=== PATIENT | female | born 1985 | race Caucasian/White ===

== ENCOUNTER → 2022-09-15 | Outpatient (CLI) | payer MEDICAID, SELFPAY ==
--- NOTE | 2022-09-15 15:36 | MRI_ITS ---
STUDY: MRI THORACIC SPINE WITHOUT CONTRAST REASON FOR EXAM: Female, 36 years old. pain TECHNIQUE: Standardized fat and water weighted pulse sequences were obtained in the sagittal and axial planes. Contrast: No contrast administered. COMPARISON: None. FINDINGS: Normal kyphosis of the thoracic spine. There is no substantial scoliosis. T1-2, T2-3, T3-4, T4-5, T5-6, T6-7, T7-8, T8-9, T9-10, T10-11, T11-12: Normal endplates. Normal disc hydration, heights and morphology of the corresponding intervertebral discs. Normal central canal and intervertebral neural foramina at the corresponding levels. Normal visualized thoracic cord. Normal conus medullaris that terminates at the . The soft tissue structures are unremarkable. MRI/Spine Thoracic (Routine) IMPRESSION: Normal unenhanced MRI examination of the thoracic spine. Electronically Signed: Joao Gaspar MD at 18:42 EST ,
--- NOTE | 2022-09-15 15:36 | MRI_ITS ---
PROCEDURE: LUMBAR SPINE MRI WITHOUT CONTRAST COMPARISONS: None CLINICAL INDICATION: Back injury in May with persistent low back pain TECHNIQUE: Noncontrast lumbosacral spine MRI study was performed multiple sequences in sagittal and axial planes. FINDINGS: Alignment of the lumbosacral spine is normal. Normal vertebral marrow signal. Normal partially visualized sacroiliac joints. The conus medullaris terminates at L1-2. No abnormal signal within the visualized cord. L1-L2: Normal disc height and morphology. Normal spinal canal and neuroforamina. L2-L3: Normal disc height and morphology. Normal spinal canal and neuroforamina. L3-L4: Normal disc height and morphology. Normal spinal canal and neuroforamina. L4-L5: Disc bulge and posterior annular fissure. Normal spinal canal and neuroforamina. L5-S1: Normal disc height and morphology. Normal spinal canal and neuroforamina. Normal appearance of the paraspinous muscles. MRI/Spine Lumbar (Routine) IMPRESSION: Disc bulge and posterior annular fissure at L4-5. No associated spinal canal or neural foraminal stenosis. Electronically Signed: Bert Mcclure MD at 17:09 EST ,
== END | disposition home or self-care (01) ==
LOC: MRI 15:31
PROVIDERS: PCP Nurse Practitioner Family; Referring Provider Orthopaedic Surgery; Visit Provider Orthopaedic Surgery
DX: S33.5XXA Sprain of ligaments of lumbar spine, initial encounter (principal); S23.9XXA Sprain of unspecified parts of thorax, initial encounter
CPT/HCPCS: 72146; 72148

== ENCOUNTER → 2023-06-02 | Outpatient (CLI) | payer MEDICAID, SELFPAY ==
--- NOTE | 2023-06-02 10:00 | MRI_ITS ---
STUDY: MRI LUMBAR SPINE WITHOUT CONTRAST REASON FOR EXAM: Female, 37 years old. Pain in low back and ribs, sharp/achy/tingling bilateral post. legs x1+yrs, [facility] TECHNIQUE: Standardized fat and water weighted pulse sequences were obtained in the sagittal and axial planes. COMPARISON: MRI lumbar spine without contrast 09/15/2022. FINDINGS: T10-T11, T11-T12 and T12-L1: (Sagittal only). Normal endplates. Normal disc height, hydration and morphology. Normal central canal and bilateral intervertebral neural foramina. Normal lumbar lordosis. There is no substantial scoliosis. Normal conus medullaris that terminates at the mid L1 vertebral body level. L1-2: Normal endplates. Normal disc height, hydration and morphology. Normal bilateral facet joints. Normal central canal and bilateral lateral recesses. Normal bilateral intervertebral neural foramina. L2-3: Normal endplates. Normal disc height, hydration and morphology. Normal bilateral facet joints. Normal central canal and bilateral lateral recesses. Normal bilateral intervertebral neural foramina. L3-4: Normal endplates. Normal disc height, hydration and morphology. Normal bilateral facet joints. Normal central canal and bilateral lateral recesses. Normal bilateral intervertebral neural foramina. L4-5: Normal endplates. Normal disc height with moderate loss of disc hydration. Mild left degenerative facet arthropathy. Normal right facet joint. Normal central canal and bilateral lateral recesses. Normal bilateral intervertebral neural foramina. L5-S1: Normal endplates. Normal disc height, hydration and morphology. Normal bilateral facet joints. Normal central canal and bilateral lateral recesses. Normal bilateral intervertebral neural foramina. Normal visualized sacral ala. Normal visualized paraspinous soft tissue structures. MRI/Spine Lumbar (Routine) IMPRESSION: 1. No MRI evidence of lumbar extruded disc fragment, disc protrusion, spinal stenosis or nerve root displacement. 2. No significant interval change when compared to 09/15/2022. Electronically Signed: Xavier Whipple MD at 10:53 EDT ,
== END | disposition home or self-care (01) ==
LOC: MRI 09:10
PROVIDERS: PCP Nurse Practitioner Family; Referring Provider Orthopaedic Surgery; Visit Provider Orthopaedic Surgery
DX: M54.50 Low back pain, unspecified (principal)
CPT/HCPCS: 72148

== ENCOUNTER → 2025-03-26 | Outpatient (CLI) | payer MEDICAID, SELFPAY ==
[2025-03-26 17:12] LABS: Hematocrit 39.3 % (37-47); Hemoglobin 13.5 g/dL (12.0-15.0); Immature Granulocytes Count 0.090 X10^3/uL (0.0-0.0); Mean Corp Hgb Conc 34.4 g/dL (32-36); Mean Corpuscular Volume 86.9 fL (81-99); Mean Platelet Vol. 10.2 fl (6.2-12.0); NRBC Flagged by Analyzer 0 % (0-5); Platelet Count 279 K/mm3 (150-450); RBC Distribution Width CV 13.6 % (11.6-14.6); RBC Distribution Width SD 43.1 fl (35.1-43.9); Red Blood Count 4.52 M/mm3 (4.2-5.4); White Blood Count 9.0 K/mm3 (4.4-11.0)
[2025-03-26 17:33] LABS: AST(SGOT) 20 U/L (<=31); Alanine Aminotransfer ALT/SGPT 24 U/L (<=34); Albumin, Serum 4.5 g/dL (3.5-5.0); Alkaline Phosphatase 97 U/L (35-104); Anion Gap 15 (5-15); BUN 12 mg/dL (4-19); BUN/Creat Ratio 13.9 RATIO (10-20); Calcium,Total 9.6 mg/dL (7.6-11.0); Carbon Dioxide 18.9 mmol/L (21.0-32.0); Chloride 103 mmol/L (98-108); Cholesterol 147 mg/dL (<=200); Free T3 2.9 pg/mL (2.18-3.98); Globulin 3.2 g/dL (2.2-4.2); Glucose 96 mg/dL (70-99); Low Density Lipoprotein Calc. 62 mg/dL; Potassium 4.0 mmol/L (3.3-5.1); Triglycerides 204 mg/dL; Uric Acid 4.2 mg/dL (2.6-6.0); Very Low Density Lipoprotein 41 mg/dL (5-40); cholesterol:hdl ratio screen 3.33
--- OUTSIDE RECORDS SUMMARY | 2025-03-26 23:03 | XMS RPT_ITS | CCD ---
Author Organization [facility] Care Team Providers Care Roll Up Guider Operator Name Role Phone LILI CARLOS DO Unavailable Unavailable DIDURLILI DO Unavailable Unavailable DIDURLILI DO Unavailable Unavailable CHRISTIANA, DESI E Unavailable Unavailable CHRISTIANA, DESI E Unavailable Unavailable CHRISTIANA, DESI E Unavailable Unavailable TAMIKA MARCIAL CNP Unavailable Unavailable PROVIDER, UNKNOWN Unavailable Unavailable PROVIDER, UNKNOWN Unavailable Unavailable TAMIKA MARCIAL CNP Referring Unavailable TAMIKA MARCIAL CNP Consulting Unavailable CHELSIE, DR JUAN MANUEL Campoverde Attending Unavailable HOLGUIN, DR JUAN MANUEL Campoverde Primary Care Unavailable HOLGUIN, DR JUAN MANUEL Campoverde Admitting Unavailable PROVIDER, UNKNOWN Consulting Unavailable PROVIDER, UNKNOWN Consulting Unavailable Unavailable Primary Care Provider UnavailManny Cheng Attending Unavailable Manny Wang Referring Unavailable Ungerer, Justa Primary Care Unavailable Ungerer, Justa Referring Unavailable Manny Wang Attending Unavailable Ungerer, Justa Primary Care Unavailable RollyJules david Attending Unavailable Ungerer, Justa Primary Care Unavailable Ungerer, Justa Referring Unavailable Ungerer, Justa Primary Care Unavailable David Chao Attending Unavailable Ungerer, Justa Primary Care Unavailable RollyJules Attending Unavailable Ungerer, Justa Primary Care Unavailable Ungerer, Justa Referring Unavailable Manny Wang Attending Unavailable Unavailable Primary Care Provider Unavailabl e UNGERER TRAFFIC ENGINEERING DIRECTOR-SENIOR ENVIRONMENTAL PRACTICE LEADER, JUSTA Primary Care Physician KESHAV TRAFFIC ENGINEERING DIRECTOR-SENIOR ENVIRONMENTAL PRACTICE LEADER, VERONICA Eric Attending Unava ilable UNGERER TRAFFIC ENGINEERING DIRECTOR-SENIOR ENVIRONMENTAL PRACTICE LEADER, JUSTA Primary Care Unalexy SALDIVAR APRN-SENIOR ENVIRONMENTAL PRACTICE LEADER, VERONICA Eric Attending Unava ilable UNGERER TRAFFIC ENGINEERING DIRECTOR-SENIOR ENVIRONMENTAL PRACTICE LEADER, JUSTA Primary Care Unavai anastasiia SALDIVAR TRAFFIC ENGINEERING DIRECTOR-SENIOR ENVIRONMENTAL PRACTICE LEADER, VERONICA Eric Attending Unava ilable UNGERER TRAFFIC ENGINEERING DIRECTOR-SENIOR ENVIRONMENTAL PRACTICE LEADER, JUSTA Primary Care LILI Katz MD Attending Unavailable UNGERER TRAFFIC ENGINEERING DIRECTOR-SENIOR ENVIRONMENTAL PRACTICE LEADER, [facility] Primary Care Liliana NGO MD, LILI Jean-Baptiste Attending Unavailable UNGERER TRAFFIC ENGINEERING DIRECTOR-SENIOR ENVIRONMENTAL PRACTICE LEADER, [facility] Primary Care Liliana MCKEON MD, MEGAN Consulting Unavailable SALDIVAR TRAFFIC ENGINEERING DIRECTOR-SENIOR ENVIRONMENTAL PRACTICE LEADER, VERONICA Eric Attending Unava ilable UNGERER TRAFFIC ENGINEERING DIRECTOR-SENIOR ENVIRONMENTAL PRACTICE LEADER, [facility] Primary Care Unavai lable SALDIVAR TRAFFIC ENGINEERING DIRECTOR-SENIOR ENVIRONMENTAL PRACTICE LEADER, VERONICA D Attending Unava ilable UNGERER TRAFFIC ENGINEERING DIRECTOR-SENIOR ENVIRONMENTAL PRACTICE LEADER, [facility] Care Liliana NGO MD, LILI Jean-Baptiste Attending Unavailable UNGERER TRAFFIC ENGINEERING DIRECTOR-SENIOR ENVIRONMENTAL PRACTICE LEADER, [facility] Primary Care Liliana NGO MD, LILI Jean-Baptiste Attending Unavailable UNGERER TRAFFIC ENGINEERING DIRECTOR-SENIOR ENVIRONMENTAL PRACTICE LEADER, [facility] Care Unavai lable SALDIVAR TRAFFIC ENGINEERING DIRECTOR-SENIOR ENVIRONMENTAL PRACTICE LEADER, VERONICA Eric Attending Unava ilable UNGERER TRAFFIC ENGINEERING DIRECTOR-SENIOR ENVIRONMENTAL PRACTICE LEADER, [facility] Liliana NGO MD, LILI Jean-Baptiste Attending Unavailable PHYSICIAN, NONE Primary Care Unavailable UNGERER TRAFFIC ENGINEERING DIRECTOR-SENIOR ENVIRONMENTAL PRACTICE LEADER, [facility] Liliana NGO MD, LILI Jean-Baptiste Attending Unavailable STEVEN NEWTON, LILI Jean-Baptiste Attending Unavailable RAHEEM SINGH MD Consulting Unavailable UNGERER TRAFFIC ENGINEERING DIRECTOR-SENIOR ENVIRONMENTAL PRACTICE LEADER, [facility] TAMIKA Castillo CNP Referring Unavailable [facility] JUSTA CONTAINER SHOP WELDER Primary Care Unavailable [facility], JUSTA CONTAINER SHOP WELDER Attending Unavailable UNGERER, JUSTA CONTAINER SHOP WELDER Admitting Unavailable TAMIKA MARCIAL CNP Consulting Unavailable PROVIDER, UNKNOWN Consulting Unavailable PROVIDER, UNKNOWN Consulting Unavailable RENETTA MESSINA MD Primary Care Unava ilable RENETTA MESSINA MD Attending Unava ilable RENETTA MESSINA MD Admitting Unava ilable TAMIKA MARCIAL CNP Consulting Unavailable PROVIDER, UNKNOWN Consulting Unavailable PROVIDER, UNKNOWN Consulting Unavailable HOLGUIN, JUAN MANUEL C Primary Care Unavailable JUAN MANUEL HOLGUIN C Attending Unavailable JUAN MANUEL HOLGUIN C Admitting Unavailable TAMIKA MARCIAL CNP Consulting Unavailable TAMIKA MARCIAL CNP Referring Unavailable PROVIDER, UNKNOWN Consulting Unavailable PROVIDER, UNKNOWN Consulting Unavailable HOLGUIN, JUAN MANUEL C Primary Care Unavailable HOLGUIN JUAN MANUEL C Attending Unavailable TAMIKA MARCIAL CNP Consulting Unavailable HOLGUIN, JUAN MANUEL C Admitting Unavailable TAMIKA MARCIAL CNP Referring Unavailable PROVIDER, UNKNOWN Consulting Unavailable PROVIDER, UNKNOWN Consulting Unavailable MARVIN WEISS Primary Care Unavailable MARVIN WEISS Attending Unavailable MARVIN WEISS Admitting Unavailable TAMIKA MARCIAL CNP Consulting Unavailable TAMIKA MARCIAL CNP Referring Unavailable PROVIDER, UNKNOWN Consulting Unavailable PROVIDER, UNKNOWN Consulting Unavailable TAMIKA MARCIAL CNP Referring Unavailable MARVIN WEISS Primary Care Unavailable MARVIN WEISS Attending Unavailable TAMIKA MARCIAL CNP Consulting Unavailable MARVIN WEISS Admitting Unavailable PROVIDER, UNKNOWN Consulting Unavailable PROVIDER, UNKNOWN Consulting Unavailable STEVEN LILI Christina Primary Care Unavailable LILI NGO Attending Unavailable STEVEN LILI Christina Admitting Unavailable TAMIKA MARCIAL CNP Consulting Unavailable PROVIDER, UNKNOWN Consulting Unavailable PROVIDER, UNKNOWN Consulting Unavailable Ungerer CONTAINER SHOP WELDER-C, Justa Primary Care Provider [phone] Ungerer CONTAINER SHOP WELDER-C, Justa Attending Provider [phone] Ungerer CONTAINER SHOP WELDER-C, Justa Referring Provider [phone] Allergies Allergy Classification Reported Allergen(s) Allergy Type Date of Onset Reaction(s) Facility Opioid Agonists (2 sources) traMADol; Translations: [tramadol] Drug Allergy Eruption of skin (disorder) [facility] (3 sources) traMADol Drug Allergy [facility] (2 sources) BANDAIDS; Translations: [BANDAIDS] Propensity to adverse reactions (disorder) [facility] Repository (1 source) traMADol Drug Allergy 4 [facility] Repository (2 sources) Dressing: Non-Medicated; Translations: [Dressing: Non-Medicated] Propensity to adverse reactions (disorder) 4 Rash [facility] Repository (10 sources) Adhesive bandage Allergy to substance Eruption of skin (disorder) [facility] (9 sources) traMADol; Translations: [tramadol] Drug Allergy 5 Eruption of skin (disorder) [facility] Medications Current Medications Medication Drug Class(es) Dates Sig (Normalized) Sig (Original) acetaminophen 325 mg / oxyCODONE hydrochloride 5 mg oral tablet (12 sources) Opioid Agonist Start: 12-29-2024 End: 01-01-2025 take 1 tablet by mouth every four hours as needed for pain Percocet 5 mg-325 mg oral tablet Dose = 1 tab(s), Oral, q4h, PRN for pain, X 3 day(s), # 12 tab(s), 0 Refill(s), Pharmacy: [id number], Acute post-operative pain, 154.9, cm, 12/29/24 8:16:00 EDT, Height, 108.8, kg, 12/29/24 8:16:00 EDT, Dosing Weight Start Date: 12/29/24 Stop Date: 01/01/25 Status: Ordered Quantity: 12.0 Unit: tab(s) Repeat number: 1 Indications: Other acute postprocedural pain; Start: 12-26-2024 End: 12-31-2024 take 1 tablet by mouth every six hours as needed for pain Percocet 5 mg-325 mg oral tablet Dose = 1 tab(s), Oral, q6h, PRN for pain, X 5 day(s), # 12 tab(s), 0 Refill(s), Pharmacy: [id number], Ureteral stone, 155, cm, 12/22/24 11:56:00 EDT, Height, 108, kg, 12/22/24 11:56:00 EDT, Dosing Weight Start Date: 12/26/24 Stop Date: 12/31/24 Status: Ordered Quantity: 12.0 Unit: tab(s) Repeat number: 1 Indications: Calculus of ureter; Start: 12-21-2023 take 1 tablet by sancho th three times daily as needed for pain acetaminophen-oxyCODONE 325 mg-5 mg oral tablet Dose = 1 tab(s), Oral, TID, PRN as needed for pain, 0 Refill(s) Start Date: 12/21/23 Status: Ordered Repeat number: 1 Start: 12-21-2023 take 1 tablet by sancho th every six hours acetaminophen-oxyCODONE 325 mg-5 mg oral tablet tab(s), Oral, q6hr, 0 Refill(s) Start Date: 12/21/23 Status: Ordered busPIRone hydrochloride 5 mg oral tablet (11 sources) Start: 12-21-2023 busPIRone 5 mg oral tablet Dose : 5 mg = 1 tab(s), Oral, BID, 0 Refill(s) Start Date: 12/21/23 Status: Ordered Repeat number: 1 Start: 05-06-2023 Buspirone 10 m g tablet Active mg PO May 06, 2023 12:00am cephalexin 500 mg oral capsule (1 source) Cephalosporin Antibacterial Start: 12-12-2024 cephalexin 500 mg oral capsule Dose : 500 mg = 1 cap(s), 0 Refill(s), 101.9 Start Date: 12/12/24 Status: Ordered Repeat number: 1 cetirizine hydrochloride 10 mg oral tablet (12 sources) Histamine-1 Receptor Antagonist Start: 07-15-2022 End: 05-06-2023 cetirizine 10 mg oral tablet Dose : 10 mg = 1 tab(s), Oral, qHS, 0 Refill(s) Start Date: 12/21/23 Status: Ordered Repeat number: 1 ciprofloxacin 500 mg oral tablet (3 sources) Quinolone Antimicrobial Start: 12-29-2024 End: 01-01-2025 Cipro 500 mg oral tablet Dose : 500 mg = 1 tab(s), Oral, q12h, X 3 day(s), # 6 tab(s), 0 Refill(s), 01/01/25 11:36:00 AM EDT, Pharmacy: [id number], 154.9, cm, 12/29/24 8:16:00 EDT, Height, 108.8, kg, 12/29/24 8:16:00 EDT, Dosing Weight Start Date: 12/29/24 Stop Date: 01/01/25 Status: Ordered Quantity: 6.0 Unit: tab(s) Repeat number: 1 Start: 03-29-2024 End: 03-31-2024 Cipro 500 mg oral tablet Dos e : 500 mg = 1 tab(s), Oral, q12h, X 2 day(s), # 4 tab(s), 0 Refill(s), 03/31/24 1:44:00 PM EDT, Pharmacy: [id number], Ureteral calculus, 155, cm, 03/29/24 13:05:00 EDT, Height, 101.9, kg, 03/29/24 13:05:00 EDT, Dosing Weight Start Date: 03/29/24 Stop Date: 03/31/24 Status: Ordered Start: 03-03-2024 End: 03-06-2024 Cipro 500 mg oral tablet Dos e : 500 mg = 1 tab(s), Oral, q12h, X 3 day(s), # 6 tab(s), 0 Refill(s), 03/06/24 3:08:00 PM EDT, Pharmacy: [id number], 154.9, cm, 03/03/24 11:02:00 EDT, Height, 101.6, kg, 03/03/24 11:02:00 EDT, Dosing Weight Start Date: 03/03/24 Stop Date: 03/06/24 Status: Ordered FLUoxetine 20 mg oral capsule (14 sources) Serotonin Reuptake Inhibitor Start: 02-21-2024 FLUoxetine 60 mg ora l tablet Dose : 60 mg = 1 tab(s), Oral, qAM Start Date: 02/21/24 Status: Ordered Repeat number: 1 Start: 05-06-2023 FLUoxetine 20 mg oral capsule Dose : 20 mg = 1 cap(s), Oral, qAM, # 30 cap(s), 0 Refill(s) Start Date: 12/22/24 Status: Ordered Quantity: 30.0 Unit: cap(s) Repeat number: 1 Start: 05-06-2023 FLUoxetine 40 mg oral capsule Dose : 40 mg = 1 cap(s), Oral, qAM, # 30 cap(s), 0 Refill(s) Start Date: 12/22/24 Status: Ordered Quantity: 30.0 Unit: cap(s) Repeat number: 1 fluticasone propionate 0.05 mg/actuat metered dose nasal spray (11 sources) Corticosteroid Start: 12-21-2023 take 100 ug nasal route once daily at bedtime fluticasone 50 mcg/inh NASAL spray 100 mcg Dose = 2 spray(s), Nostril, each, qHS, 0 Refill(s) Start Date: 12/21/23 Status: Ordered Repeat number: 1 Start: 12-21-2023 take 50 ug nasal rou te once daily fluticasone 50 mcg/inh NASAL spray 50 mcg Dose = 1 spray(s), Nostril, each, qDay, shake well before using, # 9.9 mL, 0 Refill(s) Start Date: 12/21/23 Status: Ordered Start: 05-06-2023 Fluticasone Pr opionate 50 mcg/actuation spray,suspension Active INTRANASAL May 06, 2023 12:00am gabapentin 600 mg oral tablet (10 sources) Anti-epileptic Agent Start: 12-21-2023 gabapenti n 600 mg oral tablet Dose : 600 mg = 1 tab(s), Oral, TID, 0 Refill(s) Start Date: 12/21/23 Status: Ordered Repeat number: 1 Ipratropium (10 sources) Anticholinergic Start: 12-21-2023 ipratropium (0 .06%) nasal 42 mcg/spray (Atrovent Nasal) Dose = 2 spray(s), Nasal, qAM, 0 Refill(s) Start Date: 12/21/23 Status: Ordered Repeat number: 1 Start: 12-21-2023 ipratropium (0 .06%) nasal 42 mcg/spray (Atrovent Nasal) Dose = 2 spray(s), Nasal, QID, PRN as needed for allergy symptoms, 0 Refill(s) Start Date: 12/21/23 Status: Ordered Repeat number: 1 Start: 12-21-2023 ipratropium (0 .06%) nasal 42 mcg/spray (Atrovent Nasal) Dose = 2 spray(s), Nasal, QID, PRN as needed for allergy symptoms, 0 Refill(s) Start Date: 12/21/23 Status: Ordered Start: 12-21-2023 ipratropium (0 .06%) nasal 42 mcg/spray (Atrovent Nasal) Nasal, 0 Refill(s) Start Date: 12/21/23 Status: Ordered methocarbamol 500 mg oral tablet (10 sources) Muscle Relaxant Start: 12-21-2023 methocarbamol 500 mg oral tablet Dose : 1,000 mg = 2 tab(s), Oral, qHS, 0 Refill(s) Start Date: 12/21/23 Status: Ordered Repeat number: 1 montelukast 10 mg oral tablet (11 sources) Leukotriene Receptor Antagonist Start: 05-06-2023 montelukast 10 mg oral tablet Dose : 10 mg = 1 tab(s), Oral, qAM, 0 Refill(s) Start Date: 12/21/23 Status: Ordered Repeat number: 1 24 hr oxybutynin chloride 10 mg extended release oral tablet (3 sources) Cholinergic Muscarinic Antagonist Start: 03-03-2024 take 1 tablet by mouth every hour, then take 1 tablet by mouth once daily oxybutynin 10 mg/24 hr oral tablet, extended release Dose : 10 mg = 1 tab(s), Oral, qDay, # 30 tab(s), 6 Refill(s), Pharmacy: [id number], 154.9, cm, 03/03/24 11:02:00 EDT, Height, kg, 03/03/24 11:02:00 EDT, Dosing Weight Start Date: 03/03/24 Status: Ordered Quantity: 30.0 Unit: tab(s) Repeat number: 7 pantoprazole 40 mg delayed release oral tablet (11 sources) Proton Pump Inhibitor Start: 05-06-2023 pantoprazole 40 mg oral enteric coated tablet Dose : 40 mg = 1 tab(s), Oral, qAM, 0 Refill(s) Start Date: 12/21/23 Status: Ordered Repeat number: 1 prazosin 2 mg oral capsule (11 sources) alpha-Adrenergic Liz Start: 12-21-2023 prazosin 2 mg oral capsule Dose : 2 mg = 1 cap(s), Oral, qHS, 0 Refill(s) Start Date: 12/21/23 Status: Ordered Repeat number: 1 Start: 05-06-2023 Prazosin 1 mg capsule Active mg PO May 06, 2023 12:00am red yeast rice 600 mg oral capsule (1 source) Start: 05-06-2023 take 1 capsule by mouth once daily Red Yeast Rice 600 mg capsule Active 600 mg PO DAILY May 06, 2023 12:00am give with meal/snack Red Yeast Rice 600 mg oral capsule (10 sources) Start: 12-21-2023 take 1 capsule by mouth once daily Red Yeast Rice 600 mg oral capsule 1 cap, Oral, Daily, 0 Refill(s) Start Date: 12/21/23 Status: Ordered Repeat number: 1 Start: 12-21-2023 take 1 capsule by mo uth once daily Red Yeast Rice 600 mg oral capsule 1 cap, Oral, Daily, 0 Refill(s) Start Date: 12/21/23 Status: Ordered Start: 12-21-2023 Red Yeast Rice 600 mg oral capsule 0 Refill(s) Start Date: 12/21/23 Status: Ordered rosuvastatin calcium 40 mg oral tablet (11 sources) HMG-CoA Reductase Inhibitor Start: 12-21-2023 rosuvastatin 40 mg oral tablet Dose : 40 mg = 1 tab(s), Oral, qHS, 0 Refill(s) Start Date: 12/21/23 Status: Ordered Repeat number: 1 Start: 05-06-2023 Rosuvastatin 2 0 mg tablet Active 20 mg PO May 06, 2023 12:00am traZODone hydrochloride 50 mg oral tablet (11 sources) Serotonin Reuptake Inhibitor Start: 05-06-2023 traZODone 50 mg oral tablet Dose : 50 mg = 1 tab(s), Oral, qHS, 0 Refill(s) Start Date: 12/21/23 Status: Ordered Repeat number: 1 trospium chloride 20 mg oral tablet (1 source) Cholinergic Muscarinic Antagonist Start: 12-29-2024 End: 01-12-2025 trospium 20 mg oral tablet Dose : 20 mg = 1 tab(s), Oral, BID, # 28 tab(s), 0 Refill(s), Pharmacy: [id number], 154.9, cm, 12/29/24 8:16:00 EDT, Height, kg, 12/29/24 8:16:00 EDT, Dosing Weight Start Date: 12/29/24 Stop Date: 01/12/25 Status: Ordered Quantity: 28.0 Unit: tab(s) Repeat number: 1 Vitamin D3 50 mcg (2000 intl units) oral capsule (8 sources) Start: 02-21-2024 take 1 tablet by mouth once daily Vitamin D3 50 mcg (2000 intl units) oral capsule 1 tab(s), Oral, Daily, 0 Refill(s) Start Date: 02/21/24 Status: Ordered Repeat number: 1 Start: 02-21-2024 take 1 tablet by sancho th once daily Vitamin D3 50 mcg (2000 intl units) oral capsule 1 tab(s), Oral, Daily, 0 Refill(s) Start Date: 02/21/24 Status: Ordered Vitamin D3 62.5 mcg (2500 in tl units) oral capsule (2 sources) Start: 12-21-2023 Vitamin D3 62. 5 mcg (2500 intl units) oral capsule Dose : 62.5 mcg = 1 cap(s), Oral, qDay, with a fatty meal, # 100 cap(s), 0 Refill(s) Start Date: 12/21/23 Status: Ordered Completed/Discontinued Medications Medication Drug Class(es) Dates Sig (Normalized) Sig (Original) calcium ascorbate 500 mg oral tablet (1 source) Start: 07-15-2022 End: 05-06-2023 take 1 tablet by mouth once daily Ascorbate Calcium (Vitamin C) 500 mg tablet Discontinued 500 mg PO DAILY July 15, 2022 1:00am May 06, 2023 2:29pm calcium carbonate 1500 mg / cholecalciferol 0.01 mg oral tablet (1 source) Vitamin D Start: 05-06-2023 End: 03-26-2025 Calcium Carbonate-Vitamin D3 600 mg-20 mcg (800 unit) tablet Discontinued {tbl} PO May 06, 2023 12:00am March 26, 2025 1:34pm cyclobenzaprine hydrochloride 7.5 mg oral tablet (1 source) Muscle Relaxant Start: 07-15-2022 End: 03-26-2025 take 1 tablet by mouth at bedtime Cyclobenzaprine 7.5 mg tablet Discontinued 7.5 mg PO AT BEDTIME July 15, 2022 1:00am March 26, 2025 1:34pm oxyCODONE hydrochloride 5 mg oral tablet (1 source) Opioid Agonist Start: 07-15-2022 End: 03-26-2025 take 1 tablet by mouth twice daily as needed Oxycodone 5 mg tablet Discontinued 5 mg PO TWICE A DAY as needed 0 July 15, 2022 1:00am March 26, 2025 1:35pm Problems Active Problems Problem Classification Problem Date Documented Date Episodic/Chronic Administrative/socia l admission (2 sources) First encounter by subject; Translations: [Persons encountering health services in other specified circumstances] 03-26-2025 Episodic Anxiety disorders (16 sources) Anxiety; Translations: [Posttraumatic stress disorder] 02-21-2024 Chronic Disorders of lipid metabolism (10 sources) Hypercholesterolemia; Translations: [Pure hypercholesterolemia, unspecified] 02-21-2024 Chronic Esophageal disorders (8 sources) Gastroesophageal reflux disease 02-21-2024 Chronic Genitourinary congenital anomalies (12 sources) Multiple congenital cysts of kidney; 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] Onset: 02-21-2024 12-21-2023 Chronic Headache; including migraine (8 sources) Frequent headache 02-21-2024 Episodic Mood disorders (18 sources) Bipolar disorder; Translations: [Depressive disorder] 02-21-2024 Chronic Nutritional deficiencies (8 sources) Vitamin D deficiency 02-21-2024 Chronic Other lower respiratory disease (1 source) Rib pain; Translations: [Pleurodynia] 10-21-2023 Episodic Comment on above: Her left-sided rib p ain Other nervous system disorders (1 source) Postoperative pain ; Translations: [Other acute postprocedural pain] Onset: 12-29-2024 Episodic Other nervous system disorders (1 source) Other acute postprocedural pain; Translations: [Other acute postprocedural pain] Onset: 12-29-2024 Episodic Other upper respiratory disease (8 sources) Seasonal allergy 02-21-2024 Chronic Schizophrenia and other psychotic disorders (9 sources) Schizophrenia; Translations: [Schizophrenia, unspecified] 02-21-2024 Chronic Spondylosis; intervertebral disc disorders; other back problems (14 sources) Other intervertebral disc degeneration, lumbar region; Translations: [Other intervertebral disc displacement, lumbar region] Onset: 05-06-2023 02-21-2024 Chronic Comment on above: I went over her lumb ar spine MRI send dynamic x-rays from today. Sprains and strains (2 sources) Injury of musculoskeletal system; Translations: [Sprain of unspecified parts of thorax, initial encounter] 10-21-2023 Episodic Unclassified (1 source) Low back pain, unspecified; Translations: [Low back pain, unspecified] Onset: 06-07-2023 Past or Other Problems Problem Classification Problem Date Documented Da te Episodic/Chronic Calculus of urinary tract (20 sources) Kidney stone; Translations: [Ureteric stone] Onset: 02-21-2024 12-21-2023 Episodic Malaise and fatigue (1 source) Other fatigue; Translations: [Other fatigue] Onset: 10-04-2024 Episodic Other lower respiratory disease (1 source) Pleurodynia; Translations: [Pleurodynia] Onset: 06-11-2023 Episodic Results Test Name Value Interpretation Reference Range Facility ED MED ADMINISTRATION DETAIL on 03-06-2025 ED MED ADMINISTRATION DETAIL Channel Marketing Program Manager Medication Administration Record [address] [place] [address] [id number] 03/01/2025 Patient: FRANTZ SOLORZANO Sex: Female : 1985 Age: 39y MEASUREMENTS: Wt: 106.6 kg, Ht/Dc: 61.0 in, BMI: 44.40 ALLERGIES: bandaids, tramadol Medication Ordered Medication Administration Date/Time Zofran IVP 4 mg 13:03/01 Zofran IVP 4 mg given via Site# 1. Allergies verified Given (NOW x1) and confirmed 5 rights. IV patency established. IV site checked: no 13:22 03/01/2025 pain, redness, or swelling. IV flushed thoroughly pre-medication Emily Musa R.N. administration. Information reviewed with patient. Verbalizes Scanned understanding. - 13:22 Emily Musa R.N. IV NS 0.9 % 1000 13:03/01 IV NS 0.9 % 1000 mL started in bag#1 1000 mL at Started mL at 999 mL/hr 999 mL/hr via Site# 1. Allergies verified and confirmed 5 rights. Via 13:21 03/01/2025 (NOW x1) IV pump. IV patency established. IV site checked: no pain, redness, Emily Musa R.N. or swelling. IV flushed thoroughly pre-medication administration. Stopped Information reviewed with patient. Verbalizes understanding. - 14:23 03/01/2025 13:22 John Beckett R.N. Scanned 14:23 03/01 Medication Discontinued: bag #1 completed. Total amount infused: 1000 mL. IV patency established. IV site checked: no pain, redness, or swelling. IV flushed thoroughly post-medication administration. - 14:23 Emily Musa R.N. 1 of 1 Normal [facility] ED NURSES CLINICAL NOTEon ED NURSES CLINICAL NOTE Nurse Narrative Nurse Clinical Narrative [address] [address] [id number] 03/01/2025 12:55:00 Patient: FRANTZ SOLORZANO Sex: Female : 1985 Age: 39y Disposition: Discharge Disposition Decision Time: 15:14 03/01/2025 Departure Time: 15:21 03/01/2025 TRIAGE Arrived by private vehicle. Historian: (patient). Accompanied by family. Triage time: 12:55 03/01/2025. Acuity: LEVEL 3. Chief Complaint: NAUSEA and DIARRHEA. Onset. (4 days ago). The patient has had nausea and diarrhea. ( dizziness, abd pain). Treatment METEOROLOGY FACULTY MEMBER: (pepto). SEPSIS SCREEN: NEGATIVE. SIRS criteria negative. No possible sources of infection. -- 12:03/01/25 EDT Emily Musa R.N. 12:03/01/25. BP: 120/73 MAP: 89. HR: 86. RR: 16. O2 saturation: 95% Temperature: 98.1 F. Pain level now 7/10. -- 12:03/01/25 EDT Emily Musa R.N. Measurements: 12:57 03/01/25 Wt: 106.6 kg, Ht/Dc: 61.0 in, BMI: 44.40 -- 12:57 03/01/25 EDT Emily Musa R.N. Medications: VITAMIN D3: Stopped 02/26/2025. -- 12:03/01/25 EDT Emily Musa R.N. 1 of 5 Nurse Narrative RED YEAST RICE CAP: 1 capsule once a day . -- 12:03/01/25 EDT Emily Musa R.N. trazodone 50 mg tablet: 1 tablet every night at bedtime . -- 12:03/01/25 EDT Emily Musa R.N. rosuvastatin 40 mg tablet: 1 tablet once a day . -- 12:03/01/25 EDT Emily Musa R.N. prazosin 2 mg capsule: 1 capsule once a day . -- 12:03/01/25 EDT Emily Musa R.N. pantoprazole 40 mg tablet,delayed release: 1 tablet once a day . -- 12:03/01/25 EDT Emily Musa R.N. montelukast 10 mg tablet: 1 tablet once a day . -- 12:03/01/25 EDT Emily Musa R.N. methocarbamol 500 mg tablet: Stopped 02/26/2025. -- 12:59 03/01/25 HUET Emily Musa R.N. ipratropium bromide 42 mcg (0.06 %) nasal spray: 1 spray once a day . -- 12:59 03/01/25 EDT Emily Musa R.N. gabapentin 600 mg tablet: Stopped 02/26/2025. -- 12:59 03/01/25 EDT Emily Musa R.N. fluticasone propionate 50 mcg/actuation nasal spray,suspension: 1 spray once a day . -- 12:59 03/01/25 HUET Emily Musa R.N. fluoxetine 20 mg capsule: 3 capsule once a day . -- 12:59 03/01/25 EDT Emily Musa R.N. cetirizine 10 mg tablet: Stopped 02/26/2025. -- 12:59 03/01/25 EDT Emily Musa R.N. buspirone 5 mg tablet: 1 tablet once a day . -- 12:59 03/01/25 HUET Emily Musa R.N. Allergy Relief (cetirizine) 10 mg tablet: 1 tablet once a day . -- 12:59 03/01/25 HUET Emily Musa R.N. 12:55 03/01/25. Preferred Pharmacy: ([facility]). -- 12:59 03/01/25 HUET Emily Musa R.N. Allergies: bandaids -- 12:58 03/01/25 EDT Emily Musa R.N. tramadol -- 12:58 03/01/25 HUET Emily Musa R.N. Problems: Seasonal Allergies -- 12:59 03/01/25 HUET Emily Musa R.N. PTSD -- 12:03/01/25 EDT Emily Musa R.N. Depression -- 12:59 03/01/25 HUET Emily Musa R.N. Bipolar Disorder -- 12:59 03/01/25 EDT Emily Musa R.N. Hypercholesterolemia -- 12:03/01/25 EDT Emily Musa R.N. Schizophrenia -- 12:03/01/25 EDT Emily Musa R.N. Surgeries: Cholecystectomy -- 12:03/01/25 EDT Emily Musa R.N. Tubal Ligation -- 12:03/01/25 EDT Emily Musa R.N. -- 12:03/01/25 EDT Emily Musa R.N. 2 of 5 Nurse Narrative Dental Surgery -- 12:03/01/25 EDT Emily Musa R.N. Lithotripsy -- 12:03/01/25 EDT Emily Musa R.N. History 12:03/01/25. SOCIAL HX: Smoker- current status unknown. Alcohol use. No drug use. The patient has not traveled outside the [place] Infectious disease exposure: No infectious disease exposure. ABUSE ASSESSMENT: The patient answered yes to the question(s) Do you feel safe in your home? and no to the question(s) Are you afraid to go home?. SELF HARM ASSESSMENT: Self harm assessment was performed. The patient answered no to the question(s) Have you recently felt down, depressed, or hopeless? and Do you have thoughts of harming or killing yourself?. FALL RISK ASSESSMENT: Fall risk assessment completed. No risk factors identified. -- 12:03/01/25 EDT Emily Musa R.N. 12:03/01/25. PAST MEDICAL HX: LNMP: Last normal menstrual period now. -- 14:13 03/01/25 EDT Emily Musa R.N. Interventions 12:03/01/25. Advanced care plan discussed with patient. Patient does not have advanced directive. -- 12:03/01/25 HUET Emily Musa R.N. PHYSICAL ASSESSMENT 13:03/01/25. Ambulatory to room. GENERAL / NEURO / PSYCH: Alert. Oriented X 4. Appears in no acute distress. HEENT: Mucous membranes are pink. RESPIRATORY: Respirations not labored. Breath sounds within normal limits. CVS: Capillary refill less than 2 seconds. GI / : The patient has had nausea and diarrhea. Abdominal tenderness. SKIN: Skin is warm and dry. -- 13:01 03/01/25 EDT Emily Musa R.N. 3 of 5 Nurse Narrative (more content not included)... Normal [facility] ED ORDER SHEET (CPOE ONLY)on 03-06-2025 ED ORDER SHEET (CPOE ONLY) Order Sheet Order Sheet [facility] [address] [place] [address] [id number] 03/01/2025 Patient: FRANTZ SOLORZANO Sex: Female : 1985 Age: 39y MEASUREMENTS: Wt: 106.6 kg, Ht/Dc: 61.0 in, BMI: 44.40 ALLERGIES: bandaids, tramadol MEDICATION/IV/DRIP/F LUID ORDERS Order Description Priority Entered Acknowledged Completed Zofran IVP4 mg (NOW x1) 13:02 03/01/2025 13:22 Marvin Weiss, 03/01/2025 Charleen Musa R.N. Reason for ordering with alerts: Benefits outweigh risks --13:02 03/01/2025 Marvin Weiss D.O. IV NS 0.9 %1000 mL at 999 13:02 03/01/2025 13:22 mL/hr (NOW x1) Marvin Weiss, 03/01/2025 Charleen Musa R.N. LAB ORDERS Order Description Priority Entered Acknowledged Collected Completed CBC w Diff Stat Stat 13:02 03/01/2025 13:07 03/01/2025 13:12 03/01/2025 Emily Barger Lemasters, D.O. R.NNita RNitaNNita 1 of 2 Order Sheet CMP Stat Stat 13:02 03/01/2025 13:07 03/01/2025 13:12 03/01/2025 Emily Barger Lemasters, D.O. R.NNita R.N. Lipase Stat Stat 13:02 03/01/2025 13:07 03/01/2025 13:12 03/01/2025 Emily Barger Lemasters, D.O. R.NNita RNitaNNita Urinalysis Stat Stat 13:02 03/01/2025 13:07 03/01/2025 14:11 03/01/2025 Emily Barger Lemasters, D.O. R.NNita RNitaN. C Diff Complete Stat Stat 13:02 03/01/2025 13:07 03/01/2025 13:12 03/01/2025 Emily Barger Lemasters, D.O. R.NNita RNitaNNita Stool Gastrointestinal Stat 13:02 03/01/2025 13:07 03/01/2025 13:21 03/01/2025 Panel by PCR Emily Barger, [MAYRA] Charleen YanesNNita RChucho DIAGNOSTIC STUDY ORDERS Order Description Priority Entered Acknowledged Completed STAFF ORDERS Order Description Priority Entered Acknowledged Collected Completed IV Saline Lock 13:02 03/01/2025 13:07 03/01/2025 13:12 03/01/2025 Emily Barger Lemasters, D.O. R.N. R.NNita [Electronically signed by Marvin Weiss D.O. (03/01/2025 15:16 EDT)] 2 of 2 Normal [facility] ED PHYSICIAN CLINICAL REPORT on 03-06-2025 ED PHYSICIAN CLINICAL REPORT Narrative Physician Clinical Narrative [address] [address] [phone] 03/01/2025 12:55:00 Patient: FRANTZ SOLORZANO Sex: Female : 1985 Age: 39y Disposition: Discharge Disposition Decision Time: 15:14 03/01/2025 Measurements Wt: 106.6 kg, Ht/Dc: 61.0 in, BMI: 44.40 Initial Vital Sign Measured Time BP MAP HR RR O2Sat ETCO2 Temp Pain GCS RTS 12:58 03/01/2025 120/73 89 86 16 95% 98.1 F 7 Time Seen: 12:57 03/01/2025. Arrived- By private vehicle. Historian- patient. Independent historian- family. HISTORY OF PRESENT ILLNESS Chief Complaint: DIARRHEA. The patient has had nausea, vomiting and diarrhea. This started 4 days and is still present. (Patient presents with concern for diarrhea over the past 4 days. Multiple episodes per day. Initially dark however patient was taking Pepto-Bismol. States it now it is brown and green colored. Abdominal cramping which is relieved with bowel movement. One episode of nonbloody and nonbilious vomiting this morning. Denies any fever, chills, urinary symptoms. No recent antibiotic use.). REVIEW OF SYSTEMS : No difficulty with urination. CONSTITUTIONAL: No fever. 1 of 14 Narrative PAST HISTORY Bipolar Disorder Depression Hypercholesterolemia PTSD Schizophrenia Seasonal Allergies Surgeries: Cholecystectomy Dental Surgery Lithotripsy Tubal Ligation Medications: Allergy Relief (cetirizine) 10 mg tablet: 1 tablet once a day . buspirone 5 mg tablet: 1 tablet once a day . cetirizine 10 mg tablet: Stopped 02/26/2025. fluoxetine 20 mg capsule: 3 capsule once a day . fluticasone propionate 50 mcg/actuation nasal spray,suspension: 1 spray once a day . gabapentin 600 mg tablet: Stopped 02/26/2025. ipratropium bromide 42 mcg (0.06 %) nasal spray: 1 spray once a day . methocarbamol 500 mg tablet: Stopped 02/26/2025. montelukast 10 mg tablet: 1 tablet once a day . pantoprazole 40 mg tablet,delayed release: 1 tablet once a day . prazosin 2 mg capsule: 1 capsule once a day . RED YEAST RICE CAP: 1 capsule once a day . rosuvastatin 40 mg tablet: 1 tablet once a day . trazodone 50 mg tablet: 1 tablet every night at bedtime . VITAMIN D3: Stopped 02/26/2025. Allergies: bandaids tramadol 2 of 14 Narrative SOCIAL HISTORY No alcohol use or drug use. ADDITIONAL NOTES The nursing notes have been reviewed. PHYSICAL EXAM Vital Signs: Have been reviewed. Appearance: Alert. No acute distress. ENT: Pharynx normal. Neck: Normal inspection. Neck supple. CVS: Normal heart rate and rhythm. Heart sounds normal. Pulses normal. Respiratory: No respiratory distress. Breath sounds normal. Abdomen: Soft and nontender. Skin: Skin warm and dry. Normal skin color. Extremities: No lower extremity edema. LABS, X-RAYS, AND EKG Laboratory Tests: C DIFF COMPLETE Final SYLWIA: 03/01/2025 13:10:00 EDT MsgRcvd: 03/01/2025 14:03 EDT Lab Test Result Reference Status Received Comments 0{ C-DIFF TOXIN C DIFF 03/01/2025 _NEGATIVE__ Final COMPLETE 14:03 EDT (NRL: NEGATIVE ) 03/01/25.1402.JLN. 03/01/2025 C-DIFF AG NEGATIVE NRL: NEGATIVE Final 14:03 EDT 3 of 14 Narrative Lab Test Result Reference Status Received Comments INTERNAL NEG 03/01/2025 PASS Final QC 14:03 EDT INTERNAL POS 03/01/2025 PASS Final QC 14:03 EDT INTERPRETATION: POSITIVE Ag,POSITIVE Tox = C. Diff is present producing toxins POSITIVE Ag,NEGATIVE Tox = C. Diff is present NEGATICE EXTERNAL QC 03/01/2025 Ag,NEGATICE Tox YES Final DONE? 14:03 EDT = C. Diff is not present A low percentage of specimens may test negative for antigen but positive for toxin. A fresh specimen should be resumbitted for retesting. CBC + DIFF Final SYLWIA: 03/01/2025 13:10:00 EDT MsgRcvd: 03/01/2025 13:36 EDT Lab Test Result Reference Status Received Comments 03/01/2025 13:36 CBC-COMPLETE CBC + DIFF Final EDT BLOOD COUNT 4 of 14 Narrative Lab Test Result Reference Status Received Comments 03/01/2025 13:36 WBC 9.6 x 10/UL 4.5 - 10.8 Final EDT 03/01/2025 13:36 RBC 4.89 x 10/UL 4.10 - 5.30 Final EDT 03/01/2025 13:36 HEMOGLOBIN 15.0 g/dl 12.0 - 16.0 Final EDT 03/01/2025 13:36 HEMATOCRIT 42.6 % 34.0 - 46.0 Final EDT 03/01/2025 13:36 MCV 87 fl 80 - 99 Final EDT 03/01/2025 13:36 MCH 31 pg 27 - 33 Final EDT 03/01/2025 13:36 MCHC 35 X10 3 32 - 36 Final EDT 03/01/2025 13:36 RDW/CV 14.0 % 12.0 - 15.6 Final EDT 03/01/2025 13:36 PLATELET 324 x10/UL 150 - 450 Final EDT 03/01/2025 13:36 AUTOMATED MPV 8.1 fl 6.6 - 10.5 Final EDT DIFFERENTIAL 03/01/2025 13:36 NEUT % 72.1 % 46.0 - 76.0 Final EDT 19.6 % 03/01/2025 13:36 LYMPH % 20.0 - 45.0 Final Below low (more content not included)... Normal [facility] ED SUPER BILLon 03-06-2025 ED SUPER BILL [facility] [address] [place] [address] [phone] 03/01/2025 Patient: FRANTZ SOLORZANO Sex: Female : 1985 Age: 39y Item Facility Professional Category Description Code Code Quantity Fee Total Drugs Normal Saline 039907 1 $0.00 $0.00 1000cc (791239) Nurse/E/M EMERGENCY 745788 1 $0.00 $0.00 DEPARTMENT VISIT HIGH/URGENT SEVERITY (74705-73) Nurse/IV/IM/Infusion s Hydration 656932 1 $0.00 $0.00 additional hour (60966) Nurse/IV/IM/Infusion s IVP initial 434305 1 $0.00 $0.00 (43769) Grand Total $0.00 Providers Marvin Weiss D.O. 1 of 2 [facility] Chief Complaint DIARRHEA. Principal Diagnosis Gastroenteritis. ICD-10 Codes K52.9: Noninfective gastroenteritis and colitis, unspecified 2 of 2 [facility] ED VISIT SUMMARYon ED VISIT SUMMARY Visit Overview Visit Overview [facility] [address] [place] [address] [phone] 03/01/2025 Patient: FRANTZ SLOORZANO Sex: Female : 1985 Age: 39y 03/06/2025 08:41 PM EDT ED Arrival:12:55 03/01/2025 EDT Status: Recent Travel:no Language:eng Adv Directive:No Isolation Status: Ethnicity:N Fall Risk:no risk Infectious Disease Exposure:no Measurements:5'1 / 154.9 Self-Harm Status:risk Sepsis Screen:negative cm 235.0 lb / 106.6 kg Chief Complaint:DIARRHEA, NAUSEA, (4 days ago), (dizziness, abd pain ), and (pepto) ALLERGIES bandaids tramadol HOME MEDICATIONS Allergy Relief (cetirizine) 10 mg tablet: 1 tablet once a day . buspirone 5 mg tablet: 1 tablet once a day . cetirizine 10 mg tablet: Stopped 02/26/2025. fluoxetine 20 mg capsule: 3 capsule once a day . fluticasone propionate 50 mcg/actuation nasal spray,suspension: 1 spray once a day . Visit Overview gabapentin 600 mg tablet: Stopped 02/26/2025. ipratropium bromide 42 mcg (0.06 %) nasal spray: 1 spray once a day . methocarbamol 500 mg tablet: Stopped 02/26/2025. montelukast 10 mg tablet: 1 tablet once a day . pantoprazole 40 mg tablet,delayed release: 1 tablet once a day . prazosin 2 mg capsule: 1 capsule once a day . RED YEAST RICE CAP: 1 capsule once a day . rosuvastatin 40 mg tablet: 1 tablet once a day . trazodone 50 mg tablet: 1 tablet every night at bedtime . VITAMIN D3: Stopped 02/26/2025. PAST MEDICAL HISTORY / PROBLEMS Bipolar Disorder Depression Hypercholesterolemia LNMP: Last normal menstrual period now PTSD Schizophrenia Seasonal Allergies PAST SURGICAL HISTORY Cholecystectomy Dental Surgery Lithotripsy Tubal Ligation SOCIAL HISTORY Smoking status: Yes Alcohol use: Yes Drug use: No ED COURSE MEDICATIONS GIVEN IN EMERGENCY DEPARTMENT Visit Overview 13:21 03/01/25 IV NS 0.9 % 1000 mL 999 mL/hr 13:22 03/01/25 Zofran IVP 4 mg IV SITE INFORMATION INTAKE OUTPUT REASSESMENT (most recent) 13:01 03/01/25. Ambulatory to room. GENERAL / NEURO / PSYCH: Alert. Oriented X 4. Appears in no acute distress. HEENT: Mucous membranes are pink. RESPIRATORY: Respirations not labored. Breath sounds within normal limits. CVS: Capillary refill less than 2 seconds. GI / : The patient has had nausea and diarrhea. Abdominal tenderness. SKIN: Skin is warm and dry. VITAL SIGNS First Vitals Last Vitals Temp 12:58 03/01/25 98.1 F Temp 15:19 03/01/25 BP 12:58 03/01/25 120/73 BP 15:19 03/01/25 115/79 HR 12:58 03/01/25 86 HR 15:19 03/01/25 74 RR 12:58 03/01/25 16 RR 15:19 03/01/25 O2 Sat 12:58 03/01/25 95% O2 Sat 15:19 03/01/25 Pain 12:58 03/01/25 7 Pain 15:19 03/01/25 ETCO2 12:58 03/01/25 ETCO2 15:19 03/01/25 GCS 12:58 03/01/25 GCS 15:19 03/01/25 RTS 12:58 03/01/25 RTS 15:19 03/01/25 PROCEDURES NURSING INTERVENTIONS LABS / STUDIES LABS / STUDIES ORDERED C Diff Complete CBC w Diff CMP Lipase Stool Gastrointestinal Panel by PCR [MAYRA] 3 of 4 Visit Overview Urinalysis LABS / STUDIES PENDING IMPORT STOOL GI PANEL BY PCR [AUL] CLINICAL IMPRESSION GASTROENTERITIS 4 of 4 Normal [facility] ED VITALS FLOW SHEETon 03-06 ED VITALS FLOW SHEET Vitals Vital Sign Flow Sheet [address] [address] [id number] 03/01/2025 Patient: FRANTZ SOLORZANO Sex: Female : 1985 Age: 39y Measurements Wt: 106.6 kg, Ht/Dc: 61.0 in, BMI: 44.40 Measured Time BP MAP HR RR O2Sat ETCO2 Temp Pain GCS RTS 15:19 03/01/2025 115/79 87 74 15:19 03/01/2025 76 96% 15:15 03/01/2025 115/79 91 73 16 97% 14:07 03/01/2025 117/75 91 65 14:04 03/01/2025 69 94% 13:59 03/01/2025 70 94% 13:54 03/01/2025 72 94% 13:52 03/01/2025 117/77 91 67 13:49 03/01/2025 119/69 86 87 16 97% 13:49 03/01/2025 71 93% 12:58 03/01/2025 120/73 89 86 16 95% 98.1 F 7 1 of 1 Normal [facility] STGIPCRon 03-02-2025 Adenovirus F 40/41 Not detected Normal Not Detected [facility] Comment on above: Performed By: #### S TGIPCR #### [place] [address] Astrovirus Not detected Normal Not Detected [facility] Comment on above: Performed By: #### S TGIPCR #### [place] [address] Campy (jejuni/coli/ups) Not detected Normal Not Detected [facility] Comment on above: Performed By: #### S TGIPCR #### [place] [address] Cryptosporidium Not detected Normal Not Detected [facility] Comment on above: Performed By: #### S TGIPCR #### [place] [address] Cyclospora Not detected Normal Not Detected [facility] Comment on above: Performed By: #### S TGIPCR #### [place] [address] E. coli (ETEC) Not detected Normal Not Detected [facility] Comment on above: Performed By: #### S TGIPCR #### [place] [address] E. coli O157 Not Applicable Normal Not Detected [facility] Comment on above: Performed By: #### S TGIPCR #### [place] [address] Entamoeba histolytica Not detected Normal Not Detected [facility] Comment on above: Performed By: #### S TGIPCR #### [place] [address] Enteroaggregative E. coli (EAEC) Not detected Normal Not Detected [facility] Comment on above: Performed By: #### S TGIPCR #### [facility] [address] [place] [address] Enteropathogenic E. coli (EPEC) Detected Abnormal Not Detected [facility] Comment on above: Performed By: #### S TGIPCR #### [facility] [address] [place] [address] Giardia lamblia Not detected Normal Not Detected [facility] Comment on above: Performed By: #### S TGIPCR #### [place] [address] Norovirus GI/GII Not detected Normal Not Detected [facility] Comment on above: Performed By: #### S TGIPCR #### [place] [address] Plesiomonas shigelloides Not detected Normal Not Detected [facility] Comment on above: Performed By: #### S TGIPCR #### [place] [address] Rotavirus A Not detected Normal Not Detected [facility] Comment on above: Performed By: #### S TGIPCR #### [place] [address] Salmonella species, stool Not detected Normal Not Detected [facility] Comment on above: Performed By: #### S TGIPCR #### [place] [address] Sapovirus I,II,IV,V Not detected Normal Not Detected [facility] Comment on above: Performed By: #### S TGIPCR #### [place] [address] Shig Tox E. coli (STEC) Not detected Normal Not Detected [facility] Comment on above: Performed By: #### S TGIPCR #### [place] [address] Shigella/Enteroinvasi ve E. coli (EIEC) Not detected Normal Not Detected [facility] Comment on above: Performed By: #### S TGIPCR #### [address] [address] Stool GI Comment See Comment Normal [facility] Comment on above: Result Comment: Viru s, bacteria, and parasite nucleic acid may persist in vivo independently of organism viability. Negative Film Array GI panel results in the setting of clinical illness compatible with gastroenteritis may be due to infection by pathogens that are not detected by this test. False negatives may occur due to genetic variability in the region targeted by the primers. Performed By: #### S TGIPCR #### [place] [address] Vibrio cholerae Not detected Normal Not Detected [facility] Comment on above: Performed By: #### S TGIPCR #### [place] [address] Vibrio par/vul/chol Not detected Normal Not Detected [facility] Comment on above: Performed By: #### S TGIPCR #### [place] [address] Yersinia enterocolitica Not detected Normal Not Detected [facility] Comment on above: Performed By: #### S TGIPCR #### [place] [address] C DIFF COMPLETEon 03-01-2025 C DIFF COMPLETE C DIFF COMPLETE 0{ C-DIFF TOXIN _NEGATIVE__ (NRL: NEGATIVE ) 03/01/25.1402.JLN. C-DIFF AG NEGATIVE INTERNAL NEG QC PASS INTERNAL POS QC PASS EXTERNAL QC DONE? YES INTERPRETATION: POSITIVE Ag,POSITIVE Tox = C. Diff is present & producing toxins POSITIVE Ag,NEGATIVE Tox = C. Diff is present NEGATICE Ag,NEGATICE Tox = C. Diff is not present A low percentage of specimens may test negative for antigen but positive for toxin. A fresh specimen should be resumbitted for retesting. Normal [facility] Comment on above: Performed By: #### 2 [id number] ####[facility],[address] [place] [address] CBC + DIFFon 03-01-2025 Baso # 0.05 x10EE3/UL Normal 0.00 - 0.10 [facility] Comment on above: Performed By: #### 2 14245 #### [facility],[address] [place] [address] 30048 Basophils/100 WBC (Bld) 0.5 % Normal 0.0 - 2.0 [facility] Comment on above: Performed By: #### 2 73316 #### [facility],[address] [place], [place] [phone] CBC + DIFF Normal [facility] Comment on above: Result Comment: CBC- COMPLETE BLOOD COUNT Performed By: #### 2 53945 #### [facility],[address] [place] [address]60[address] EO # 0.09 x10EE3/UL Normal 0.00 - 0.50 [facility] Comment on above: Performed By: #### 2 56103 #### [facility],[address] [place] [address]390 Eosinophils/100 WBC (Bld) 1.0 % Normal 0.0 - 7.0 [facility] Comment on above: Performed By: #### 2 75965 #### [facility],[address] [place], [place] [phone] Erythrocyte distribution width (RBC) [Ratio] 14.0 % Normal 12.0 - 15.6 [facility] Comment on above: Performed By: #### 2 49820 #### [facility],[address] [place], [place] [phone] Hematocrit (Bld) [Volume fraction] 42.6 % Normal 34.0 - 46.0 [facility] Comment on above: Performed By: #### 2 71351 #### [facility],[address] [place] [address]778 Hemoglobin (Bld) [Mass/Vol] 15.0 g/dL Normal 12.0 - 16.0 [facility] Comment on above: Performed By: #### 2 49652 #### [facility],[address] [place] [address] 19917 Lymph # 1.89 x10EE3/UL Normal 0.80 - 2.80 [facility] Comment on above: Performed By: #### 2 51655 #### [facility],[address] [place] [address] 69184 Lymphocytes/100 WBC (Bld) 19.6 % Low 20.0 - 45.0 [facility] Comment on above: Performed By: #### 2 25889 #### [facility],[address] [place] [address] MANUAL DIFF N/A Normal [facility] Comment on above: Performed By: #### 2 42719 #### [facility],[address] [place], [place] [phone] MCH (RBC) [Entitic mass] 31 pg Normal 27 - 33 [facility] Comment on above: Performed By: #### 2 13864 #### [facility],[address] [place] [address] MCHC 35 X10 3 Normal 32 - 36 [facility] Comment on above: Performed By: #### 2 18124 #### [facility],[address] [place] [address] 38681 MCV (RBC) [Entitic vol] 87 fL Normal 80 - 99 [facility] Comment on above: Performed By: #### 2 89188 #### [facility],[address] [place] [address] [place] # 0.66 x10EE3/UL Normal 0.20 - 1.00 [facility] Comment on above: Performed By: #### 2 53137 #### [facility],[address] [place] [address] 13069 MONOS % 6.9 % Normal 0.0 - 10.0 [facility] Comment on above: Performed By: #### 2 83281 #### [facility],[address] [place] [address] 26526 Morphology Mike (Bld) [Interp] N/A Normal [facility] Comment on above: Performed By: #### 2 91804 #### [facility],[address] [place] [address] 20433 Neut # 6.94 x10EE3/UL Normal 1.50 - 7.10 [facility] Comment on above: Performed By: #### 2 22978 #### [facility],[address] [place] [address] 33979 Neutrophils/100 WBC (Bld) 72.1 % Normal 46.0 - 76.0 [facility] Comment on above: Performed By: #### 2 84690 #### [facility],[address] [place] [address] 40834 PLATELET 324 x10EE3/UL Normal 150 - 450 [facility] Comment on above: Performed By: #### 2 98071 #### [facility],[address] [place] [address] 88782 Platelet mean volume (Bld) [Entitic vol] 8.1 fL Normal 6.6 - 10.5 [facility] Comment on above: Result Comment: AUTO MATED DIFFERENTIAL Performed By: #### 2 03691 #### [facility],[address] [place] [address] 92986 RBC 4.89 x 10EE6/UL Normal 4.10 - 5.30 [facility] Comment on above: Performed By: #### 2 07647 #### [facility],[address] [place] [address] 44408 WBC 9.6 x 10EE3/UL Normal 4.5 - 10.8 [facility] Comment on above: Performed By: #### 2 48987 #### [facility],[address] [place] [address]7974 CMP with eGFRon 03-01-2025 AGE 39 years Normal [facility] Comment on above: Performed By: #### 2 83842 #### [facility],[address] [place] [address] 35550 Albumin [Mass/Vol] 3.9 g/dL Normal 3.4 - 5.0 [facility] Comment on above: Performed By: #### 2 49197 #### [facility],[address] [place] [address] 33258 Albumin/Globulin [Mass ratio] 0.9 {ratio} Normal 0.9 - 1.6 [facility] Comment on above: Performed By: #### 2 82528 #### [facility],[address] [place] [address] 52104 ALK PHOS 101 U/L Normal 46 - 116 [facility] Comment on above: Performed By: #### 2 41011 #### [facility],[address] [place] [address] 38502 ALT [Catalytic activity/Vol] 43 U/L Normal 16 - 63 [facility] Comment on above: Performed By: #### 2 52273 #### [facility],[address] [place] [address] 02446 Anion gap [Moles/Vol] 16 mmol/L Normal 10 - 20 [facility] Comment on above: Performed By: #### 2 14587 #### [facility],[address] [place] [address] 53881 AST [Catalytic activity/Vol] 18 U/L Normal 13 - 39 [facility] Comment on above: Performed By: #### 2 27511 #### [facility],[address] [place] [address] 61793 B/C RATIO 11 ratio Normal 0 - 30 [facility] Comment on above: Performed By: #### 2 77042 #### [facility],[address] [place] [address] 77035 Bilirubin [Mass/Vol] 0.4 mg/dL Normal 0.2 - 1.0 [facility] Comment on above: Performed By: #### 2 50004 #### [facility],[address] [place] [address] 39687 Calcium [Mass/Vol] 9.1 mg/dL Normal 8.5 - 10.1 [facility] Comment on above: Performed By: #### 2 24551 #### [facility],[address] [place] [address] Chloride [Moles/Vol] 104 mmol/L Normal 98 - 107 [facility] Comment on above: Performed By: #### 2 34209 #### [facility],[address] [place] [address]70 CMP with eGFR Normal [facility] Comment on above: Result Comment: COMP REHENSIVE METABOLIC PANEL Performed By: #### 2 25985 #### [facility],[address] [place] [address] CO2 [Moles/Vol] 21.2 mmol/L Normal 21.0 - 32.[address] [facility] Comment on above: Performed By: #### 2 64516 #### [facility],[address] [place] [address] Creatinine [Mass/Vol] 0.94 mg/dL Normal 0.55 - 1.02 [facility] Comment on above: Performed By: #### 2 46761 #### [facility],[address] [place] [address] GFR/1.73 sq M.predicted among non-blacks MDRD (S/P/Bld) [Vol rate/Area] mL/min/{1.73_m2} Normal 60 - 999 [facility] Comment on above: Performed By: #### 2 76817 #### [facility],[address] [place] [address] Result Comment: ACCO RDING TO THE NATIONAL KIDNEY DISEASE EDUCATION PROGRAM(NKDE), A NORMAL eGFR IS A VALUE GREATER THAN OR EQUAL TO 60 ML/MIN/1.73 SQ METERS. CHRONIC KIDNEY DISEASE: <60mL/MIN/1.73 SQ METERS KIDNEY FAILURE: <15mL/MIN/1.73 SQ METERS THIS TEST SHOULD ONLY BE USED FOR PATIENTS 18 YEARS OF AGE AND OLDER. Globulin (S) [Mass/Vol] 4.4 g/dL High 1.5 - 3.8 [facility] Comment on above: Performed By: #### 2 73523 #### [facility],[address] [place] [address]23 Glucose [Mass/Vol] 104 mg/dL Normal 74 - 106 [facility] Comment on above: Performed By: #### 2 68832 #### [facility],[address] [place], [place] [id number] Potassium [Moles/Vol] 3.5 mmol/L Normal 3.5 - 5.1 [facility] Comment on above: Performed By: #### 2 40121 #### [facility],[address] [place] [address] Protein [Mass/Vol] 8.3 g/dL High 6.4 - 8.2 [facility] Comment on above: Performed By: #### 2 20851 #### [facility],[address] [place], [place] [id number] Sodium [Moles/Vol] 138 mmol/L Normal 136 - 145 [facility] Comment on above: Performed By: #### 2 90285 #### [place] [address] Urea nitrogen [Mass/Vol] 10 mg/dL Normal 7 - 18 [facility] Comment on above: Performed By: #### 2 85270 #### [place] [id number] LIPASEon 03-01-2025 Lipase [Catalytic activity/Vol] 50.0 U/L Normal 15.0 - 78.0 [facility] Comment on above: Result Comment: *PLE ASE NOTE THAT RANGES FOR LIPASE HAVE CHANGED OF 08/27/23 DUE TO AN ASSAY UPDATE BY THE SUPERVISOR [employer].THE NEW ASSAY RANGE IS 6-250 U/L, WITH A REFERENCE RANGE OF 16-77 U/L. Performed By: #### 2 53908 #### [place] [id number] URINALYSISon 03-01-2025 Amorphous NONE Normal [facility] Comment on above: Performed By: #### 2 01459 #### [facility],[address] [place] [address] Bacteria NONE Normal [facility] Comment on above: Performed By: #### 2 24053 #### [facility],[address] [place] [address] 24564 Bilirubin Ql (U) Negative Normal NORMAL: NEGATIVE [facility] Comment on above: Performed By: #### 2 95531 #### [facility],[address] [place] [address]13 Casts NONE Normal [facility] Comment on above: Performed By: #### 2 27831 #### [facility],[address] [place] [address]72 Clarity (U) bloody Normal NORMAL: CLEAR [facility] Comment on above: Performed By: #### 2 79371 #### [facility],[address] [place] [address] Color (U) red Normal NORMAL: YELLOW [facility] Comment on above: Performed By: #### 2 27234 #### [facility],[address] [place] [address] 10503 Crystals LM Nom (Urine sed) NONE Normal [facility] Comment on above: Performed By: #### 2 28792 #### [facility],[address] [place] [address] 36708 Epi Cells NONE Normal [facility] Comment on above: Performed By: #### 2 59009 #### [facility],[address] [place] [address] Glucose Ql (U) NORM Normal NORMAL: NORMAL [facility] Comment on above: Performed By: #### 2 15908 #### [facility],[address] [place] [address] Hemoglobin Ql (U) 250 Abnormal NORMAL: NEGATIVE [facility] Comment on above: Performed By: #### 2 12634 #### [facility],[address] [place] [address] Ketone Negative Normal NORMAL: NEGATIVE [facility] Comment on above: Performed By: #### 2 43111 #### [facility],[address] [place] [address]17 Leukocytes 100 Abnormal NORMAL: NEGATIVE [facility] Comment on above: Performed By: #### 2 84524 #### [facility],[address] [place] [address] Mucous NONE Normal [facility] Comment on above: Performed By: #### 2 48822 #### [facility],[address] [place] [address] Nitrite Ql (U) Negative Normal NORMAL: NEGATIVE [facility] Comment on above: Performed By: #### 2 92814 #### [facility],[address] [place] [address] pH (U) 5 [pH] Normal NORMAL: 5.0-8.0 [facility] Comment on above: Performed By: #### 2 29513 #### [facility],[address] [place] [address] Protein Ql (U) 500 Abnormal NORMAL: NEGATIVE [facility] Comment on above: Performed By: #### 2 44920 #### [facility],[address] [place] [address] Rbc TNTC Normal 0-3/hpf [facility] Comment on above: Result Comment: RBCs ARE OBSCURING OTHER ELEMENTS Performed By: #### 2 74108 #### [facility],[address] [place] [address] Sp [place] 1.025 Normal NORMAL: 1.010-1.030 [facility] Comment on above: Performed By: #### 2 48585 #### [facility],[address] [place] [address] Specimen Type R Normal [facility] Comment on above: Performed By: #### 2 94780 #### [facility],[address] [place] [address] 56293 Urinalysis dipstick W Reflex Microscopic panel (U) SEE BELOW Normal [facility] Comment on above: Result Comment: MICR OSCOPIC Performed By: #### 2 83964 #### [facility],[address] [place] [address]80 Urobilinog NORM Normal NORMAL: NORMAL [facility] Comment on above: Performed By: #### 2 68068 #### [facility],[address] [place] [address]706 Wbc NONE Normal 0-5/hpf [facility] Comment on above: Performed By: #### 2 99430 #### [facility],[address] [place] [address] 87252 Yeast NONE Normal [facility] Comment on above: Performed By: #### 2 31648 #### [facility],[address] [place], [place] [id number] ED MED ADMINISTRATION DETAIL on 02-26-2025 ED MED ADMINISTRATION DETAIL Channel Marketing Program Manager Medication Administration Record [address] [address] [id number] 02/26/2025 Patient: FRANTZ SOLORZANO Sex: Female : 1985 Age: 39y MEASUREMENTS: Wt: 106.6 kg, Ht/Dc: 61.0 in, BMI: 44.40 ALLERGIES: bandaids, tramadol Medication Ordered Medication Administration Date/Time 1 of 1 Normal [facility] ED NURSES CLINICAL NOTEon ED NURSES CLINICAL NOTE Nurse Narrative Nurse Clinical Narrative [address] [address] [id number] 02/26/2025 16:05:00 Patient: FRANTZ SOLORZANO Sex: Female : 1985 Age: 39y Disposition: Left W/O Being Seen Disposition Decision Time: 19:07 02/26/2025 Departure Time: :02/26/2025 TRIAGE Arrived by private vehicle. Historian: (patient). Accompanied by family. Primary physician (None). Triage time: 17:02/26/2025. Acuity: LEVEL 3. Chief Complaint: ABDOMINAL PAIN and DIARRHEA. Onset. (Wednesday). -- 17:36 02/26/25 EDT Marianne Cardoza R.N. 17:36 02/26/25. BP: 138/78 MAP: 98. HR: 62. RR: 17. O2 saturation: 98% Temperature: 98.6 F. Pain level now 5/10. -- 17:36 02/26/25 EDT Marianne Cardoza R.N. 17:47 02/26/25. SEPSIS SCREEN: NEGATIVE. SIRS criteria negative. No possible sources of infection. -- 17:47 02/26/25 HUET Marianne Cardoza R.N. Measurements: 17:36 02/26/25 Wt: 106.6 kg, Ht/Dc: 61.0 in, BMI: 44.40 -- 17:36 02/26/25 EDT Marianne Cardoza R.N. Medications: VITAMIN D3: Stopped 02/26/2025. -- 17:40 02/26/25 PRIYANKA Cardoza R.N. trazodone 50 mg tablet: 1 tablet every night at bedtime. -- 17:40 02/26/25 HUET Marianne Cardoza R.N. rosuvastatin 40 mg tablet: 1 tablet once a day. -- 17:40 02/26/25 HUET Marianne Cardoza R.N. 1 of 3 Nurse Narrative RED YEAST RICE CAP: 1 capsule once a day. -- 17:40 02/26/25 PRIYANKA Cardoza R.N. prazosin 2 mg capsule: 1 capsule once a day. -- 17:40 02/26/25 PRIYANKA Cardoza R.N. pantoprazole 40 mg tablet,delayed release: 1 tablet once a day. -- 17:40 02/26/25 PRIYANKA Cardoza R.N. montelukast 10 mg tablet: 1 tablet once a day. -- 17:40 02/26/25 PRIYANKA Cardoza R.N. methocarbamol 500 mg tablet: Stopped 02/26/2025. -- 17:40 02/26/25 PRIYANKA Cardoza R.N. ipratropium bromide 42 mcg (0.06 %) nasal spray: 1 spray once a day. -- 17:40 02/26/25 PRIYANKA Cardoza R.N. gabapentin 600 mg tablet: Stopped 02/26/2025. -- 17:40 02/26/25 PRIYANKA Cardoza R.N. fluticasone propionate 50 mcg/actuation nasal spray,suspension: 1 spray once a day. -- 17:40 02/26/25 PRIYANKA Cardoza R.N. fluoxetine 20 mg capsule: 3 capsule once a day. -- 17:40 02/26/25 PRIYANKA Cardoza R.N. cetirizine 10 mg tablet: Stopped 02/26/2025. -- 17:40 02/26/25 PRIYANKA Cardoza R.N. buspirone 5 mg tablet: 1 tablet once a day. -- 17:40 02/26/25 PRIYANKA Cardoza R.N. Allergy Relief (cetirizine) 10 mg tablet: 1 tablet once a day. -- 17:40 02/26/25 PRIYANKA Cardoza R.N. 17:30 02/26/25. Preferred Pharmacy: ([facility]). -- 17:36 02/26/25 PRIYANKA Cardoza R.N. Allergies: tramadol -- 17:33 02/26/25 PRIYANKA Cardoza R.N. bandaids -- 17:33 02/26/25 PRIYANKA Cardoza R.N. Home Medications/Allergy Information Source: patient -- 17:33 02/26/25 PRIYANKA Cardoza R.N. Problems: Seasonal Allergies -- 17:34 02/26/25 PRIYANKA Cardoza R.N. PTSD -- 17:34 02/26/25 PRIYANKA Cardoza R.N. Depression -- 17:34 02/26/25 PRIYANKA Cardoza R.N. Bipolar Disorder -- 17:34 02/26/25 PRIYANKA Cardoza R.N. Hypercholesterolemia -- 17:34 02/26/25 EDT Marianne Cardoza R.N. Surgeries: Cholecystectomy -- 17:34 02/26/25 EDT Marianne Cardoza R.N. Tubal Ligation -- 17:34 02/26/25 EDT Marianne Cardoza R.N. 2 of 3 Nurse Narrative -- 17:34 02/26/25 EDT Marianne Cardoza R.N. Dental Surgery -- 17:34 02/26/25 HUET Marianne Cardoza R.N. Lithotripsy -- 17:35 02/26/25 EDT Marianne Cardoza R.N. History 17:30 02/26/25. PAST MEDICAL HX: Immunizations: up-to-date. LNMP: (1 months ago). Denies current . SOCIAL HX: Light tobacco smoker- less than 1/2 a pack per day. Occasional alcohol use. No drug use. The patient has not traveled outside the [place] Infectious disease exposure: No infectious disease exposure. ABUSE ASSESSMENT: The patient answered yes to the question(s) Do you feel safe in your home? and no to the question(s) Are you afraid to go home?. Abuse denied. No suspicion of abuse. SELF HARM ASSESSMENT: Self harm assessment was performed. The patient answered no to the question(s) Have you recently felt down, depressed, or hopeless? and Do you have thoughts of harming or killing yourself?. FALL RISK ASSESSMENT: Fall risk assessment completed. No risk factors identified. -- 17:36 02/26/25 EDT Marianne Cardoza R.N. Interventions 17:02/26/25. Advanced care plan (Full Code). -- 17:36 02/26/25 EDT Marianne Cardoza R.N. DISPOSITION / DISCHARGE Departure time: 19:07 02/26/2025. The patient left the Emergency Department without being seen by a physician and completion of treatment. The patient stated is leaving due to personal reasons. The patient left the Emergency Department ambulatory and via private vehicle. -- 19:18 02/26/25 EDT Marianne Cardoza R.N. (Electronically signed by Marianne Cardoza R.N. 02/26/25 19:18:54 EDT) Generated by Gilles (more content not included)... [facility] ED ORDER SHEET (CPOE ONLY)on 02-26-2025 ED ORDER SHEET (CPOE ONLY) Order Sheet Order Sheet [address] [address] [id number] 02/26/2025 Patient: FRANTZ SOLORZANO Sex: Female : 1985 Age: 39y MEASUREMENTS: Wt: 106.6 kg, Ht/Dc: 61.0 in, BMI: 44.40 ALLERGIES: bandaids, tramadol MEDICATION/IV/DRIP/F LUID ORDERS Order Description Priority Entered Acknowledged Completed LAB ORDERS Order Description Priority Entered Acknowledged Collected Completed DIAGNOSTIC STUDY ORDERS Order Description Priority Entered Acknowledged Completed STAFF ORDERS Order Description Priority Entered Acknowledged Collected Completed 1 of 1 Normal [facility] ED SUPER BILLon 02-26-[address] [address] [id number] 02/26/2025 Patient: FRANTZ SOLORZANO Sex: Female : 1985 Age: 39y Item Professional Category Description Facility Code Code Quantity Fee Total Grand Total $0.00 1 of 1 Normal [facility] ED VISIT SUMMARYon ED VISIT SUMMARY Visit Overview Visit Overview [address] [address] [id number] 02/26/2025 Patient: FRANTZ SOLORZANO Sex: Female : 1985 Age: 39y 02/26/2025 07:18 PM EDT ED Arrival:16:05 02/26/2025 EDT Status:not Recent Travel:no Language:eng Adv Directive: Isolation Status: Ethnicity:N Fall Risk:no risk Infectious Disease Exposure:no Measurements:5'1 / 154.9 Self-Harm Status:risk Sepsis Screen:negative cm 235.0 lb / 106.6 kg Chief Complaint:ABDOMINAL PAIN, DIARRHEA, (None), and (Wednesday ) ALLERGIES bandaids tramadol HOME MEDICATIONS Allergy Relief (cetirizine) 10 mg tablet: 1 tablet once a day. buspirone 5 mg tablet: 1 tablet once a day. cetirizine 10 mg tablet: Stopped 02/26/2025. fluoxetine 20 mg capsule: 3 capsule once a day. fluticasone propionate 50 mcg/actuation nasal spray,suspension: 1 spray once a day. 1 3 Visit Overview gabapentin 600 mg tablet: Stopped 02/26/2025. ipratropium bromide 42 mcg (0.06 %) nasal spray: 1 spray once a day. methocarbamol 500 mg tablet: Stopped 02/26/2025. montelukast 10 mg tablet: 1 tablet once a day. pantoprazole 40 mg tablet,delayed release: 1 tablet once a day. prazosin 2 mg capsule: 1 capsule once a day. RED YEAST RICE CAP: 1 capsule once a day. rosuvastatin 40 mg tablet: 1 tablet once a day. trazodone 50 mg tablet: 1 tablet every night at bedtime. VITAMIN D3: Stopped 02/26/2025. PAST MEDICAL HISTORY / PROBLEMS Bipolar Disorder Depression Hypercholesterolemia Immunizations: up-to-date LNMP: (1 months ago) PTSD Seasonal Allergies PAST SURGICAL HISTORY Cholecystectomy Dental Surgery Lithotripsy Tubal Ligation SOCIAL HISTORY Smoking status: Yes Alcohol use: Yes Drug use: No ED COURSE MEDICATIONS GIVEN IN EMERGENCY DEPARTMENT 2 of 3 Visit Overview IV SITE INFORMATION INTAKE OUTPUT REASSESMENT (most recent) VITAL SIGNS First Vitals Last Vitals Temp 17:36 02/26/25 98.6 F Temp 17:36 02/26/25 98.6 F BP 17:36 02/26/25 138/78 BP 17:36 02/26/25 138/78 HR 17:36 02/26/25 62 HR 17:36 02/26/25 62 RR 17:36 02/26/25 17 RR 17:36 02/26/25 17 O2 Sat 17:36 02/26/25 98% O2 Sat 17:36 02/26/25 98% Pain 17:36 02/26/25 5 Pain 17:36 02/26/25 5 ETCO2 17:36 02/26/25 ETCO2 17:36 02/26/25 GCS 17:36 02/26/25 GCS 17:36 02/26/25 RTS 17:36 02/26/25 RTS 17:36 02/26/25 PROCEDURES NURSING INTERVENTIONS LABS / STUDIES CLINICAL IMPRESSION 3 of 3 Normal [facility] ED VITALS FLOW SHEETon 02-26 ED VITALS FLOW SHEET Vitals Vital Sign Flow Sheet [facility] [address] [place] [address] [id number] 02/26/2025 Patient: FRANTZ SOLORZANO Sex: Female : 1985 Age: 39y Measurements Wt: 106.6 kg, Ht/Dc: 61.0 in, BMI: 44.40 Measured Time BP MAP HR RR O2Sat ETCO2 Temp Pain GCS RTS 17:36 02/26/2025 138/78 98 62 17 98% 98.6 F 5 1 of 1 Normal [facility] XR ABDOMEN APon 12-30-2024 XR ABDOMEN AP ORIGINAL EXAMINATION: ONE SUPINE XRAY VIEW(S) OF THE ABDOMEN12/29/2024 7:22 am COMPARISON: CT 01/19/2024 HISTORY: ORDERING SYSTEM PROVIDED HISTORY: Reason for Exam: left ureteral stone, FINDINGS: There are multiple tiny calcifications in both kidneys of 1-2 mm. No ureteral calculus is evident.. There are bilateral pelvic tubal ligation devices. Moderate to large amount of stool in the colon. No dilated bowel loops. IMPRESSION: Tiny bilateral intrarenal calculi. Interpreted by: Lucio Houser MD Preliminary Report By: Lucio Houser MD Electronically signed By Lucio Houser MD Dictated Date: 12/30/2024 1:28:07 PM Prelim Date: 12/30/2024 1:29:51 PM Sign Date: 12/30/2024 1:29:51 PM Ordering Provider: VERONICA SALDIVAR [facility] MAIN LABORATORYOrdered By: Viviane Awan on 12-29-2024 Beta HCG ( test) Ql (U) Negative (12/29/24 8:21 AM) [facility] .Auto Diffon 12-22-2024 Basophil, Absolute 0.1 10 3/mcL Normal 0.0-0.3 [facility] Comment on above: Performed By: #### C BC, ANEU, GFR, ADIFF, BMP #### [place] [phone] Basophils/100 WBC (Bld) 0.9 % Normal 0.0-2.5 [facility] Comment on above: Performed By: #### C BC, ANEU, GFR, ADIFF, BMP #### [address] [address] Eosinophil, Absolute 0.2 10 3/mcL Normal 0.0-0.7 [facility] Comment on above: Performed By: #### C BC, ANEU, GFR, ADIFF, BMP #### [address] [address] Eosinophils/100 WBC (Bld) 2.3 % Normal 0.0-6.0 [facility] Comment on above: Performed By: #### C BC, ANEU, GFR, ADIFF, BMP #### [address] [address] Lymphocyte, Absolute 2.5 10 3/mcL Normal 0.9-4.3 [facility] Comment on above: Performed By: #### C BC, ANEU, GFR, ADIFF, BMP #### [address] [address] Lymphocytes/100 WBC (Bld) 28.4 % Normal 20.0-40.0 [facility] Comment on above: Performed By: #### C BC, ANEU, GFR, ADIFF, BMP #### [address] [address] Monocyte, Absolute 0.6 10 3/mcL Normal 0.1-1.4 [facility] Comment on above: Performed By: #### C BC, ANEU, GFR, ADIFF, BMP #### [address] [address] Monocytes/100 WBC (Bld) 7.1 % Normal 2.0-13.0 [facility] Comment on above: Performed By: #### C BC, ANEU, GFR, ADIFF, BMP #### [address] [address] Neutrophils/100 WBC (Bld) 61.3 % Normal 50.0-75.0 [facility] Comment on above: Performed By: #### C BC, ANEU, GFR, ADIFF, BMP #### [address] [address] .GFRon 12-22-2024 Estimated Glomerular Filtration Rate 72 ml/min/1.73sqm Normal [facility] Comment on above: Result Comment: Stages of Chronic Kidney Disease (CKD) Stage Description eGFR(ml/min/1.73 sq.m.) CKD 1 Normal kidney function or >=90 normal kindney function with possible kidney damage (ex. Proteinuria) CKD 2 Kidney damage with mild loss 60-89 of kidney function CKD 3a Mild to moderate loss of kidney 45-59 function CKD 3b Moderate to severe loss of 30-44 of kindey function CKD 4 Severe loss of kidney function 15-29 CKD 5 Kidney failure <15 Note: (go live 2024) the eGFR calculation was updated to the 2020 CKD-EPI creatinine equation without a race factor to calculate the eGFR results. Performed By: #### C BC, ANEU, GFR, ADIFF, BMP #### [place] [address] .NEUABSon 12-22-2024 Neutrophil, Absolute 5.4 10 3/mcL Normal 2.3-8.1 [facility] Comment on above: Performed By: #### C BC, ANEU, GFR, ADIFF, BMP #### [address] [address] BMPon 12-22-2024 BUN/Creatinine Ratio 11.8 ratio Normal 10.0-22.0 [facility] Comment on above: Performed By: #### C BC, ANEU, GFR, ADIFF, BMP #### [address] [address] Calcium [Mass/Vol] 9.5 mg/dL Normal 8.7-10.4 [facility] Comment on above: Performed By: #### C BC, ANEU, GFR, ADIFF, BMP #### [address] [address] Chloride [Moles/Vol] 108 mmol/L Normal 98-110 [facility] Comment on above: Performed By: #### C BC, ANEU, GFR, ADIFF, BMP #### [address] [address] CO2 [Moles/Vol] 22 mmol/L Normal 22-32 [facility] Comment on above: Performed By: #### C BC, ANEU, GFR, ADIFF, BMP #### [address] [address] Creatinine [Mass/Vol] 1.02 mg/dL Normal 0.50-1.20 [facility] Comment on above: Result Comment: Test ing performed on Elco analyzer using enzymatic creatinine methodology. Performed By: #### C BC, ANEU, GFR, ADIFF, BMP #### [address] [address] Electrolyte Balance 11.0 mEq/L Normal 4.0-15.0 [facility] Comment on above: Performed By: #### C BC, ANEU, GFR, ADIFF, BMP #### [address] [address] Glucose [Mass/Vol] 106 mg/dL Normal 70-110 [facility] Comment on above: Performed By: #### C BC, ANEU, GFR, ADIFF, BMP #### [address] [address] Potassium [Moles/Vol] 4.1 mmol/L Normal 3.5-5.0 [facility] Comment on above: Performed By: #### C BC, ANEU, GFR, ADIFF, BMP #### [address] [address] Sodium [Moles/Vol] 141 mmol/L Normal 136-145 [facility] Comment on above: Performed By: #### C BC, ANEU, GFR, ADIFF, BMP #### [address] [address] Urea nitrogen [Mass/Vol] 12.0 mg/dL Normal 8.0-22.0 [facility] Comment on above: Performed By: #### C BC, ANEU, GFR, ADIFF, BMP #### [address] [address] CBCon 12-22-2024 Erythrocyte distribution width (RBC) [Ratio] 14.0 % Normal 11.5-15.5 [facility] Comment on above: Performed By: #### C BC, ANEU, GFR, ADIFF, BMP #### [place] [address] Hematocrit (Bld) [Volume fraction] 39.4 % Normal 34.0-46.0 [facility] Comment on above: Performed By: #### C BC, ANEU, GFR, ADIFF, BMP #### [place] [address] Hgb 13.5 G/dL Normal 12.0-16.0 [facility] Comment on above: Performed By: #### C BC, ANEU, GFR, ADIFF, BMP #### [place] [address] MCH (RBC) [Entitic mass] 29.9 pg Normal 27.0-33.0 [facility] Comment on above: Performed By: #### C BC, ANEU, GFR, ADIFF, BMP #### [place] [address] MCHC 34.1 G/dL Normal 32.0-36.0 [facility] Comment on above: Performed By: #### C BC, ANEU, GFR, ADIFF, BMP #### [place] [address] MCV (RBC) [Entitic vol] 87.6 fL Normal 80.0-99.0 [facility] Comment on above: Performed By: #### C BC, ANEU, GFR, ADIFF, BMP #### [place] [address] Platelet 275 10 3/mcL Normal 150-450 [facility] Comment on above: Performed By: #### C BC, ANEU, GFR, ADIFF, BMP #### [place] [address] Platelet mean volume (Bld) [Entitic vol] 8.0 fL Normal 6.6-10.5 [facility] Comment on above: Performed By: #### C BC, ANEU, GFR, ADIFF, BMP #### [place] [id number] RBC 4.50 10 6/mcL Normal 4.10-5.30 [facility] Comment on above: Performed By: #### C BC, ANEU, GFR, ADIFF, BMP #### [facility] [address] [place] [address] WBC 8.9 10 3/mcL Normal 4.5-10.8 [facility] Comment on above: Performed By: #### C BC, ANEU, GFR, ADIFF, BMP #### [facility] [address] [place] [address] LABORATORYOrdered By: SYSTEM SYSTEM on 12-22-2024 Basophils (Bld) [#/Vol] 0.1 103/mcL Normal 0.0 - 0.3 10^3/mcL Workflow SS Basophils/100 WBC (Bld) 0.9 % Normal 0.0 - 2.5 % AH Workflow SS Calcium [Mass/Vol] 9.5 mg/dL Normal 8.7 - 10. 4 mg/dL ADM SS Chloride [Moles/Vol] 108 mmol/L Normal 98 - 11 0 mEq/L ADM SS CO2 [Moles/Vol] 22 mmol/L Normal 22 - 32 mEq/L ADM SS Creatinine [Mass/Vol] 1.02 mg/dL Normal 0.50 - 1.20 mg/dL ADM SS Comment on above: Interpretive Data: T esting performed on Elco analyzer using enzymatic creatinine methodology. Electrolyte Balance 11.0 mEq/L Normal 4.0 - 15 .0 mEq/L ADM SS Eosinophils (Bld) [#/Vol] 0.2 103/mcL Normal 0.0 - 0.7 10^3/mcL Workflow SS Eosinophils/100 WBC (Bld) 2.3 % Normal 0.0 - 6.0 % AH Workflow SS Erythrocyte distribution width (RBC) [Ratio] 14.0 % Normal 11.5 - 15.5 % AH Workflow SS Estimated Glomerular Filtration Rate 72 ml/min/1.73sqm Invalid Interpretation Code Chemistry S Comment on above: Interpretive Data: Stages of Chronic Kidney Disease (CKD) Stage Description eGFR(ml/min/1.73 sq.m.) CKD 1 Normal kidney function or >=90 normal kindney function with possible kidney damage (ex. Proteinuria) CKD 2 Kidney damage with mild loss 60-89 of kidney function CKD 3a Mild to moderate loss of kidney 45-59 function CKD 3b Moderate to severe loss of 30-44 of kindey function CKD 4 Severe loss of kidney function 15-29 CKD 5 Kidney failure <15 Note: (go live 2024) the eGFR calculation was updated to the 2020 CKD-EPI creatinine equation without a race factor to calculate the eGFR results. Glucose [Mass/Vol] 106 mg/dL Normal 70 - 110 mg/dL AH ADM SS Hematocrit (Bld) [Volume fraction] 39.4 % Normal 34.0 - 46.0 % AH Workflow SS Hemoglobin (Bld) [Mass/Vol] 13.5 G/dL Normal 12.0 - 16.0 G/dL AH Workflow SS Lymphocytes (Bld) [#/Vol] 2.5 103/mcL Normal 0.9 - 4.3 10^3/mcL AH Workflow SS Lymphocytes/100 WBC (Bld) 28.4 % Normal 20.0 - 40.0 % AH Workflow SS MCH (RBC) [Entitic mass] 29.9 pg Normal 27.0 - 33.0 pg AH Workflow SS MCHC 34.1 G/dL Normal 32.0 - 36.0 G/dL AH Workflow SS MCV (RBC) [Entitic vol] 87.6 fL Normal 80.0 - 99.0 fL AH Workflow SS Monocytes (Bld) [#/Vol] 0.6 103/mcL Normal 0.1 - 1.4 10^3/mcL AH Workflow SS Monocytes/100 WBC (Bld) 7.1 % Normal 2.0 - 13.0 % AH Workflow SS Neutrophils (Bld) [#/Vol] 5.4 103/mcL Normal 2.3 - 8.1 10^3/mcL AH Workflow SS Neutrophils/100 WBC (Bld) 61.3 % Normal 50.0 - 75.0 % AH Workflow SS Platelet mean volume (Bld) [Entitic vol] 8.0 fL Normal 6.6 - 10.5 fL AH Workflow SS Platelets (Bld) [#/Vol] 275 103/mcL Normal 150 - 450 10^3/mcL AH Workflow SS Potassium [Moles/Vol] 4.1 mmol/L Normal 3.5 - 5.0 mEq/L AH ADM SS RBC (Bld) [#/Vol] 4.50 106/mcL Normal 4.10 - 5.3 0 10^6/mcL AH Workflow SS Sodium [Moles/Vol] 141 mmol/L Normal 136 - 145 mEq/L AH ADM SS Urea nitrogen [Mass/Vol] 12.0 mg/dL Normal 8.0 - 22.0 mg/dL AH ADM SS Urea nitrogen/Creatinine [Mass ratio] 11.8 ratio Normal 10.0 - 22.0 ratio AH ADM SS WBC (Bld) [#/Vol] 8.9 103/mcL Normal 4.5 - 10.8 10^3/mcL AH Workflow SS ED MED ADMINISTRATION DETAIL on 12-11-2024 ED MED ADMINISTRATION DETAIL Channel Marketing Program Manager Medication Administration Record [place] [address] [place] [address] [phone] 12/10/2024 Patient: FRANTZ SOLORZANO Sex: Female : 1985 Age: 39y MEASUREMENTS: Wt: 110.7 kg, Ht/Dc: 61.0 in, BMI: 46.10 ALLERGIES: tramadol Medication Ordered Medication Administration Date/Time IV NS 0.9 % 1000 19:12/10 IV NS 0.9 % 1000 mL started in bag#1 1000 mL at Started mL at 999 mL/hr 999 mL/hr via Site# 1. Allergies verified and confirmed 5 rights. IV 19:15 12/10/2024 (NOW x1) patency established. IV site checked: no pain, redness, or swelling. Helen Lao R.N. IV flushed thoroughly pre-medication administration. Information Stopped reviewed with patient including reason for taking this medication, 20:12/10/2024 signs of allergic reaction and precautions. Verbalizes Helen Lao R.N. understanding. - 19:16 Helen Lao R.N. Scanned 20:12/10 Medication Discontinued: bag #1 completed. Total amount infused: 1000 mL. IV patency established. IV site checked: no pain, redness, or swelling. IV flushed thoroughly post-medication administration. - 21:21 Helen Lao R.N. KetorOLAC 19:16 12/10 KetorOLAC (Toradol) IVP 30 mg given via Site# 1. Given (Toradol) IVP 30 mg Allergies verified and confirmed 5 rights. IV patency established. IV 19:16 12/10/2024 (NOW x1) site checked: no pain, redness, or swelling. IV flushed thoroughly Helen Lao R.N. pre-medication administration. Information reviewed with patient Scanned including reason for taking this medication, signs of allergic reaction and precautions. Verbalizes understanding. (pain 9/10). - 19:16 Helen Lao R.N. 1 of 3 Channel Marketing Program Manager Medication Ordered Medication Administration Date/Time Zofran IVP 4 mg 19:16 12/10 Zofran IVP 4 mg given via Site# 1. Allergies verified Given (NOW x1) and confirmed 5 rights. IV patency established. IV site checked: no 19:16 12/10/2024 pain, redness, or swelling. IV flushed thoroughly pre-medication Bernie Tirado.Jarek. administration. Information reviewed including reason for taking this Scanned medication, signs of allergic reaction and precautions. Verbalizes understanding. - 19:17 Helen Lao R.N. HYDROmorphone 19:34 12/10 HYDROmorphone (Dilaudid) IVP 0.5 mg given via Given (Dilaudid) IVP 0.5 Site# 1. Allergies verified and confirmed 5 rights. IV patency 19:34 12/10/2024 mg (NOW x1, HIGH established. IV site checked: no pain, redness, or swelling. IV Bernie Tirado.Jarek. ALERT flushed thoroughly pre-medication administration. Information Scanned MEDICATION) reviewed with patient including reason for taking this medication, signs of allergic reaction, precautions and sedative warning. Verbalizes understanding. (left flank pain 9/10). - 19:39 Helen Lao R.N. HYDROmorphone 20:15 12/10 HYDROmorphone (Dilaudid) IVP 0.5 mg given via Given (Dilaudid) IVP 0.5 Site# 1. Allergies verified and confirmed 5 rights. IV patency 20:15 12/10/2024 mg (NOW x1, HIGH established. IV site checked: no pain, redness, or swelling. IV Bernie Tirado.Jarek. ALERT flushed thoroughly pre-medication administration. Information Scanned MEDICATION) reviewed with patient including reason for taking this medication, signs of allergic reaction, precautions and sedative warning. Verbalizes understanding. (left flank pain 9/10). - 20:17 Helen Lao R.N. Keflex PO 1 g (NOW 21:12/10 Keflex PO 1 g given. Allergies verified and confirmed 5 Given x1) rights. Information reviewed with patient including reason for taking 21:12/10/2024 this medication, signs of allergic reaction and precautions. Helen Lao R.N. Verbalizes understanding. - 21:06 Helen Lao R.N. Scanned OxyCODONE-APAP 21:17 12/10 OxyCODONE-APAP 5-325 (Percocet) PO 2 tab given. Given 5-325 (Percocet) PO Allergies verified and confirmed 5 rights. Information reviewed with 21:12/10/2024 2 tab (NOW x1, patient including reason for taking this medication, signs of allergic Helen Lao R.N. HIGH ALERT reaction and precautions. Verbalizes understanding. (sent home Scanned MEDICATION) with patient per MD order). - 21:17 Helen Lao R.N. 2 of 3 Channel Marketing Program Manager Medication Ordered Medication Administration Date/Time OxyCODONE-APAP 21:18 12/10 OxyCODONE-APAP 5-325 (Percocet) PO 1 tab given. Given 5-325 (Percocet) PO Allergies verified and confirmed 5 rights. Information reviewed with 21:12/10/2024 2 tab (NOW x1, patient including reason for taking this medication, signs of allergic Helen Lao R.N. HIGH ALERT reaction, precautions and sedative warning. Verbalizes Scanned MEDICATION) understanding. (sent medication home with patient per MD order). - 21:21 Helen Lao R.N. Order Comments: 21:11 12/10/2024 (to go kidney stone) Giancarlo Zacarias D.O. 3 of 3 [facility] ED NURSES CLINICAL NOTEon ED NURSES CLINICAL NOTE Nurse Narrative Nurse Clinical [address] [place] [address] [phone] 12/10/2024 18:22:00 Patient: FRANTZ SOLORZANO Sex: Female : 1985 Age: 39y Disposition: Discharge to Home Disposition Decision Time: 21:12/10/2024 Departure Time: 21:12/10/2024 TRIAGE Arrived by private vehicle. Historian: (patient). Accompanied by family. Primary physician (None). Triage time: 18:22 12/10/2024. Acuity: LEVEL 3. Chief Complaint: LEFT-SIDED FLANK PAIN. This started yesterday. ( Lightheaded). -- 18:27 12/10/24 EDT Jeanette Alvarado R.N. 18:28 12/10/24. BP: 155/100 taken on left arm, while lying. MAP: 118. HR: 75. RR: 16. O2 saturation: 96% on room air. Temperature: 98.3 F (oral). Pain level now 9/10. Describes the pain as throbbing. (Left Flank). -- 18:12/10/24 EDT Jeanette Alvarado R.N. 18:12/10/24. SEPSIS SCREEN: NEGATIVE. SIRS criteria negative. -- 18:12/10/24 EDT Jeanette Alvarado R.N. Measurements: 18:12/10/24 Wt: 110.7 kg, Ht/Dc: 61.0 in, BMI: 46.10 -- 18:12/10/24 EDT Jeanette Alvarado R.N. Medications: RED YEAST RICE CAP -- 18:12/10/24 EDT Jeanette Alvarado R.N. VITAMIN D3 -- 18:12/10/24 EDT Jeanette Alvarado R.N. fluoxetine 20 mg capsule -- 18:30 12/10/24 EDT Jeanette Alvarado R.N. 1 of 6 Nurse Narrative prazosin 2 mg capsule -- 18:30 12/10/24 EDT Jeanette Alvarado R.N. rosuvastatin 40 mg tablet -- 18:12/10/24 EDT Jeanette Alvarado R.N. buspirone 5 mg tablet -- 18:12/10/24 EDT Jeanette Alvarado R.N. methocarbamol 500 mg tablet -- 18:30 12/10/24 EDT Jeanette Alvarado R.N. gabapentin 600 mg tablet -- 18:30 12/10/24 EDT Jeanette Alvarado R.N. Allergy Relief (cetirizine) 10 mg tablet -- 18:30 12/10/24 EDT Jeanette Alvarado R.N. cetirizine 10 mg tablet -- 18:30 12/10/24 EDT Jeanette Alvarado R.N. montelukast 10 mg tablet -- 18:30 12/10/24 EDT Jeanette Alvarado R.N. ipratropium bromide 42 mcg (0.06 %) nasal spray -- 18:30 12/10/24 EDT Jeanette Alvarado R.N. fluticasone propionate 50 mcg/actuation nasal spray,suspension -- 18:30 12/10/24 EDT Jeanette Alvarado R.N. trazodone 50 mg tablet -- 18:30 12/10/24 EDT Jeanette Alvarado R.N. pantoprazole 40 mg tablet,delayed release -- 18:30 12/10/24 EDT Jeanette Alvarado R.N. oxycodone-acetaminop hen 5 mg-325 mg tablet -- 18:30 12/10/24 EDT Jeanette Alvarado R.N.Updated through eRx -- 19:45 12/10/24 EDT Giancarlo Zacarias D.O. oxycodone-acetaminop hen 5 mg-325 mg tablet: Stopped 12/10/2024. -- 19:45 12/10/24 EDT Giancarlo Zacarias D.O. Allergies: tramadol -- 18:24 12/10/24 EDT Jeanette Alvarado R.N. Problems: Seasonal Allergies -- 18:24 12/10/24 EDT Jeanette lAvarado R.N. PTSD -- 18:24 12/10/24 EDT Jeanette Alvarado R.N. Depression -- 18:24 12/10/24 EDT Jeanette Alvarado R.N. Bipolar Disorder -- 18:24 12/10/24 EDT Jeanette Alvarado R.N. ADDITIONAL SURGERIES: Cholecystectomy -- 18:25 12/10/24 EDT Jeanette Christiano, R.N. Tubal Ligation -- 18:25 12/10/24 EDT Jeanette Alvarado R.N. -- 18:12/10/24 EDT Jeanette Alvarado R.N. Dental Surgery -- 18:25 12/10/24 EDT Jeanette Alvarado R.N. History 18:22 12/10/24. 2 of 6 Nurse Narrative PAST MEDICAL HX: Immunizations: up-to-date. Denies current . SOCIAL HX: Light tobacco smoker (cigarette)- less than 1/2 a pack per day. Occasional drug use. Recently used drugs days ago. (THC Vape). No alcohol use. The patient has not traveled outside the [place] Infectious disease exposure: No infectious disease exposure. ABUSE ASSESSMENT: The patient answered yes to the question(s) Do you feel safe in your home? and no to the question(s) Are you afraid to go home?. SELF HARM ASSESSMENT: Self harm assessment was performed. The patient answered no to the question(s) Have you recently felt down, depressed, or hopeless? and Do you have thoughts of harming or killing yourself?. FALL RISK ASSESSMENT: Fall risk assessment completed. No risk factors identified. -- 18:12/10/24 EDT Jeanette Alvarado R.N. Interventions 18:22 12/10/24. Advanced care plan discussed with patient. Patient does not have advanced directive. -- 18:27 12/10/24 EDT Jeanette Alvarado R.N. PHYSICAL ASSESSMENT 18:58 12/10/24. Ambulatory to room. ( Pt has a history of kidney stones. She feels like she could be getting one. Pain started yesterday. She denies any urinary symptoms.). GENERAL / NEURO / PSYCH: Alert. Oriented X 4. Appears in no acute distress. RESPIRATORY: Respirations not labored. GI / : Abdomen soft and nontender. No pain with urination, frequency of urination or urgency of urination. SKIN: Skin is warm and dry. -- 19:13 12/10/24 EDT Anahy Lopez R.N. NURSING PROGRESS NOTES 18:40 12/10/24. HR: 72 bpm. O2 saturation: 97%. -- 07:11 12/11/24 EDT Helen Lao R.N. 18:43 12/10/24. BP: 150/93 MAP: 112 mmHg. HR: 73 bpm. -- 07:11 12/11/24 EDT Helen Lao R.N. 18 (more content not included)... [facility] ED ORDER SHEET (CPOE ONLY)on 12-11-2024 ED ORDER SHEET (CPOE ONLY) Order Sheet Order Sheet [place] [id number] [facility] [place] [address] [phone] 12/10/2024 Patient: FRANTZ SOLORZANO Sex: Female : 1985 Age: 39y MEASUREMENTS: Wt: 110.7 kg, Ht/Dc: 61.0 in, BMI: 46.10 ALLERGIES: tramadol MEDICATION/IV/DRIP/F LUID ORDERS Order Description Priority Entered Acknowledged Completed IV NS 0.9 %1000 mL at 999 18:49 12/10/2024 18:55 19:16 mL/hr (NOW x1) Juan Manuel Holguin M.D. 12/10/2024 12/10/2024 Helen Dubois R.N. R.N. KetorOLAC (Toradol) IVP30 mg 18:49 12/10/2024 18:55 19:16 (NOW x1) Juan Manuel Holguin M.D. 12/10/2024 12/10/2024 Helen Dubois R.N. R.N. Reason for ordering with alerts: Clinical consideration given --18:49 12/10/2024 Juan Manuel Holguin M.D. Zofran IVP4 mg (NOW x1) 18:49 12/10/2024 18:55 19:17 Juan Manuel Holguin M.D. 12/10/2024 12/10/2024 Helen Dubois R.N. R.NNita Reason for ordering with alerts: Clinical consideration given --18:49 12/10/2024 Juan Manuel Holguin M.D. HYDROmorphone (Dilaudid) 19:30 12/10/2024 19:39 IVP0.5 mg (NOW x1, HIGH Giancarlo Zacarias, 12/10/2024 ALERT MEDICATION) Charleen Lao, 1 of 3 Order Sheet R.NNita Reason for ordering with alerts: Benefits outweigh risks --19:30 12/10/2024 Giancarlo Zacarias D.O. HYDROmorphone (Dilaudid) 20:09 12/10/2024 20:17 IVP0.5 mg (NOW x1, HIGH Giancarlo Zacarias, 12/10/2024 ALERT MEDICATION) Charleen Lao R.N. Reason for ordering with alerts: Benefits outweigh risks --20:09 12/10/2024 Giancarlo Zacarias D.O. Keflex PO1 g (NOW x1) 21:02 12/10/2024 21:06 Giancarlo Zacarias, 12/10/2024 Charleen Lao R.N. OxyCODONE-APAP 5-325 21:11 12/10/2024 21:17 (Percocet) PO2 tab (NOW x1, Giancarlo Zacarias, 12/10/2024 HIGH ALERT MEDICATION) Charleen Lao R.N. Order Comments: 21:11 12/10/2024: (to go kidney stone) Giancarlo Zacarias D.O. Reason for ordering with alerts: Benefits outweigh risks --21:11 12/10/2024 Giancarlo Zacarias D.O. LAB ORDERS Order Description Priority Entered Acknowledged Collected Completed CBC w Diff Stat Stat 18:49 12/10/2024 18:55 12/10/2024 19:21 12/10/2024 Reece Mcgarry Crystal Brenner, R.N. R.N. CMP Stat Stat 18:49 12/10/2024 18:55 12/10/2024 19:21 12/10/2024 Reece Mcgarry Crystal Brenner, R.N. R.N. Lipase Stat Stat 18:49 12/10/2024 Cancelled: Other Juan Manuel Holguin M.D. 19:16 EDT Giancarlo Zacarias D.O. 2 of 3 Order Sheet Urinalysis Stat Stat 18:49 12/10/2024 18:55 12/10/2024 19:21 12/10/2024 Reece Mcgarry Crystal Brenner, R.N. R.N. CRP Stat Stat 18:49 12/10/2024 Cancelled: Other Juan Manuel Holguin M.D. 19:15 EDT Giancarlo Zacarias D.O. Urinalysis Stat Stat 20:21 12/10/2024 20:24 12/10/2024 21:02 12/10/2024 Sophie Fang D.O. RChucho Urine Culture [CCL] Stat Stat 21:02 12/10/2024 21:02 12/10/2024 21:03 12/10/2024 Helen Fang Crystal Brenner, D.O. R.N. RChucho DIAGNOSTIC STUDY ORDERS Order Description Priority Entered Acknowledged Completed CT KUB (Kidney stone) Stat Stat 18:49 12/10/2024 18:55 19:39 Juan Manuel Holguin M.D. 12/10/2024 12/10/2024 Helen Dubois R.N. RChucho Reason for Study: Flank Pain STAFF ORDERS Order Description Priority Entered Acknowledged Collected Completed [Electronically signed by Juan Manuel Holguin M.D. (12/10/2024 19:09 EDT)] 3 of 3 [facility] ED PHYSICIAN CLINICAL REPORT on 12-11-2024 ED PHYSICIAN CLINICAL REPORT Narrative Physician Clinical Narrative [address] [address] [phone] 12/10/2024 18:22:00 Patient: FRANTZ SOLORZANO Sex: Female : 1985 Age: 39y Measurements Wt: 110.7 kg, Ht/Dc: 61.0 in, BMI: 46.10 Initial Vital Sign Measured Time BP MAP HR RR O2Sat ETCO2 Temp Pain GCS RTS 18:28 12/10/2024 155/100 119 72 Time Seen: 18:32 12/10/2024. Arrived- By private vehicle. Historian- patient. HISTORY OF PRESENT ILLNESS Chief Complaint: ABDOMINAL PAIN and FLANK PAIN. It is described as pain, sharp and migrating and it is described as located in the left abdomen and left lower quadrant and the left flank. This started yesterday and is still present and worsening. The patient has had mild nausea. No loss of appetite, vomiting or diarrhea. (patient states that she has some chronic back pain. 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 Since then her pain has gotten worse. Since yesterday however she has developed more severe left low back and left flank pain that seems to radiate around to her left abdomen. She has had kidney stones in the past and states that it is a bit reminiscent of her previous kidney stones. She is not having any urinary symptoms. She has no fever or chills minimal nausea no vomiting she complains of feeling lightheaded. Has been able to eat and drink without vomiting.). Similar symptoms previously. Patient has had similar symptoms many times. 1 of 17 Narrative REVIEW OF SYSTEMS : No difficulty with urination, pain with urination or urinary frequency. CONSTITUTIONAL: No fever or chills. NEUROLOGICAL: No headache. EYES: No blurred vision. CVS: No chest pain. RESPIRATORY: No difficulty breathing or cough. MUSCULOSKELETAL: No joint pain. The patient has had back pain. SKIN: No skin rash. THROAT: No sore throat. GI: No constipation or black stools. PAST HISTORY See nurses notes. Asthma, depression. Bipolar Disorder Depression PTSD Seasonal Allergies Surgeries: Cholecystectomy Dental Surgery Tubal Ligation Medications: Allergy Relief (cetirizine) 10 mg tablet buspirone 5 mg tablet cetirizine 10 mg tablet fluoxetine 20 mg capsule fluticasone propionate 50 mcg/actuation nasal spray,suspension gabapentin 600 mg tablet ipratropium bromide 42 mcg (0.06 %) nasal spray methocarbamol 500 mg tablet montelukast 10 mg tablet oxycodone-acetaminop hen 5 mg-325 mg tablet pantoprazole 40 mg tablet,delayed release prazosin 2 mg capsule RED YEAST RICE CAP rosuvastatin 40 mg tablet trazodone 50 mg tablet 2 of 17 Narrative VITAMIN D3 Allergies: tramadol SOCIAL HISTORY History of tobacco use. Drug use: marijuana. No alcohol use. ADDITIONAL NOTES The nursing notes have been reviewed. PHYSICAL EXAM Vital Signs: Have been reviewed. Appearance: Alert. Oriented X3. No acute distress. Eyes: Pupils equal, round and reactive to light. Eyes normal inspection. ENT: Nose normal. Pharynx normal. CVS: Normal heart rate and rhythm. Heart sounds normal. Pulses normal. Respiratory: No respiratory distress. Breath sounds normal. Abdomen: Soft. Mild tenderness in the left side of the abdomen and left lower quadrant. No guarding or rebound tenderness. Abnormal bowel sounds: diminished. No organomegaly. No mass. Femoral pulses equal. Obese. Back: Normal inspection. Skin: Skin warm and dry. Normal skin color. No rash. Normal skin turgor. Extremities: Extremities exhibit normal ROM. No lower extremity edema. Neuro: Oriented X 3. No motor deficit. No sensory deficit. PROGRESS AND PROCEDURES MEDICAL DECISION MAKING: MEDICAL COMPLEXITY MODERATE. Pertinent clinical findings include the location of the pain. The presentation was not sudden. There was no shoulder pain, recent trauma, shortness of breath, fever, vomiting or history of comorbidities. The exam revealed no vital signs that were significantly abnormal, unequal pulses, rebound tenderness, mass, McBurney's point tenderness or positive Todd's sign. Serious conditions are unlikely to be a cause for the patient's findings. The differential diagnosis includes, but is not limited to, irritable bowel syndrome, kidney stone and ( musculoskeletal back pain). Ordered tests include a CT of the abdomen, complete blood count, chemistries, a beta-HCG, a serum lipase and urinalysis. Narrative (Electronically signed by Juan Manuel Holguin M.D. 12/10/24 19:09:11 EDT) Generated by [facility] Physician Clinical Narrative [address] [address] [id number] 12/10/2024 18:22:00 Patient: FRANTZ SOLORZANO Sex: Fe (more content not included)... [facility] ED SUPER BILLon 12-11-[address] [facility] BILL [address] [address] [phone] 12/10/2024 Patient: FRANTZ SOLORZANO Sex: Female : 1985 Age: 39y Item Facility Professional Category Description Code Code Quantity Fee Total Drugs Normal Saline 731402 1 $0.00 $0.00 1000cc (567138) Nurse/E/M EMERGENCY [id number] 1 $0.00 $0.00 DEPARTMENT VISIT HIGH/URGENT SEVERITY (27939-78) Nurse/IV/IM/Infusion s Hydration [id number] 2 $0.00 $0.00 additional hour (17645) Nurse/IV/IM/Infusion s IVP additional [id number] 2 $0.00 $0.00 push (22049) Nurse/IV/IM/Infusion s IVP initial [id number] 1 $0.00 $0.00 (95088) Nurse/IV/IM/Infusion s IVP same med [id number] 1 $0.00 $0.00 (31 min apart) (59297) Grand Total $0.00 1 of 2 Superbill Providers Reece Mcgarry D.O. Chief Complaint ABDOMINAL PAIN and FLANK PAIN. Principal Diagnosis Acute nontraumatic pain. Left renal colic in the left ureter with calculus with hydronephrosis. ICD-10 Codes N23: Unspecified renal colic N20.0: Calculus of kidney N13.30: Unspecified hydronephrosis R52: Pain, unspecified 2 of 2 [facility] ED VISIT SUMMARYon ED VISIT SUMMARY Visit Overview Visit Overview [address] [address] [id number] 12/10/2024 Patient: FRANTZ SOLORZANO Sex: Female : 1985 Age: 39y 12/11/2024 07:55 AM EDT ED Arrival:18:22 12/10/2024 EDT Status:not Recent Travel:no Language:eng Adv Directive:No Isolation Status: Ethnicity:N Fall Risk:no risk Infectious Disease Exposure:no Measurements:5'1 / 154.9 Self-Harm Status:risk Sepsis Screen:negative cm 244.0 lb / 110.7 kg Chief Complaint:LEFT-SIDED FLANK PAIN, (Lightheaded), and (None) ALLERGIES tramadol HOME MEDICATIONS Allergy Relief (cetirizine) 10 mg tablet buspirone 5 mg tablet cetirizine 10 mg tablet fluoxetine 20 mg capsule fluticasone propionate 50 mcg/actuation nasal spray,suspension gabapentin 600 mg tablet 1 of 4 Visit Overview ipratropium bromide 42 mcg (0.06 %) nasal spray methocarbamol 500 mg tablet montelukast 10 mg tablet oxycodone-acetaminop hen 5 mg-325 mg tablet: Stopped 12/10/2024. pantoprazole 40 mg tablet,delayed release prazosin 2 mg capsule RED YEAST RICE CAP rosuvastatin 40 mg tablet trazodone 50 mg tablet VITAMIN D3 PAST MEDICAL HISTORY / PROBLEMS Bipolar Disorder Depression Immunizations: up-to-date PTSD Seasonal Allergies See nurses notes PAST SURGICAL HISTORY Cholecystectomy Dental Surgery Tubal Ligation SOCIAL HISTORY Smoking status: Yes Alcohol use: No Drug use: Yes ED COURSE MEDICATIONS GIVEN IN EMERGENCY DEPARTMENT 19:15 12/10/24 IV NS 0.9 % 1000 mL 999 mL/hr 19:16 12/10/24 KetorOLAC (Toradol) IVP 30 mg 2 of 4 Visit Overview 19:16 12/10/24 Zofran IVP 4 mg 19:34 12/10/24 HYDROmorphone (Dilaudid) IVP 0.5 mg 20:15 12/10/24 HYDROmorphone (Dilaudid) IVP 0.5 mg 21:05 12/10/24 Keflex PO 1 g 21:17 12/10/24 OxyCODONE-APAP 5-325 (Percocet) PO 2 tab 21:18 12/10/24 OxyCODONE-APAP 5-325 (Percocet) PO 1 tab IV SITE INFORMATION INTAKE OUTPUT REASSESMENT (most recent) 18:58 12/10/24. Ambulatory to room. ( Pt has a history of kidney stones. She feels like she could be getting one. Pain started yesterday. She denies any urinary symptoms.). GENERAL / NEURO / PSYCH: Alert. Oriented X 4. Appears in no acute distress. RESPIRATORY: Respirations not labored. GI / : Abdomen soft and nontender. No pain with urination, frequency of urination or urgency of urination. SKIN: Skin is warm and dry. VITAL SIGNS First Vitals Last Vitals Temp 18:28 12/10/24 Temp 21:17 12/10/24 98.2 F BP 18:28 12/10/24 155/100 BP 21:17 12/10/24 HR 18:28 12/10/24 72 HR 21:17 12/10/24 RR 18:28 12/10/24 RR 21:17 12/10/24 14 O2 Sat 18:28 12/10/24 O2 Sat 21:17 12/10/24 Pain 18:28 12/10/24 Pain 21:17 12/10/24 6 ETCO2 18:28 12/10/24 ETCO2 21:17 12/10/24 GCS 18:28 12/10/24 GCS 21:17 12/10/24 RTS 18:28 12/10/24 RTS 21:17 12/10/24 PROCEDURES NURSING INTERVENTIONS LABS / STUDIES LABS / STUDIES ORDERED 3 of 4 Visit Overview CBC w Diff CMP CT KUB (Kidney stone) Urinalysis Urinalysis Urine Culture [CCL] CLINICAL IMPRESSION ACUTE NONTRAUMATIC PAIN LEFT RENAL COLIC IN THE LEFT URETER WITH CALCULUS WITH HYDRONEPHROSIS POSSIBLE URINARY TRACT INFECTION 4 of 4 [facility] ED VITALS FLOW SHEETon 12-11 ED VITALS FLOW SHEET Vitals Vital Sign Flow Sheet [address] [address] [id number] 12/10/2024 Patient: FRANTZ SOLORZANO Sex: Female : 1985 Age: 39y Measurements Wt: 110.7 kg, Ht/Dc: 61.0 in, BMI: 46.10 Measured Time BP MAP HR RR O2Sat ETCO2 Temp Pain GCS RTS 21:17 12/10/2024 14 98.2 F 6 21:15 12/10/2024 75 94% 21:14 12/10/2024 107/68 79 74 21:10 12/10/2024 86 94% 21:05 12/10/2024 77 94% 21:00 12/10/2024 80 94% 20:59 12/10/2024 97/64 78 78 20:55 12/10/2024 76 93% 20:50 12/10/2024 77 94% 20:45 12/10/2024 78 95% 20:44 12/10/2024 107/62 72 75 20:40 12/10/2024 78 94% 20:35 12/10/2024 72 95% 20:30 12/10/2024 75 96% 20:29 12/10/2024 110/59 78 72 1 of 3 Vitals Measured Time BP MAP HR RR O2Sat ETCO2 Temp Pain GCS RTS 20:25 12/10/2024 74 97% 20:14 12/10/2024 114/62 92 71 20:10 12/10/2024 67 98% 20:05 12/10/2024 72 99% 20:00 12/10/2024 72 99% 19:59 12/10/2024 118/69 87 70 19:55 12/10/2024 76 99% 19:50 12/10/2024 73 99% 19:45 12/10/2024 72 97% 19:44 12/10/2024 117/67 83 72 19:40 12/10/2024 75 96% 19:35 12/10/2024 85 99% 19:30 12/10/2024 75 98% 19:29 12/10/2024 137/88 106 74 19:25 12/10/2024 72 94% 19:21 12/10/2024 158/87 110 71 19:20 12/10/2024 68 95% 18:50 12/10/2024 73 96% 18:45 12/10/2024 74 96% 18:43 12/10/2024 150/93 112 73 18:40 12/10/2024 72 97% 18:35 12/10/2024 87 99% 18:30 12/10/2024 76 98% 18:28 12/10/2024 155/100 118 75 16 96% RA 98.3 F 9 18:28 12/10/2024 155/100 119 72 2 of 3 Vitals 3 of 3 Normal [facility] Bacteria Ur Culton Bacteria identified Cx Nom (U) ORGANISM ID: 1 10,000 -<50,000 CFU/ml Normal urogenital jonathan Normal [facility] Comment on above: Performed By: #### 6 30-4 #### [facility] CLIA [id number] [address] [place] [address] [place] CBC + DIFFon 12-10-2024 Baso # 0.06 x10EE3/UL Normal 0.00 - 0.10 [facility] Comment on above: Performed By: #### 2 19755 #### [facility],[address] [place] [address] 40093 Basophils/100 WBC (Bld) 0.4 % Normal 0.0 - 2.0 [facility] Comment on above: Performed By: #### 2 85487 #### [facility],[address] [place] [address] 85019 CBC + DIFF Normal [facility] Comment on above: Result Comment: CBC- COMPLETE BLOOD COUNT Performed By: #### 2 24897 #### [facility],[address] [place] [address] 91552 EO # 0.11 x10EE3/UL Normal 0.00 - 0.50 [facility] Comment on above: Performed By: #### 2 79191 #### [facility],[address] [place] [address] 64044 Eosinophils/100 WBC (Bld) 0.8 % Normal 0.0 - 7.0 [facility] Comment on above: Performed By: #### 2 18355 #### [facility],[address] [place] [address] 51808 Erythrocyte distribution width (RBC) [Ratio] 13.7 % Normal 12.0 - 15.6 [facility] Comment on above: Performed By: #### 2 21653 #### [facility],[address] [place] [address] 76104 Hematocrit (Bld) [Volume fraction] 42.1 % Normal 34.0 - 46.0 [facility] Comment on above: Performed By: #### 2 24033 #### [facility],[address] [place] [address] 92638 Hemoglobin (Bld) [Mass/Vol] 14.8 g/dL Normal 12.0 - 16.0 [facility] Comment on above: Performed By: #### 2 53511 #### [facility],[address] [place] [address] Lymph # 3.24 x10EE3/UL High 0.80 - 2.80 [facility] Comment on above: Performed By: #### 2 76997 #### [facility],[address] [place], [place] [id number] Lymphocytes/100 WBC (Bld) 22.6 % Normal 20.0 - 45.0 [facility] Comment on above: Performed By: #### 2 10216 #### [facility],[address] [place] [address] MANUAL DIFF N/A Normal [facility] Comment on above: Performed By: #### 2 09665 #### [facility],[address] [place] [address] MCH (RBC) [Entitic mass] 31 pg Normal 27 - 33 [facility] Comment on above: Performed By: #### 2 80412 #### [facility],[address] [place] [address] MCHC 35 X10 3 Normal 32 - 36 [facility] Comment on above: Performed By: #### 2 10085 #### [facility],[address] [place] [address] 37120 MCV (RBC) [Entitic vol] 88 fL Normal 80 - 99 [facility] Comment on above: Performed By: #### 2 76220 #### [facility],[address] [place] [address] 46435 [place] # 0.83 x10EE3/UL Normal 0.20 - 1.00 [facility] Comment on above: Performed By: #### 2 89417 #### [facility],[address] [place], [place] [id number] MONOS % 5.8 % Normal 0.0 - 10.0 [facility] Comment on above: Performed By: #### 2 25944 #### [facility],[address] [place] [address] 41627 Morphology Mike (Bld) [Interp] N/A Normal [facility] Comment on above: Performed By: #### 2 59121 #### [facility],[address] [place] [address] 20115 Neut # 10.12 x10EE3/UL High 1.50 - 7.10 [facility] Comment on above: Performed By: #### 2 61928 #### [facility],[address] [place] [address] 59504 Neutrophils/100 WBC (Bld) 70.5 % Normal 46.0 - 76.0 [facility] Comment on above: Performed By: #### 2 40879 #### [facility],[address] [place] [address] 58344 PLATELET 340 x10EE3/UL Normal 150 - 450 [facility] Comment on above: Performed By: #### 2 74080 #### [facility],[address] [place] [address] 74287 Platelet mean volume (Bld) [Entitic vol] 8.0 fL Normal 6.6 - 10.5 [facility] Comment on above: Result Comment: AUTO MATED DIFFERENTIAL Performed By: #### 2 50324 #### [facility],[address] [place] [address] 38559 RBC 4.79 x 10EE6/UL Normal 4.10 - 5.30 [facility] Comment on above: Performed By: #### 2 59137 #### [facility],[address] [place] [address] 15378 WBC 14.4 x 10EE3/UL High 4.5 - 10.8 [facility] Comment on above: Performed By: #### 2 98559 #### [facility],[address] [place] [address] 33870 CMP with eGFRon 12-10-2024 AGE 39 years Normal [facility] Comment on above: Performed By: #### 2 94901 #### [facility],[address] [place] [address] 15487 Albumin [Mass/Vol] 4.0 g/dL Normal 3.4 - 5.0 [facility] Comment on above: Performed By: #### 2 13273 #### [facility],[address] [place] [address] 06549 Albumin/Globulin [Mass ratio] 1.0 {ratio} Normal 0.9 - 1.6 [facility] Comment on above: Performed By: #### 2 19248 #### [facility],[address] [place] [address] 15779 ALK PHOS 94 U/L Normal 46 - 116 [facility] Comment on above: Performed By: #### 2 52561 #### [facility],[address] [place] [address] 37624 ALT [Catalytic activity/Vol] 52 U/L Normal 16 - 63 [facility] Comment on above: Performed By: #### 2 83968 #### [facility],[address] [place] [address] 65624 Anion gap [Moles/Vol] 14 mmol/L Normal 10 - 20 [facility] Comment on above: Performed By: #### 2 57405 #### [facility],[address] [place] [address] 97944 AST [Catalytic activity/Vol] 31 U/L Normal 13 - 39 [facility] Comment on above: Performed By: #### 2 59840 #### [facility],[address] [place] [address] 39013 B/C RATIO 10 ratio Normal 0 - 30 [facility] Comment on above: Performed By: #### 2 67865 #### [facility],[address] [place] [address] 26946 Bilirubin [Mass/Vol] 0.4 mg/dL Normal 0.2 - 1.0 [facility] Comment on above: Performed By: #### 2 69696 #### [facility],[address] [place] [address] 55465 Calcium [Mass/Vol] 9.6 mg/dL Normal 8.5 - 10.1 [facility] Comment on above: Performed By: #### 2 29484 #### [facility],[address] [place], [place] [address] Chloride [Moles/Vol] 100 mmol/L Normal 98 - 107 [facility] Comment on above: Performed By: #### 2 85673 #### [facility],[address] [place], [place] [address] CMP with eGFR Normal [facility] Comment on above: Result Comment: COMP REHENSIVE METABOLIC PANEL Performed By: #### 2 45199 #### [facility],[address] [place] [address] 05016 CO2 [Moles/Vol] 28.0 mmol/L Normal 21.0 - 32.[address] [facility] Comment on above: Performed By: #### 2 77448 #### [facility],[address] [place] [address] 67139 Creatinine [Mass/Vol] 1.14 mg/dL High 0.55 - 1.02 [facility] Comment on above: Performed By: #### 2 02312 #### [facility],[address] [place] [address] 69166 eGFR 53 ML/MINUTE Low 60 - 999 [facility] Comment on above: Performed By: #### 2 72345 #### [facility],[address] [place] [address] 69710 GFR/1.73 sq M.predicted among non-blacks MDRD (S/P/Bld) [Vol rate/Area] mL/min/{1.73_m2} Normal 60 - 999 [facility] Comment on above: Result Comment: ACCO RDING TO THE NATIONAL KIDNEY DISEASE EDUCATION PROGRAM(NKDE), A NORMAL eGFR IS A VALUE GREATER THAN OR EQUAL TO 60 ML/MIN/1.73 SQ METERS. CHRONIC KIDNEY DISEASE: <60mL/MIN/1.73 SQ METERS KIDNEY FAILURE: <15mL/MIN/1.73 SQ METERS THIS TEST SHOULD ONLY BE USED FOR PATIENTS 18 YEARS OF AGE AND OLDER. Performed By: #### 2 48932 #### [facility],[address] [place] [address] 96206 Globulin (S) [Mass/Vol] 4.1 g/dL High 1.5 - 3.8 [facility] Comment on above: Performed By: #### 2 74505 #### [place] [id number] Glucose [Mass/Vol] 85 mg/dL Normal 74 - 106 [facility] Comment on above: Performed By: #### 2 95814 #### [address] [address] Potassium [Moles/Vol] 3.8 mmol/L Normal 3.5 - 5.1 [facility] Comment on above: Performed By: #### 2 70927 #### [address] [address] Protein [Mass/Vol] 8.1 g/dL Normal 6.4 - 8.2 [facility] Comment on above: Performed By: #### 2 96691 #### [facility],[address] [place] [address] 88678 Sodium [Moles/Vol] 138 mmol/L Normal 136 - 145 [facility] Comment on above: Performed By: #### 2 62095 #### [address] [address] Urea nitrogen [Mass/Vol] 11 mg/dL Normal 7 - 18 [facility] Comment on above: Performed By: #### 2 94375 #### [address] [address] [address] KUB (KIDNEY STONE PROTOCO L)on 12-10-2024 CT KUB (KIDNEY STONE PROTOCOL) [place] [address] [place], [place] [address] Patient: FRANTZ SOLORZANO Phone#: : 1985 Age: 39 Gender: F Pt. Type: ER Account: [id number] Location: 2 Ordering: JUAN MANUEL HOLGUIN Exam Date: 12/10/2024/19:00 Family Phys: TAMIKA MARCIAL Charge Code: [id number] Physician: Nye Order #: [id number] Dose#: [id number] PROCEDURE: CT ABDOMEN AND PELVIS WITHOUT CONTRAST COMPARISON: [facility], CT, KUB W/O CON, 03/05/2021, 21:54. INDICATIONS: Flank pain. TECHNIQUE: After obtaining the patient's consent, CT images of the abdomen and pelvis were created without non-ionic intravenous contrast material. All CT scans at this facility use dose modulation, iterative reconstruction, and/or weight based dosing when appropriate to reduce radiation dose to as low as reasonably achievable. IV CONTRAST: No IV contrast used,0ml TOTAL DOSE: 22.7 CTDIvol(mGy) FINDINGS: Evaluation of the solid organs and soft tissues is limited in the absence of intravenous contrast. KIDNEYS: Bilateral nonobstructing renal calculi there are calcifications in the renal pyramids. There is an obstructing stone at the left distal ureter, series 2, image 106. The stone measures 0.8 x 0.5 cm. There is left severe hydronephrosis and nephrolithiasis. ADRENALS: Normal. No mass or enlargement. URINARY BLADDER: Urinary bladder is decompressed. LIVER: Unremarkable in contour. BILIARY: Gallbladder is absent. PANCREAS: Unremarkable in contour SPLEEN: Unremarkable in contour. Splenule is present adjacent to the lower pole of the spleen. AORTA/VASCULAR: No aortic aneurysm. There are atherosclerotic calcifications of the aorta and branch vessels. RETROPERITONEUM: Normal. No mass or adenopathy. BOWEL/MESENTERY: No bowel obstruction or dilatation. No significant stool burden. The appendix is unremarkable in size. ABDOMINAL WALL: Normal. No mass or hernia. Continued Report - Page 2 of 2 Patient: FRANTZ SOLORZANO Phone#: : 1985 Age: 39 Gender: F Pt. Type: ER Account: [id number] Location: 052 Ordering: JUAN MANUEL HOLGUIN Exam Date: 12/10/2024/19:00 Family Phys: TAMIKA MARCIAL Charge Code: 375218 Physician: Nye Order #: [id number] Dose#: [id number] PELVIC NODES: Normal. No adenopathy. PELVIC ORGANS: Uterus is present. No adnexal mass. Tubal ligation clips are present. BONES: Normal. No bony lesion or fracture. LUNG BASES: Normal. No visible pulmonary or pleural disease. OTHER: Negative. CONCLUSION: 1. Obstructing stone in the left distal ureter resulting in severe hydronephrosis and hydroureter. 2. Bilateral nephrocalcinosis Dictated by: Cassandra Pearce MD on 12/10/2024 at 19:14 Approved by: Cassandra Pearce MD on 12/10/2024 at 19:23 Normal [facility] URINALYSISon 12-10-2024 Amorphous NONE Normal [facility] Comment on above: Performed By: #### 2 64079 #### [facility],[address] [place] [address] Bacteria 2+ Normal [facility] Comment on above: Performed By: #### 2 36363 #### [facility],[address] [place], [place] [address] Bilirubin Ql (U) Negative Normal NORMAL: NEGATIVE [facility] Comment on above: Performed By: #### 2 63218 #### [facility],[address] [place] [address] Casts NONE Normal [facility] Comment on above: Performed By: #### 2 96409 #### [facility],[address] [place] [address] 19471 Clarity (U) sl.cloudy Normal NORMAL: CLEAR [facility] Comment on above: Performed By: #### 2 20845 #### [facility],[address] [place] [address] Color (U) frantz Normal NORMAL: YELLOW [facility] Comment on above: Performed By: #### 2 67776 #### [facility],[address] [place], [place] [address] Crystals LM Nom (Urine sed) NONE Normal [facility] Comment on above: Performed By: #### 2 39958 #### [facility],[address] [place] [address] Epi Cells MODERATE Normal [facility] Comment on above: Performed By: #### 2 75679 #### [facility],[address] [place], [place] [address] Glucose Ql (U) NORM Normal NORMAL: NORMAL [facility] Comment on above: Performed By: #### 2 18385 #### [facility],[address] [place], [place] [address] Hemoglobin Ql (U) 250 Abnormal NORMAL: NEGATIVE [facility] Comment on above: Performed By: #### 2 78922 #### [facility],[address] [place] [address] 97739 Ketone Negative Normal NORMAL: NEGATIVE [facility] Comment on above: Performed By: #### 2 95672 #### [facility],[address] [place] [address] 52478 Leukocytes Negative Normal NORMAL: NEGATIVE [facility] Comment on above: Performed By: #### 2 53050 #### [facility],[address] [place], [place] [address] Mucous 2+ Normal [facility] Comment on above: Performed By: #### 2 66242 #### [facility],[address] [place] [address] 59466 Nitrite Ql (U) Negative Normal NORMAL: NEGATIVE [facility] Comment on above: Performed By: #### 2 60682 #### [facility],[address] [place] [address] pH (U) 6 [pH] Normal NORMAL: 5.0-8.0 [facility] Comment on above: Performed By: #### 2 78100 #### [facility],[address] [place] [address] Protein Ql (U) 30 Abnormal NORMAL: NEGATIVE [facility] Comment on above: Performed By: #### 2 75588 #### [facility],[address] [place] [address] Rbc TNTC Normal 0-3/hpf [facility] Comment on above: Performed By: #### 2 37185 #### [facility],[address] [place] [address] Sp [place] 1.025 Normal NORMAL: 1.010-1.030 [facility] Comment on above: Performed By: #### 2 51530 #### [facility],[address] [place] [address] Specimen Type R Normal [facility] Comment on above: Performed By: #### 2 79292 #### [facility],[address] [place] [address] Urinalysis dipstick W Reflex Microscopic panel (U) SEE BELOW Normal [facility] Comment on above: Result Comment: MICR OSCOPIC Performed By: #### 2 40076 #### [facility],[address] [place], [place] [address] Urobilinog NORM Normal NORMAL: NORMAL [facility] Comment on above: Performed By: #### 2 96038 #### [facility],[address] [place] [address] Wbc 6-10 Normal 0-5/hpf [facility] Comment on above: Performed By: #### 2 11708 #### [facility],[address] [place] [address] Yeast NONE Normal [facility] Comment on above: Performed By: #### 2 46219 #### [facility],[address] [place] [address] Amorphous NONE Normal [facility] Comment on above: Performed By: #### 2 47830 ####[facility],[address] [place] [address] 20610 Bacteria 2+ Normal [facility] Comment on above: Performed By: #### 2 17110 ####[facility],[address] [place] [address] 54071 Bilirubin Ql (U) Negative Normal NORMAL: NEGATIVE [facility] Comment on above: Performed By: #### 2 32152 ####[facility],[address] [place] [address] 61479 Casts NONE Normal [facility] Comment on above: Performed By: #### 2 96731 ####[facility],[address] [place] [address] 64894 Clarity (U) sl.cloudy Normal NORMAL: CLEAR [facility] Comment on above: Performed By: #### 2 16233 ####[facility],[address] [place] [address] 75929 Color (U) frantz Normal NORMAL: YELLOW [facility] Comment on above: Performed By: #### 2 43818 ####[facility],[address] [place] [address] 99466 Crystals LM Nom (Urine sed) NONE Normal [facility] Comment on above: Performed By: #### 2 85639 ####[facility],[address] [place] [address] 37543 Epi Cells MANY Normal [facility] Comment on above: Performed By: #### 2 15323 ####[facility],[address] [place] [address] 67823 Glucose Ql (U) NORM Normal NORMAL: NORMAL [facility] Comment on above: Performed By: #### 2 35371 ####[facility],[address] [place] [address] 56569 Hemoglobin Ql (U) 250 Abnormal NORMAL: NEGATIVE [facility] Comment on above: Performed By: #### 2 11566 ####[facility],[address] [place] [address] 84618 Ketone Negative Normal NORMAL: NEGATIVE [facility] Comment on above: Performed By: #### 2 21265 ####[facility],[address] [place] [address] 19331 Leukocytes Negative Normal NORMAL: NEGATIVE [facility] Comment on above: Performed By: #### 2 04519 ####[facility],[address] [place] [address] 02940 Mucous 2+ Normal [facility] Comment on above: Performed By: #### 2 11948 ####[facility],[address] [place] [address] 99561 Nitrite Ql (U) Negative Normal NORMAL: NEGATIVE [facility] Comment on above: Performed By: #### 2 49357 ####[facility],[address] [place], [place] [address] pH (U) 5 [pH] Normal NORMAL: 5.0-8.0 [facility] Comment on above: Performed By: #### 2 47636 ####[facility],[address] [place], [place] [address] Protein Ql (U) 30 Abnormal NORMAL: NEGATIVE [facility] Comment on above: Performed By: #### 2 77679 ####[facility],[address] [place] [address] 35452 Rbc TNTC Normal 0-3/hpf [facility] Comment on above: Performed By: #### 2 34545 ####[facility],[address] [place] [address] 13554 Sp [place] 1.025 Normal NORMAL: 1.010-1.030 [facility] Comment on above: Performed By: #### 2 18575 ####[facility],[address] [place], [place] [address] Specimen Type R Normal [facility] Comment on above: Performed By: #### 2 52776 ####[facility],[address] [place] [address] 16907 Urinalysis dipstick W Reflex Microscopic panel (U) SEE BELOW Normal [facility] Comment on above: Result Comment: MICR OSCOPIC Performed By: #### 2 72131 ####[facility],[address] [place] [address] Urobilinog NORM Normal NORMAL: NORMAL [facility] Comment on above: Performed By: #### 2 29524 ####[facility],[address] [place] [address] Wbc 6-10 Normal 0-5/hpf [facility] Comment on above: Performed By: #### 2 72394 ####[facility],[address] [place] [address] Yeast NONE Normal [facility] Comment on above: Performed By: #### 2 71447 ####[facility],[address] [place], [place] [address] URINE CULTURE [CCL]on 2024 Bacteria identified Cx Nom (U) URCUL See Results Below See Below CULTURE, URINE NORMAL UROGENITAL JONATHAN 10,000 -<50,000 CFU/ml Normal urogenital jonathan SOURCE: Urine (Nonspecific) [facility] [address] [place] [address] Glen oCrdova III, M.D. [id number] Normal [facility] Comment on above: Performed By: #### 2 98411 #### [facility],[address] [place], [place] [address] CORONAVIRUS (SARS) ANTIGEN T ESTon 10-20-2024 EXTERNAL QC DONE? YES Normal [facility] Comment on above: Performed By: #### 2 08504 #### [facility],[address] [place], [place] [address] INTERNAL CONTROL PASS Normal [facility] Comment on above: Performed By: #### 2 06892 #### [facility],[address] [place] [address] SARS ANTIGEN Negative Normal NORMAL: NEGATIVE [facility] Comment on above: Performed By: #### 2 96290 #### [facility],[address] [place] [address] SEND TO ? NO Normal [facility] Comment on above: Result Comment: SARS -CoV-2 THIS TEST IS BEING USED UNDER THE FDA EUA PROCEDURE. THIS ASSAY HAS BEEN VALIDATED AT [facility] FOR USE WITH NASAL AND NASOPHARYNGEAL SWAB SPECIMENS. INTERPRETIVE DATA TEST RESULTS SHOULD ALWAYS BE CONSIDERED IN THE CONTEXT OF CLINICAL OBSERVATIONS AND EPIDEMIOLOGICAL DATA IN MAKING FINAL DIAGNOSIS AND PATIENT MANAGEMENT DECISIONS. PATIENT MANAGEMENT SHOULD FOLLOW CURRENT CDC GUIDELINES. THE SARAH SARS ANTIGEN LETHA DOES NOT DIFFERENTIATE BETWEEN SARS-CoV & SARS-CoV-2. A POSITIVE TEST RESULT INDICATES THE PRESENCE OF SARS-CoV-2 NUCLEOCAPSID PROTEIN ANTIGEN, AND THE PATIENT IS INFECTED WITH THE VIRUS AND PRESUMED TO BE CONTAGIOUS. A NEGATIVE TEST RESULT FOR THIS TEST MEANS THAT SARS-CoV-2 NUCLEOCAPSID PROTEIN ANTIGEN WAS NOT PRESENT IN THE SPECIMEN ABOVE THE LIMIT OF DETECTION. HOWEVER, A NEGATIVE RESULT DOES NOT RULE OUT COVID-19 AND SHOULD NOT BE USED THE SOLE BASIS FOR TREATMENT OR PATIENT MANAGEMENT DECISIONS. A NEGATIVE RESULT DOES NOT EXCLUDE THE POSSIBILITY OF COVID-19. NEGATIVE RESULTS, FROM PATIENTS WITH SYMPTOM ONSET BEYOND FIVE DAYS, SHOULD BE TREATED PRESUMPTIVE AND CONFIRMATION WITH A MOLECULAR ASSAY, IF NECESSARY, FOR PATIENT MANAGEMENT, MAY BE PERFORMED. WHEN DIAGNOSTIC TESTING IS NEGATIVE, THE POSSIBLILTY OF A FALSE NEGATIVE RESULT SHOULD BE CONSIDERED IN THE CONTEXT OF A PATIENT'S RECENT EXPOSURES AND THE PRESENCE OF CLINICAL SIGNS AND SYMPTOMS CONSISTENT WITH COVID-19. THE POSSIBILITY OF A FALSE NEGATIVE RESULT SHOULD ESPECIALLY BE CONSIDERED IF THE PATIENT'S RECENT EXPOSURES OR CLINICAL PRESENTATION INDICATE THAT COVID-19 IS LIKELY, AND DIAGNOSTIC TESTS FOR OTHER CAUSES OF ILLNESS (e.g., OTHER RESPIRATORY ILLNESS) ARE NEGATIVE. IF COVID-19 IS STILL SUSPECTED BASED ON EXPOSURE HISTORY TOGETHER WITH OTHER CLINICAL FINDINGS, RE-TESTING SHOULD BE CONSIDERED BY HEALTHCARE PROVIDERS IN CONSULTATION WITH PUBLIC HEALTH AUTHORITIES. Performed By: #### 2 67515 #### [facility],[address] [place] [address] ED MED ADMINISTRATION DETAIL on 10-20-2024 ED MED ADMINISTRATION DETAIL Channel Marketing Program Manager Medication Administration Record [place] [address] [place] [address] [phone] 10/20/2024 Patient: FRANTZ SOLORZANO Sex: Female : 1985 Age: 38y MEASUREMENTS: Wt: 111.1 kg, Ht/Dc: 61.0 in, BMI: 46.29 ALLERGIES: tramadol Medication Ordered Medication Administration Date/Time 1 of 1 Normal [facility] ED NURSES CLINICAL NOTEon ED NURSES CLINICAL NOTE Nurse Narrative Nurse Clinical Narrative [place] [address] [place] [address] [phone] 10/20/2024 Patient: FRANTZ SOLORZANO Sex: Female : 1985 Age: 38y Primary Insurance: [place] [employer] Policy Number: [id number] Subscriber: Other Disposition: Discharge to Home Disposition Decision Time: 18:03 10/20/2024 Departure Time: 18:23 10/20/2024 TRIAGE Arrived by private vehicle. Historian: (patient). Primary physician (Tamika Marcial). Chief Complaint: ( diagnosed with strep throat 1 week ago and placed on amoxicillin). Triage time: 16:19 10/20/2024. Acuity: LEVEL 5. Chief Complaint: (Sore Throat). Alert. No acute distress. Onset. (1 week). The patient has had nasal congestion, a nasal discharge and a cough and headache. SEPSIS SCREEN: NEGATIVE. SIRS criteria negative. No possible sources of infection. -- 16:10/20/24 PRACHI Porter R.N. 16:10/20/24. BP: 129/69 MAP: 89. HR: 92. RR: 20. O2 saturation: 97% Temperature: 98.2 F. Pain level now 0/10. -- 16:10/20/24 PRACHI Porter R.N. Measurements: 16:22 10/20/24 Wt: 111.1 kg, Ht/Dc: 61.0 in, BMI: 46.29 -- 16:10/20/24 PRACHI Porter R.N. Medications: 1 of 4 Nurse Narrative fluoxetine 20 mg capsule -- 16:10/20/24 PRACHI Porter R.N. prazosin 2 mg capsule -- 16:10/20/24 PRACHI Porter R.N. rosuvastatin 40 mg tablet -- 16:10/20/24 PRACHI Porter R.N. buspirone 5 mg tablet -- 16:10/20/24 PRACHI Porter R.N. methocarbamol 500 mg tablet -- 16:10/20/24 PRACHI Porter R.N. gabapentin 600 mg tablet -- 16:10/20/24 PRACHI Porter R.N. Allergy Relief (cetirizine) 10 mg tablet -- 16:10/20/24 PRACHI Porter R.N. cetirizine 10 mg tablet -- 16:10/20/24 PRACHI Porter R.N. oxycodone-acetaminop hen 5 mg-325 mg tablet -- 16:10/20/24 PRACHI Porter R.N. montelukast 10 mg tablet -- 16:10/20/24 PRACHI Porter R.N. ipratropium bromide 42 mcg (0.06 %) nasal spray -- 16:10/20/24 PRACHI Porter R.N. fluticasone propionate 50 mcg/actuation nasal spray,suspension -- 16:10/20/24 PRACHI Porter R.N. trazodone 50 mg tablet -- 16:10/20/24 PRACHI Porter R.N. RED YEAST RICE CAP: TAKE 1 CAPSULE BY MOUTH ONCE DAILY -- 16:10/20/24 PRACHI Porter R.N. pantoprazole 40 mg tablet,delayed release -- 16:10/20/24 PRACHI Porter R.N. VITAMIN D3: TAKE 1 CAPSULE BY MOUTH ONCE DAILY -- 16:10/20/24 PRACHI Porter R.N. Allergies: tramadol -- 16:10/20/24 PRACHI Porter R.N. Problems: Seasonal Allergies -- 16:24 10/20/24 PRACHI Porter R.N. PTSD -- 16:10/20/24 PRACHI Porter R.N. Depression -- 16:10/20/24 PRACHI Porter R.N. Bipolar Disorder -- 16:10/20/24 PRACHI Porter R.N. ADDITIONAL SURGERIES: Cholecystectomy -- 16:10/20/24 PRACHI Porter R.N. Tubal Ligation -- 16:10/20/24 PRACHI Porter R.N. -- 16:10/20/24 PRACHI Porter R.N. Dental Surgery -- 16:10/20/24 PRACHI Porter R.N. History 2 of 4 Nurse Narrative 16:10/20/24. SOCIAL HX: Heavy tobacco smoker (cigarette)- less than 1 pack per day. No alcohol use or drug use. The patient has not traveled outside the [place] Infectious disease exposure: No infectious disease exposure. ABUSE ASSESSMENT: Abuse denied. No suspicion of abuse. No report of abuse. SELF HARM ASSESSMENT: Self harm assessment was performed. The patient answered no to the question(s) Have you recently felt down, depressed, or hopeless?, Do you have thoughts of harming or killing yourself?, Do you have a plan for harming or killing yourself?, Have you recently had thoughts about harming or killing others?, Do you have any dangerous items in your possession?, Have you noticed less interest or pleasure in doing things?, Are you here because you tried to hurt yourself? and Have you ever tried to hurt yourself before today?. NUTRITIONAL RISK ASSESSMENT: The nutritional risk assessment revealed no deficiencies. FUNCTIONAL ASSESSMENT: Functional assessment: no impairments noted. LEARNING NEEDS ASSESSMENT: The learning needs assessment revealed no barriers. FALL RISK ASSESSMENT: Fall risk assessment completed. No risk factors identified. SKIN INTEGRITY ASSESSMENT: Skin integrity risk assessment completed. No skin integrity risk identified. -- 16:10/20/24 PRACHI Porter R.N. Assessment 16:10/20/24. The patient states feels the same. -- 16:10/20/24 PRACHI Porter R.N. Interventions 16:19 10/20/24. Identification band on patient. To treatment room. Advanced care plan (FC). -- 16:22 10/20/24 PRACHI Porter R.N. PHYSICAL ASSESSMENT 16:44 10/20/24. Ambulatory to room. GENERAL / NEURO / PSYCH: Alert. Oriented X 4. Appears in no acute distress. HEENT (more content not included)... Normal [facility] ED ORDER SHEET (CPOE ONLY)on 10-20-2024 ED ORDER SHEET (CPOE ONLY) Order Sheet Order Sheet [address] [address] [id number] 10/20/2024 Patient: FRANTZ SOLORZANO Sex: Female : 1985 Age: 38y MEASUREMENTS: Wt: 111.1 kg, Ht/Dc: 61.0 in, BMI: 46.29 ALLERGIES: tramadol MEDICATION/IV/DRIP/F LUID ORDERS Order Description Priority Entered Acknowledged Completed LAB ORDERS Order Description Priority Entered Acknowledged Collected Completed Rapid COVID (SARS) Stat 16:17 10/20/2024 16:22 10/20/2024 16:39 10/20/2024 ANTIGEN TEST Stat Gildardo Ho Lemasters, D.O. R.N. R.N. Flu Swab (Influenzae Stat 16:17 10/20/2024 16:22 10/20/2024 16:39 10/20/2024 AAg) Stat Gildardo Ho Lemasters, D.O. R.N. R.N. DIAGNOSTIC STUDY ORDERS Order Description Priority Entered Acknowledged Completed STAFF ORDERS Order Description Priority Entered Acknowledged Collected Completed 1 of 2 Order Sheet [Electronically signed by Marvin Weiss D.O. (10/20/2024 18:04 EST)] 2 of 2 [facility] ED PHYSICIAN CLINICAL REPORT on 10-20-2024 ED PHYSICIAN CLINICAL REPORT Narrative Physician Clinical Narrative [address] [address] [id number] 10/20/2024 Patient: FRANTZ SOLORZANO [facility]#: [id number] Sex: Female : 1985 Age: 38y Primary Insurance: [employer] Policy Number: [id number] Subscriber: Other Disposition: Discharge Disposition Decision Time: 18:03 10/20/2024 Measurements Wt: 111.1 kg, Ht/Dc: 61.0 in, BMI: 46.29 Initial Vital Sign Measured Time BP MAP HR RR O2Sat ETCO2 Temp Pain GCS RTS 16:22 10/20/2024 129/69 89 92 20 97% 98.2 F 0 Time Seen: 16:13 10/20/2024. Arrived- By private vehicle. Historian- patient. HISTORY OF PRESENT ILLNESS Chief Complaint: COUGH, SORE THROAT and SINUS PAIN. This started 4 days ago. The patient has had a cough, a sore throat, nasal congestion, a nasal discharge and ear pain. (Forty-five days of congestion, ear fullness, sore throat. Patient diagnosed with streptococcal pharyngitis at urgent care and treated with amoxicillin. States that her symptoms have worsened.). REVIEW OF SYSTEMS GI: No nausea or vomiting. The patient has had diarrhea. 1 of 7 Narrative PAST HISTORY Bipolar Disorder Depression PTSD Seasonal Allergies Surgeries: Cholecystectomy Dental Surgery Tubal Ligation Medications: Allergy Relief (cetirizine) 10 mg tablet buspirone 5 mg tablet cetirizine 10 mg tablet fluoxetine 20 mg capsule fluticasone propionate 50 mcg/actuation nasal spray,suspension gabapentin 600 mg tablet ipratropium bromide 42 mcg (0.06 %) nasal spray methocarbamol 500 mg tablet montelukast 10 mg tablet oxycodone-acetaminop hen 5 mg-325 mg tablet pantoprazole 40 mg tablet,delayed release prazosin 2 mg capsule RED YEAST RICE CAP: TAKE 1 CAPSULE BY MOUTH ONCE DAILY rosuvastatin 40 mg tablet trazodone 50 mg tablet VITAMIN D3: TAKE 1 CAPSULE BY MOUTH ONCE DAILY Allergies: tramadol SOCIAL HISTORY No alcohol use or drug use. 2 of 7 Narrative ADDITIONAL NOTES The nursing notes have been reviewed. PHYSICAL EXAM Vital Signs: Have been reviewed. Appearance: Alert. No acute distress. Eyes: Pupils equal, round and reactive to light. ENT: Nose normal. Pharynx normal. Uvula midline. Neck: Normal inspection. Neck supple. CVS: Normal heart rate and rhythm. Heart sounds normal. Pulses normal. Respiratory: No respiratory distress. Breath sounds normal. Skin: Skin warm and dry. Normal skin color. LABS, X-RAYS, AND EKG Laboratory Tests: CORONAVIRUS (SARS) ANTIGEN TEST Final SYLWIA: 10/20/2024 16:23:00 EST MsgRcvd: 10/20/2024 17:21 EST Lab Test Result Reference Status Received Comments NORMAL: 10/20/2024 SARS ANTIGEN NEGATIVE Final NEGATIVE 17:21 EST INTERNAL 10/20/2024 PASS Final CONTROL 17:21 EST EXTERNAL QC 10/20/2024 YES Final DONE? 17:21 EST 3 of 7 Narrative Lab Test Result Reference Status Received Comments SARS-CoV-2 THIS TEST IS BEING USED UNDER THE FDA EUA PROCEDURE. THIS ASSAY HAS BEEN VALIDATED AT THE [facility] FOR USE WITH NASAL AND NASOPHARYNGEAL SWAB SPECIMENS. INTERPRETIVE DATA TEST RESULTS SHOULD ALWAYS BE CONSIDERED IN THE CONTEXT OF CLINICAL OBSERVATIONS AND EPIDEMIOLOGICAL DATA IN MAKING FINAL DIAGNOSIS AND PATIENT MANAGEMENT DECISIONS. PATIENT MANAGEMENT SHOULD FOLLOW CURRENT CDC 4 of 7 GUIDELINES. THE SARAH SARS ANTIGEN LETHA DOES Narrative INFLUENZA VIRUS RAPID A/B Final SYLWIA: 10/20/2024 16:23:00 EST MsgRcvd: 10/20/2024 17:22 EST Lab Test Result Reference Status Received Comments NEGATIVE 10/20/2024 INFLUENZA A Final [NEGATIVE 17:22 EST NEGATIVE 10/20/2024 INFLUENZA B Final [NEGATIVE 17:22 EST INTERNAL 10/20/2024 PASS Final NEG QC 17:22 EST INTERNAL 10/20/2024 PASS Final POS QC 17:22 EST EXTERNAL QC 10/20/2024 YES Final DONE? 17:22 EST 5 of 7 Narrative Lab Test Result Reference Status Received Comments A NEGATIVE TEST RESULT DOES NOT EXCLUDE INFECTION WITH INFLUENZA A OR B. THEREFORE, THE RESULTS OBTAINED FROM THIS FLU TEST SHOULD BE USED IN CONJUCTION WITH CLINICAL FINDINGS TO MAKE AN ACCURATE DIAGNOSIS. A POSITIVE RESULT DOES NOT RULE OUT CO-INFECTIONS WITH OTHER PATHOGENS OR IDENTIFY ANY SPECIFIC INFLUENZA A VIRUS 10/20/2024 SEND TO IC? NO Final SUBTYPE.CO-INFECTION 17:22 EST WITH INFLUENZA A AND B IS RARE. IT IS RECOMMENDED THAT DUAL POSITIVE RESULTS BE CONFIRMED BY VIRAL CULTURE OR AN FDA-CLEARED INFLUENZA A AND B MOLECULAR ASSAY. INDIVIDUALS WHO HAVE 6 of 7 RECEIVED NASALLY ADMINISTERED INFLUENZA Narrative Lab Test Result Reference Status Received Comments RESULT 10/20/2024 NO Final CRITICAL? 17:22 EST PROGRESS AND PROCEDURES Differential D (more content not included)... Normal [facility] ED SUPER BILLon 10-20-[address] [facility] BILL [address] [address] [id number] 10/20/2024 Patient: FRANTZ SOLORZANO Sex: Female : 1985 Age: 38y Item Professional Category Description Facility Code Code Quantity Fee Total Nurse/E/M EMERGENCY 131727 1 $0.00 $0.00 DEPARTMENT VISIT MODERATE SEVERITY (34909-04) Grand Total $0.00 Providers Marvin Weiss D.O. Chief Complaint COUGH, SORE THROAT and SINUS PAIN. Principal Diagnosis Pharyngitis. ICD-10 Codes 1 of 2 [facility] J02.9: Acute pharyngitis, unspecified 2 of 2 [facility] ED VISIT SUMMARYon ED VISIT SUMMARY Visit Overview Visit Overview [address] [address] [id number] 10/20/2024 Patient: FRANTZ SOLORZANO Sex: Female : 1985 Age: 38y 10/20/2024 06:23 PM EST ED Arrival:15:56 10/20/2024 EST Status: Recent Travel:no Language:eng Adv Directive: Isolation Status: Ethnicity:N Fall Risk:no risk Infectious Disease Exposure:no Measurements:5'1 / 154.9 Self-Harm Status:no risk Sepsis Screen:negative cm 245.0 lb / 111.1 kg Chief Complaint:(1 week), (Tamika Marcial), (diagnosed with strep throat 1 week ago and placed on amoxicillin), and (Sore Throat) ALLERGIES tramadol HOME MEDICATIONS Allergy Relief (cetirizine) 10 mg tablet buspirone 5 mg tablet cetirizine 10 mg tablet fluoxetine 20 mg capsule 1 of 3 Visit Overview fluticasone propionate 50 mcg/actuation nasal spray,suspension gabapentin 600 mg tablet ipratropium bromide 42 mcg (0.06 %) nasal spray methocarbamol 500 mg tablet montelukast 10 mg tablet oxycodone-acetaminop hen 5 mg-325 mg tablet pantoprazole 40 mg tablet,delayed release prazosin 2 mg capsule RED YEAST RICE CAP: TAKE 1 CAPSULE BY MOUTH ONCE DAILY rosuvastatin 40 mg tablet trazodone 50 mg tablet VITAMIN D3: TAKE 1 CAPSULE BY MOUTH ONCE DAILY PAST MEDICAL HISTORY / PROBLEMS Bipolar Disorder Depression PTSD Seasonal Allergies PAST SURGICAL HISTORY Cholecystectomy Dental Surgery Tubal Ligation SOCIAL HISTORY Nutritional assessment: No deficits Functional assessment: No impairments Learning needs: No barriers Smoking status: Yes Alcohol use: No Drug use: No ED COURSE 2 of 3 Visit Overview MEDICATIONS GIVEN IN EMERGENCY DEPARTMENT IV SITE INFORMATION INTAKE OUTPUT REASSESMENT (most recent) 16:44 10/20/24. GENERAL / NEURO / PSYCH: Alert. Oriented X 4. HEENT: Mucous membranes are pink. RESPIRATORY: Respirations not labored. Chest nontender. Breath sounds within normal limits. CVS: Capillary refill less than 2 seconds. GI / : Abdomen soft and nontender. SKIN: Skin is warm and dry. Normal skin turgor. VITAL SIGNS First Vitals Last Vitals Temp 16:22 10/20/24 98.2 F Temp 18:22 10/20/24 98.9 F BP 16:22 10/20/24 129/69 BP 18:22 10/20/24 134/76 HR 16:22 10/20/24 92 HR 18:22 10/20/24 87 RR 16:22 10/20/24 20 RR 18:22 10/20/24 18 O2 Sat 16:22 10/20/24 97% O2 Sat 18:22 10/20/24 96% Pain 16:22 10/20/24 0 Pain 18:22 10/20/24 0 ETCO2 16:22 10/20/24 ETCO2 18:22 10/20/24 GCS 16:22 10/20/24 GCS 18:22 10/20/24 RTS 16:22 10/20/24 RTS 18:10/20/24 PROCEDURES NURSING INTERVENTIONS LABS / STUDIES LABS / STUDIES ORDERED Flu Swab (Influenzae AAg) Rapid COVID (SARS) ANTIGEN TEST CLINICAL IMPRESSION PHARYNGITIS 3 of 3 Normal [facility] ED VITALS FLOW SHEETon 10-20 ED VITALS FLOW SHEET Vitals Vital Sign Flow Sheet [address] [place] [address] [id number] 10/20/2024 Patient: FARNTZ SOLORZANO Sex: Female : 1985 Age: 38y Measurements Wt: 111.1 kg, Ht/Dc: 61.0 in, BMI: 46.29 Measured Time BP MAP HR RR O2Sat ETCO2 Temp Pain GCS RTS 18:22 10/20/2024 134/76 95 87 18 96% 98.9 F 0 16:22 10/20/2024 129/69 89 92 20 97% 98.2 F 0 1 of 1 Normal [facility] INFLUENZA VIRUS RAPID A/Bon 10-20-2024 INFLUENZA VIRUS RAPID A/B INFLUENZA A NEGATIVE INFLUENZA B NEGATIVE INTERNAL NEG QC PASS INTERNAL POS QC PASS EXTERNAL QC DONE? YES SEND TO IC? NO A NEGATIVE TEST RESULT DOES NOT EXCLUDE INFECTION WITH INFLUENZA A OR B. THEREFORE, THE RESULTS OBTAINED FROM THIS FLU TEST SHOULD BE USED IN CONJUCTION WITH CLINICAL FINDINGS TO MAKE AN ACCURATE DIAGNOSIS. A POSITIVE RESULT DOES NOT RULE OUT CO-INFECTIONS WITH OTHER PATHOGENS OR IDENTIFY ANY SPECIFIC INFLUENZA A VIRUS SUBTYPE.CO-INFECTION WITH INFLUENZA A AND B IS RARE. IT IS RECOMMENDED THAT DUAL POSITIVE RESULTS BE CONFIRMED BY VIRAL CULTURE OR AN FDA-CLEARED INFLUENZA A AND B MOLECULAR ASSAY. INDIVIDUALS WHO HAVE RECEIVED NASALLY ADMINISTERED INFLUENZA A VACCINE MAY TEST POSITIVE IN COMMERCIALLY AVAILABLE INFLUENZA RAPID DIAGNOSTIC TESTS FOR UP TO THREE DAYS. RESULT CRITICAL? NO Normal [facility] Comment on above: Performed By: #### 2 [id number] ####[facility],[address] [place] [address] HEMOGLOBIN A1C (POM)on 10-04 Glucose [Mass/Vol] 122.6 mg/dL High 0.0 - 0.0 [facility] Comment on above: Result Comment: BLDo HEMOGLOBIN A1C REFERENCE RANGESBLDo Suggested Diagnosis HbA1c(%) HbA1C (mmol/mol Diabetic >/=6.5 >/=48 Prediabetes 5.7 - 6.4 39 - 47 Normal <5.7 <39 Performed By: #### 2 62999 #### [facility],[address] [place] [address] HbA1c (Bld) [Mass fraction] 5.9 % Normal 0.0 - 6.5 [facility] Comment on above: Performed By: #### 2 64387 #### [facility],[address] [place], [place] [id number] T4-FREE (FREE THYROXINE)on 0 10-04-2024 Free T4 [Mass/Vol] 0.82 ng/dL Normal 0.76 - 1.46 [facility] Comment on above: Result Comment: P otential of falsely elevated results when biotin concentrations are > 10 ng/mL. Performed By: #### 2 59381 #### [place] [address] TSHon 10-04-2024 TSH Qn 1.88 m[IU]/L Normal 0.35 - 3.74 [facility] Comment on above: Performed By: #### 2 76780 #### [facility],[address] [place] [address] URIC ACIDon 10-04-2024 Urate [Mass/Vol] 4.0 mg/dL Normal 2.6 - 6.0 [facility] Comment on above: Performed By: #### 2 99979 #### [facility],[address] [place], [place] [id number] ABDOMEN 1 VIEWon 09-22-2024 ABDOMEN 1 VIEW [place] [address] Patient: FRANTZ SOLORZANO Phone#: : 1985 Age: 38 Gender: F Pt. Type: Out Account: [id number] Location: [facility] Ordering: [employer] Exam Date: 09/22/2024/16:37 Family Phys: Charge Code: [id number] Physician: Nye Order #: [id number] Dose#: PROCEDURE: ABDOMEN 1 VIEW COMPARISON: [facility], , ABDOMEN 1 VIEW, 12/08/2021, 13:12. INDICATIONS: Kidney stones. FINDINGS: BOWEL GAS PATTERN: Normal. No abnormal dilation or deviation. CALCIFICATIONS: None significant. OTHER: Tubal ligation clips are present. Left-sided ureteral stent is no longer present. CONCLUSION: 1. Calcification in the distribution the kidneys or ureters are not visualized. Ureteral stent is no longer present. Dictated by: Sade Tang MD on 09/22/2024 at 16:59 Approved by: Sade Tang MD on 09/22/2024 at 17:00 Normal [facility] PTH, INTACT [CCL]on 03-16-20 24 PTH, Intact 27 pg/mL Normal 15-65 [facility] Comment on above: Result Comment: [facility] [address] [place] [address] [place] Cord[place] III, M.D. [id number] Performed By: #### 2 49080 #### [facility],[address] [place] [address] BMP with eGFRon 03-15-2024 AGE 38 years Normal [facility] Comment on above: Performed By: #### 2 34863 #### [facility],[address] [place] [address] Anion gap [Moles/Vol] 10 mmol/L Normal 10 - 20 [facility] Comment on above: Performed By: #### 2 08248 #### [facility],[address] [place] [address] BMP with eGFR Normal [facility] Comment on above: Result Comment: BASI C METABOLIC PANEL Performed By: #### 2 21159 #### [facility],[address] [place] [address] Calcium [Mass/Vol] 9.3 mg/dL Normal 8.5 - 10.1 [facility] Comment on above: Performed By: #### 2 11969 #### [facility],[address] [place] [address] Chloride [Moles/Vol] 104 mmol/L Normal 98 - 107 [facility] Comment on above: Performed By: #### 2 27999 #### [facility],[address] [place] [address] CO2 [Moles/Vol] 28.0 mmol/L Normal 21.0 - 32.[address] [facility] Comment on above: Performed By: #### 2 02657 #### [facility],[address] [place] [address] Creatinine [Mass/Vol] 1.01 mg/dL Normal 0.55 - 1.02 [facility] Comment on above: Performed By: #### 2 59748 #### [facility],[address] [place] [address] GFR/1.73 sq M.predicted among non-blacks MDRD (S/P/Bld) [Vol rate/Area] mL/min/{1.73_m2} Normal 60 - 999 [facility] Comment on above: Performed By: #### 2 04445 #### [facility],[address] [place] [address] Result Comment: ACCO RDING TO THE NATIONAL KIDNEY DISEASE EDUCATION PROGRAM(NKDE), A NORMAL eGFR IS A VALUE GREATER THAN OR EQUAL TO 60 ML/MIN/1.73 SQ METERS. CHRONIC KIDNEY DISEASE: <60mL/MIN/1.73 SQ METERS KIDNEY FAILURE: <15mL/MIN/1.73 SQ METERS THIS TEST SHOULD ONLY BE USED FOR PATIENTS 18 YEARS OF AGE AND OLDER. Glucose [Mass/Vol] 98 mg/dL Normal 74 - 106 [facility] Comment on above: Performed By: #### 2 52192 #### [facility],[address] [place] [address] Potassium [Moles/Vol] 3.8 mmol/L Normal 3.5 - 5.1 [facility] Comment on above: Performed By: #### 2 75285 #### [facility],[address] [place] [address] Sodium [Moles/Vol] 138 mmol/L Normal 136 - 145 [facility] Comment on above: Performed By: #### 2 14108 #### [facility],[address] [place] [address] Urea nitrogen [Mass/Vol] 9 mg/dL Normal 7 - 18 [facility] Comment on above: Performed By: #### 2 10017 #### [facility],[address] [place] [address] PTH-Intact SerPl-mCncon 02-27 Parathyrin.intact [Mass/Vol] 27 pg/mL Normal 15-65 [facility] Comment on above: Order Comment: Speci men Type: BLOOD SPECIMEN Ordering Facility: [facility] Address: [address] [place] [address] Performed By: #### 2 731-8 #### [facility] CLIA [id number] [address] [place] [address] [place] VITAMIN D, 25 HYDROXYon 02-27 VitD 67.00 ng/mL Normal 30.00 - 100 [facility] Comment on above: Result Comment: 25-O HD3 indicates both endogenous production and supplementation. 25-OHD2 is an indicator of exogenous sources, such as diet or supplementation. Therapy is based on measurement of Total 25-OHD, with levels <20 ng/mL indicative of Vitamin D deficiency, while levels between 20 ng/mL and 30 ng/mL suggest insufficiency. Optimal levels are >=30ng/mL. Vitamin D, 25-OH D3 Not Established Vitamin D, 25-OH D2 Not Established Performed By: #### 2 81273 #### [facility],[address] [place] [address] XR RETROGRADE PYELOGRAMon XR RETROGRADE PYELOGRAM ORIGINAL EXAMINATION: RETROGRADE PYELOGRAM03/03/2024 3:02 pm COMPARISON: None. HISTORY: ORDERING SYSTEM PROVIDED HISTORY: Reason for Exam: STONE FLUOROSCOPY DOSE AND TYPE: Radiation Exposure Index: DAP uGy*m2, 5.8 FINDINGS: Intraoperative fluoroscopy utilized for retrograde pyelogram. Single image reveals right ureteral stent. IMPRESSION: Please see procedure note for further detail. Interpreted by: Lili Miller DO Preliminary Report By: Lili Miller DO Electronically signed By Lili Miller DO Dictated Date: 03/03/2024 4:06:48 PM Prelim Date: 03/03/2024 4:07:53 PM Sign Date: 03/03/2024 4:07:53 PM Ordering Provider: LILI Gore [facility] ([place]) .Auto Diffon 02-21-2024 Basophil, Absolute 0.1 10 3/mcL Normal 0.0-0.3 [facility] ([place]) Comment on above: Performed By: #### C BC, ADIFF, ANEU, BMP, GFR #### [address] [address] Basophils/100 WBC (Bld) 0.7 % Normal 0.0-2.5 [facility] ([place]) Comment on above: Performed By: #### C BC, ADIFF, ANEU, BMP, GFR #### [address] [address] Eosinophil, Absolute 0.2 10 3/mcL Normal 0.0-0.7 [facility] ([place]) Comment on above: Performed By: #### C BC, ADIFF, ANEU, BMP, GFR #### [address] [address] Eosinophils/100 WBC (Bld) 2.5 % Normal 0.0-6.0 [facility] ([place]) Comment on above: Performed By: #### C BC, ADIFF, ANEU, BMP, GFR #### [address] [address] Lymphocyte, Absolute 2.8 10 3/mcL Normal 0.9-4.3 [facility] ([place]) Comment on above: Performed By: #### C BC, ADIFF, ANEU, BMP, GFR #### [address] [address] Lymphocytes/100 WBC (Bld) 31.2 % Normal 20.0-40.0 [facility] ([place]) Comment on above: Performed By: #### C BC, ADIFF, ANEU, BMP, GFR #### [address] [address] Monocyte, Absolute 0.6 10 3/mcL Normal 0.1-1.4 [facility] ([place]) Comment on above: Performed By: #### C BC, ADIFF, ANEU, BMP, GFR #### [address] [address] Monocytes/100 WBC (Bld) 7.2 % Normal 2.0-13.0 [facility] ([place]) Comment on above: Performed By: #### C BC, ADIFF, ANEU, BMP, GFR #### [address] [address] Neutrophils/100 WBC (Bld) 58.4 % Normal 50.0-75.0 [facility] ([place]) Comment on above: Performed By: #### C BC, ADIFF, ANEU, BMP, GFR #### [address] [address] .GFRon 02-21-2024 GFR Non- >60 Normal [facility] ([place]) Comment on above: Result Comment: GFR Population mean for , Non- Americans Ages 20-29 = 116 mL/min/1.73 sq.m. Ages 30-39 = 107 mL/min/1.73 sq.m. Ages 40-49 = 99 mL/min/1.73 sq.m. Ages 50-59 = 93 mL/min/1.73 sq.m. Ages 60-69 = 85 mL/min/1.73 sq.m. Ages 70+ = 75 mL/min/1.73 sq.m. Chronic Kidney Disease: Less than 60 mL/min/1.73 square meters End Stage Renal Disease: Less than 15 mL/min/1.73 square meters Performed By: #### C BC, ADIFF, ANEU, BMP, GFR #### [address] [address] GFR >60 Normal [facility] ([place]) Comment on above: Result Comment: GFR Population mean for , Non- Americans Ages 20-29 = 116 mL/min/1.73 sq.m. Ages 30-39 = 107 mL/min/1.73 sq.m. Ages 40-49 = 99 mL/min/1.73 sq.m. Ages 50-59 = 93 mL/min/1.73 sq.m. Ages 60-69 = 85 mL/min/1.73 sq.m. Ages 70+ = 75 mL/min/1.73 sq.m. Chronic Kidney Disease: Less than 60 mL/min/1.73 square meters End Stage Renal Disease: Less than 15 mL/min/1.73 square meters Performed By: #### C BC, ADIFF, ANEU, BMP, GFR #### [address] [address] .NEUABSon 02-21-2024 Neutrophil, Absolute 5.2 10 3/mcL Normal 2.3-8.1 [facility] ([place]) Comment on above: Performed By: #### C BC, ADIFF, ANEU, BMP, GFR #### [address] [address] BMPon 02-21-2024 BUN/Creatinine Ratio 13.2 ratio Normal 10.0-22.0 [facility] ([place]) Comment on above: Performed By: #### C BC, ADIFF, ANEU, BMP, GFR #### [address] [address] Calcium [Mass/Vol] 9.8 mg/dL Normal 8.7-10.4 [facility] ([place]) Comment on above: Performed By: #### C BC, ADIFF, ANEU, BMP, GFR #### [address] [address] Chloride [Moles/Vol] 105 mmol/L Normal 98-110 [facility] ([place]) Comment on above: Performed By: #### C BC, ADIFF, ANEU, BMP, GFR #### [address] [address] CO2 [Moles/Vol] 29 mmol/L Normal 22-32 [facility] ([place]) Comment on above: Performed By: #### C BC, ADIFF, ANEU, BMP, GFR #### [address] [address] Creatinine [Mass/Vol] 0.91 mg/dL Normal 0.50-1.20 [facility] ([place]) Comment on above: Performed By: #### C BC, ADIFF, ANEU, BMP, GFR #### [address] [address] Electrolyte Balance 7.0 mEq/L Normal 4.0-15.0 [facility] ([place]) Comment on above: Performed By: #### C BC, ADIFF, ANEU, BMP, GFR #### [address] [address] Glucose [Mass/Vol] 92 mg/dL Normal 70-110 [facility] ([place]) Comment on above: Performed By: #### C BC, ADIFF, ANEU, BMP, GFR #### [address] [address] Potassium [Moles/Vol] 4.5 mmol/L Normal 3.5-5.0 [facility] ([place]) Comment on above: Performed By: #### C BC, ADIFF, ANEU, BMP, GFR #### [place] [id number] Sodium [Moles/Vol] 141 mmol/L Normal 136-145 [facility] ([place]) Comment on above: Performed By: #### C BC, ADIFF, ANEU, BMP, GFR #### [place] [address] Urea nitrogen [Mass/Vol] 12.0 mg/dL Normal 8.0-22.0 [facility] ([place]) Comment on above: Performed By: #### C BC, ADIFF, ANEU, BMP, GFR #### [address] [address] CBCon 02-21-2024 Erythrocyte distribution width (RBC) [Ratio] 14.1 % Normal 11.5-15.5 [facility] ([place] Comment on above: Performed By: #### C BC, ADIFF, ANEU, BMP, GFR #### [address] [address] Hematocrit (Bld) [Volume fraction] 36.6 % Normal 34.0-46.0 [facility] ([place] Comment on above: Performed By: #### C BC, ADIFF, ANEU, BMP, GFR #### [address] [address] Hgb 12.7 G/dL Normal 12.0-16.0 [facility] ([place] Comment on above: Performed By: #### C BC, ADIFF, ANEU, BMP, GFR #### [place] [address] MCH (RBC) [Entitic mass] 30.3 pg Normal 27.0-33.0 [facility] ([place] Comment on above: Performed By: #### C BC, ADIFF, ANEU, BMP, GFR #### [place] [address] MCHC 34.7 G/dL Normal 32.0-36.0 [facility] ([place] Comment on above: Performed By: #### C BC, ADIFF, ANEU, BMP, GFR #### [place] [address] MCV (RBC) [Entitic vol] 87.3 fL Normal 80.0-99.0 [facility] ([place] Comment on above: Performed By: #### C BC, ADIFF, ANEU, BMP, GFR #### [place] [address] Platelet 260 10 3/mcL Normal 150-450 [facility] ([place] Comment on above: Performed By: #### C BC, ADIFF, ANEU, BMP, GFR #### [place] [address] Platelet mean volume (Bld) [Entitic vol] 7.9 fL Normal 6.6-10.5 [facility] ([place] Comment on above: Performed By: #### C BC, ADIFF, ANEU, BMP, GFR #### [place] [address] RBC 4.19 10 6/mcL Normal 4.10-5.30 [facility] ([place] Comment on above: Performed By: #### C BC, ADIFF, ANEU, BMP, GFR #### [place] [address] WBC 8.8 10 3/mcL Normal 4.5-10.8 [facility] ([place] Comment on above: Performed By: #### C BC, ADIFF, ANEU, BMP, GFR #### [place] [id number] [address] [place] [address] LABORATORYOrdered By: SYSTEM SYSTEM on 02-21-2024 Basophils (Bld) [#/Vol] 0.1 103/mcL Normal 0.0 - 0.3 10^3/mcL AH Workflow SS Basophils/100 WBC (Bld) 0.7 % Normal 0.0 - 2.5 % AH Workflow SS Calcium [Mass/Vol] 9.8 mg/dL Normal 8.7 - 10. 4 mg/dL ADM SS Chloride [Moles/Vol] 105 mmol/L Normal 98 - 11 0 mEq/L ADM SS CO2 [Moles/Vol] 29 mmol/L Normal 22 - 32 mEq/L ADM SS Creatinine [Mass/Vol] 0.91 mg/dL Normal 0.50 - 1.20 mg/dL ADM SS Electrolyte Balance 7.0 mEq/L Normal 4.0 - 15 .0 mEq/L ADM SS Eosinophils (Bld) [#/Vol] 0.2 103/mcL Normal 0.0 - 0.7 10^3/mcL AH Workflow SS Eosinophils/100 WBC (Bld) 2.5 % Normal 0.0 - 6.0 % AH Workflow SS Erythrocyte distribution width (RBC) [Ratio] 14.1 % Normal 11.5 - 15.5 % AH Workflow SS GFR/1.73 sq M.predicted among blacks MDRD (S/P/Bld) [Vol rate/Area] ml/min/1.73sqm Invalid Interpretation Code Chemistry S Comment on above: Interpretive Data: GFR Population mean for , Non- Americans Ages 20-29 = 116 mL/min/1.73 sq.m. Ages 30-39 = 107 mL/min/1.73 sq.m. Ages 40-49 = 99 mL/min/1.73 sq.m. Ages 50-59 = 93 mL/min/1.73 sq.m. Ages 60-69 = 85 mL/min/1.73 sq.m. Ages 70+ = 75 mL/min/1.73 sq.m. Chronic Kidney Disease: Less than 60 mL/min/1.73 square meters End Stage Renal Disease: Less than 15 mL/min/1.73 square meters GFR/1.73 sq M.predicted among non-blacks MDRD (S/P/Bld) [Vol rate/Area] ml/min/1.73sqm Invalid Interpretation Code Chemistry S Comment on above: Interpretive Data: GFR Population mean for , Non- Americans Ages 20-29 = 116 mL/min/1.73 sq.m. Ages 30-39 = 107 mL/min/1.73 sq.m. Ages 40-49 = 99 mL/min/1.73 sq.m. Ages 50-59 = 93 mL/min/1.73 sq.m. Ages 60-69 = 85 mL/min/1.73 sq.m. Ages 70+ = 75 mL/min/1.73 sq.m. Chronic Kidney Disease: Less than 60 mL/min/1.73 square meters End Stage Renal Disease: Less than 15 mL/min/1.73 square meters Glucose [Mass/Vol] 92 mg/dL Normal 70 - 110 mg/dL ADM SS Hematocrit (Bld) [Volume fraction] 36.6 % Normal 34.0 - 46.0 % Workflow SS Hemoglobin (Bld) [Mass/Vol] 12.7 G/dL Normal 12.0 - 16.0 G/dL AH Workflow SS Lymphocytes (Bld) [#/Vol] 2.8 103/mcL Normal 0.9 - 4.3 10^3/mcL AH Workflow SS Lymphocytes/100 WBC (Bld) 31.2 % Normal 20.0 - 40.0 % AH Workflow SS MCH (RBC) [Entitic mass] 30.3 pg Normal 27.0 - 33.0 pg AH Workflow SS MCHC 34.7 G/dL Normal 32.0 - 36.0 G/dL Workflow SS MCV (RBC) [Entitic vol] 87.3 fL Normal 80.0 - 99.0 fL AH Workflow SS Monocytes (Bld) [#/Vol] 0.6 103/mcL Normal 0.1 - 1.4 10^3/mcL AH Workflow SS Monocytes/100 WBC (Bld) 7.2 % Normal 2.0 - 13.0 % AH Workflow SS Neutrophils (Bld) [#/Vol] 5.2 103/mcL Normal 2.3 - 8.1 10^3/mcL AH Workflow SS Neutrophils/100 WBC (Bld) 58.4 % Normal 50.0 - 75.0 % Workflow SS Platelet mean volume (Bld) [Entitic vol] 7.9 fL Normal 6.6 - 10.5 fL Workflow SS Platelets (Bld) [#/Vol] 260 103/mcL Normal 150 - 450 10^3/mcL AH Workflow SS Potassium [Moles/Vol] 4.5 mmol/L Normal 3.5 - 5.0 mEq/L ADM SS RBC (Bld) [#/Vol] 4.19 106/mcL Normal 4.10 - 5.3 0 10^6/mcL Workflow SS Sodium [Moles/Vol] 141 mmol/L Normal 136 - 145 mEq/L ADM SS Urea nitrogen [Mass/Vol] 12.0 mg/dL Normal 8.0 - 22.0 mg/dL ADM SS Urea nitrogen/Creatinine [Mass ratio] 13.2 ratio Normal 10.0 - 22.0 ratio ADM SS WBC (Bld) [#/Vol] 8.8 103/mcL Normal 4.5 - 10.8 10^3/mcL Workflow SS CT ABDOMEN/PELVIS W/O CONTRA STon 01-20-2024 CT ABDOMEN/PELVIS W/O CONTRAST ORIGINAL EXAMINATION: CT OF THE ABDOMEN AND PELVIS WITHOUT CONTRAST01/19/2024 5:59 pm TECHNIQUE: CT of the abdomen and pelvis was performed without the administration of intravenous contrast. Multiplanar reformatted images are provided for review. Automated exposure control, iterative reconstruction, and/or weight based adjustment of the mA/kV was utilized to reduce the radiation dose to as low as reasonably achievable. COMPARISON: None HISTORY: ORDERING SYSTEM PROVIDED HISTORY: Reason for Exam: bilateral kidney stone, bilateral lower back pain, bilateral lower abdominal pain, prior imaging right ureteral stone- not passed per patient FINDINGS: No acute or suspicious soft tissue or bony abnormality. Provided images of the lower thorax are unremarkable. The liver is unremarkable in size and contour. The gallbladder is surgically absent. The pancreas, spleen, and adrenal glands are unremarkable. Distal right ureter calculi measuring up to 7 mm with likely mild right hydroureteronephrosi s. There is also bilateral nonobstructive nephrolithiasis. In addition, bilateral medullary nephrocalcinosis is present. The urinary bladder is grossly unremarkable. The visualized esophagus, stomach, and duodenum are unremarkable. The visualized aorta is nonaneurysmal. The GI tract exhibits no acute abnormalities. Unremarkable appendix. No enlarged lymph nodes are identified. There is no free intraperitoneal air or fluid. Grossly unremarkable uterus. Prior bilateral tubal occlusions. IMPRESSION: Distal right ureteral calculi measuring up to 7 mm with likely mild obstruction. Bilateral nonobstructive nephrolithiasis. Medullary nephrocalcinosis. I have personally reviewed the images of this examination and agree with the resident's findings and interpretation. Interpreted by: Anthony Rivera MD Preliminary Report By: Harshad Cee Electronically signed By Anthony Rivera MD Dictated Date: 01/20/2024 7:41:18 AM Prelim Date: 01/20/2024 10:21:54 AM Sign Date: 01/20/2024 10:21:54 AM Ordering Provider: VREONICA Gore [facility] ([place]) Travis 12-27-2023 CNPN Telephone (URCANT) FRANTZ SULTANA ([id number]) 1985 F Date Time Provider Department 12/27/23 UROLOGY (HISTORY) URCANT During your visit today, we recorded the following information about you: Denisse Mayer 12/27/2023 1:13 PM Signed Urology one records sent to [facility] and scanned into [facility] As of Date: 12/27/2023 (Not on File) Date Reviewed: Never Reviewed Reason for Visit: records request [Other] Problem List As Of Date: 12/27/2023 (None) Encounter Status:Closed by DENISSE MAYER on 12/27/23 [facility] L/S Spine Min 4 Viewson 10 L/S Spine Min 4 Views [facility] Radiology [address] [place] [address] L/S Spine Min 4 Views MR#: [id number] Acct: [id number] Name: FRANTZ KAUFFMAN Rep #: [id number] : 1985 F 37 From: Leon Pathak MD PCP: YONATHAN Coughlin Status: DEP AMB Study: L/S Spine Min 4 Views Date of Exam: 06/15/23 Exam# [id number] Ordering Dr: David Chao MD [id number] STUDY: X-RAY - LUMBAR SPINE REASON FOR EXAM: Female, 37 years old. Increasing lower back pain. TECHNIQUE: 5 view(s) of the lumbar spine, including lateral flexion and extension, were obtained. COMPARISON: MRI of the lumbar spine dated June 02, 2023. FINDINGS: Normal lumbar lordosis. No substantial scoliosis. Normal alignment of the vertebrae. Normal extension with minimal flexion with no abnormal motion. Diffuse lower thoracic and lumbosacral facet sclerosis. Mild intervertebral disc space narrowing at T12-L1, L1, L3-L4 and L4-L5 with small osteophytes. Calcifications project over both renal outlines, the largest of which measures approximately 2.4 cm and is projected over the upper pole of the left kidney. Small calcifications projected over the right kidney. Tubal ligation clips. RAD/L/S Spine Min 4 Views IMPRESSION: Mild lumbosacral spondylosis with normal extension and minimal flexion with no abnormal motion. Bilateral nephrocalcinosis, left greater than right. Electronically Signed: Leon Pathak MD at 9:50 EDT , CC: YONATHAN Charles; Dr. David Chao MD Commercial Sales Consultant: Signed Normal [facility] Orthopedic Visit Reporton Orthopedic Visit Report [facility] [address] [place] [address] [address] [place] [address] OFFICE VISIT Date of Service: 06/15/23 MR#: [id number] Acct: [id number] Name: FRANTZ KAUFFMAN Rep #: [id number] : 1985 Provider: Dr. David Chao MD Age/Sex: 37/F Location: [facility] Status: Signed Intake Vital Signs 07/15/22 14:45 Height 5 ft 1 in Intake Visit Reasons: LUMBER SPINE Chief Complaint: Low back pain Is patient in pain?: Yes Allergies Dressing: Non-Medicated [bandaids] Allergy (Verified 06/15/23 08:06) Rash tramadol Allergy (Verified 06/15/23 08:06) Rash Medications cyclobenzaprine 7.5 mg tablet 7.5 mg PO QHS 07/15/22 [History Confirmed 06/15/23] oxycodone 5 mg tablet 5 mg PO BID PRN 07/15/22 [History Confirmed 06/15/23] buspirone 10 mg tablet mg PO 05/06/23 [History Confirmed 06/15/23] calcium carbonate 600 mg-vitamin D3 20 mcg (800 unit) tablet tab PO 05/06/23 [History Confirmed 06/15/23] cetirizine 10 mg tablet (All Day Allergy (cetirizine)) 10 mg PO DAILY 05/06/23 [History Confirmed 06/15/23] fluoxetine 20 mg capsule mg PO 05/06/23 [History Confirmed 06/15/23] fluoxetine 40 mg capsule 40 mg PO 05/06/23 [History Confirmed 06/15/23] fluticasone propionate 50 mcg/actuation nasal spray,suspension intranasal 05/06/23 [History Confirmed 06/15/23] montelukast 10 mg tablet mg PO 05/06/23 [History Confirmed 06/15/23] pantoprazole 40 mg tablet,delayed release mg PO 05/06/23 [History Confirmed 06/15/23] prazosin 1 mg capsule mg PO 05/06/23 [History Confirmed 06/15/23] red yeast rice 600 mg capsule 600 mg PO DAILY 05/06/23 [History Confirmed 06/15/23] rosuvastatin 20 mg tablet 20 mg PO 05/06/23 [History Confirmed 06/15/23] trazodone 50 mg tablet 50 mg PO 05/06/23 [History Confirmed 06/15/23] PFSH Medical History High blood pressure Lumbar sprain Surgical History Hx of section Hx of cholecystectomy Hx of tubal ligation Family History Other Breast cancer Hypercholesterolemia Hypertension Social History Smoking Status: Former smoker alcohol intake: current what type of physical activity do you participate in: walking HPI LUMBER SPINE Details: Parts of this documentation were recorded by a scribe, this documentation accurately reflects the service provided and the decisions made by me, Dr. David Chao MD 06/15/23 0801. FRANTZ KAUFFMAN is a 37 year old F here today for low back pain. She was seen by Dr Wang last week who referred her to be seen. Patient complains of pain into her bilateral lower back and ribs. Patient states that she has had pain for over a year. 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 She has tingling into her bilateral legs into her feet. Patient completed physical therapy which made her pain worse. She had epidural injections as well which also increased her pain. Patient had an MRI which is here for review. Patient takes muscle relaxer and percocet at night to help with sleep for pain given to her by her PCP. I am seeing Frantz for second opinion. She has seen Dr. Wang multiple times since June of last year. She continues to have low back pain that often goes towards the buttock and left worse than right lower extremities. She also has mid back pain that seems to radiate towards the left lower ribs into the left lower abdominal quadrant. Her low back pain has been there since a very young age. Last year, as she was working as a woodworking shop hand, she felt a severe pain into her mid back that started radiating to his left lower ribs. She has not been able to do the same kind of work since. She is currently a [id number] mom. She has tried physical therapy, chiropractic treatment, and [address] Fonseca in October of this year. She reported that all these modalities seem to worsen her pain. She still however tries to do the home exercise program. She has had kidney stone problems in the past which caused her left loin pain, but she says that this current pain is different. Ortho Exam General General: Yes no acute distress Neurologic: Yes alert and Yes oriented x3 Spine SPINE TESTING CERVICAL THORACIC LUMBAR Musculoskeletal Strength 0=absent - 5=normal Details: Examination of the back shows midline tenderness in the lower lumbar spine, paraspinal tenderness throughout the thoracolumbar spine bilaterally. Range of motion of lower back seems limited. Rib compression seems to elicit some pain, but this seems to be there even with upper ribs. Neurologic evaluation of lower extremity shows 5 x 5 power in all muscles normal sensations in al (more content not included)... Normal [facility] Orthopedic Visit Reporton Orthopedic Visit Report [facility] [address] [place] [address] OFFICE VISIT Date of Service: 06/11/23 MR#: [id number] Acct: [id number] Name: FRANTZ KAUFFMAN Rep #: [id number] : 1985 Provider: Dr. Manny morrell DO Age/Sex: 37/F Location: [facility] Status: Signed Intake Vital Signs 07/15/22 14:45 Height 5 ft 1 in Intake Visit Reasons: LUMBAR SPINE Chief Complaint: lumbar Accompanied by: Self Is patient in pain?: Yes Pain scale (1-10): 7 Allergies Dressing: Non-Medicated [bandaids] Allergy (Verified 06/11/23 13:00) Rash tramadol Allergy (Verified 06/11/23 13:00) Rash Medications cyclobenzaprine 7.5 mg tablet 7.5 mg PO QHS 07/15/22 [History Confirmed 06/11/23] oxycodone 5 mg tablet 5 mg PO BID PRN 07/15/22 [History Confirmed 06/11/23] buspirone 10 mg tablet mg PO 05/06/23 [History Confirmed 06/11/23] calcium carbonate 600 mg-vitamin D3 20 mcg (800 unit) tablet tab PO 05/06/23 [History Confirmed 06/11/23] cetirizine 10 mg tablet (All Day Allergy (cetirizine)) 10 mg PO DAILY 05/06/23 [History Confirmed 06/11/23] fluoxetine 20 mg capsule mg PO 05/06/23 [History Confirmed 06/11/23] fluoxetine 40 mg capsule 40 mg PO 05/06/23 [History Confirmed 06/11/23] fluticasone propionate 50 mcg/actuation nasal spray,suspension intranasal 05/06/23 [History Confirmed 06/11/23] montelukast 10 mg tablet mg PO 05/06/23 [History Confirmed 06/11/23] pantoprazole 40 mg tablet,delayed release mg PO 05/06/23 [History Confirmed 06/11/23] prazosin 1 mg capsule mg PO 05/06/23 [History Confirmed 06/11/23] red yeast rice 600 mg capsule 600 mg PO DAILY 05/06/23 [History Confirmed 06/11/23] rosuvastatin 20 mg tablet 20 mg PO 05/06/23 [History Confirmed 06/11/23] trazodone 50 mg tablet 50 mg PO 05/06/23 [History Confirmed 06/11/23] PFSH Medical History High blood pressure Lumbar sprain Surgical History Hx of section Hx of cholecystectomy Hx of tubal ligation Family History Other Breast cancer Hypercholesterolemia Hypertension Social History Smoking Status: Former smoker alcohol intake: current what type of physical activity do you participate in: walking HPI LUMBAR SPINE Details: Parts of this documentation were recorded by a scribe, this documentation accurately reflects the service provided and the decisions made by me, Dr. Manny Wang, DO 06/11/23 2835. FRANTZ KAUFFMAN is a 37 year old F here today for review of lumbar spine MRI. Reviewed Farntz's MRI scan. She has a protrusion with an annular tear at L4-5. The space is well- maintained but the disc is basically what we call a black disc it is desiccated. I do not know whether this is the source of her low back pain or not. Dr. Fonseca performed epidural steroid injection and it did not help her at all which is a bit surprising. Also complains of this pain in her left rib cage that started perhaps a year ago starts just to the left of the midline and goes around several ribs. Several ribs were tender to palpation as I palpated them. This could be a case of intercostal neuralgia. I am awaiting a plain x-rays of the left rib cage. X-rays of the left rib cage were unremarkable to me. The MRI scan is already been discussed. I explained to Frantz that I believe that there are 2 different things going on. The pain around her rib cage is not coming from the L4-5 disc. I told her that I would like a second opinion from my new associate Dr. Chao. We will get her a appointment to see him. I will discuss her case with him after he sees her. Coding Level of Care Code Off vis,est,level 3 Diagnoses Rib pain on left side R07.81 Herniation of intervertebral disc between L4 and L5 M51.26 Annular tear of lumbar disc M51.36 Time Spent (min) 20 Assessment and Plan Assessment and Plan (1) Rib pain on left side: Status: Acute (2) Herniation of intervertebral disc between L4 and L5: Status: Acute (3) Annular tear of lumbar disc: Status: Acute 06/11/23 1411 Date Manny Wang DO [facility] Signature: Date (if applicable) CC: CONTAINER SHOP WELDER-C DEB. Justa Charles; Dr. Raheem Fonseca MD [facility] Ribs Uni Min 3V w/PA Cheston 06-11-2023 Ribs Uni Min 3V w/PA Chest [facility]iology [address] [place] [address] Ribs Uni Min 3V w/PA Chest MR#: [id number] Acct: [id number] Name: FRANTZ KAUFFMAN Rep #: [id number] : 1985 F 37 From: Lg britton DO PCP: YONATHAN Coughlin Status: DEP AMB Study: Ribs Uni Min 3V w/PA Chest Date of Exam: 06/11 Exam# [id number] Ordering Dr: Manny Wang DO [id number] EXAM: XR LEFT RIBS AND AP CHEST, 3 OR MORE VIEWS CLINICAL INDICATION: pain -- Left Ribcage TECHNIQUE: Frontal and oblique views of the left ribs and frontal view of the chest. COMPARISON: No relevant prior studies available. FINDINGS: LUNGS AND PLEURAL SPACES: No significant abnormality. No consolidation or edema. No pneumothorax. No effusion. HEART: No significant abnormality. Cardiac silhouette not enlarged. MEDIASTINUM: Central airways and mediastinal contour are unremarkable. BONES/JOINTS: No significant abnormality. No evidence of displaced rib fractures. RAD/Ribs Uni Min 3V w/PA Chest IMPRESSION: Negative chest and left ribs series. Electronically Signed: Lg Suh DO at 23:35 EDT , CC: [employer] W[employer]-C NP. Justa Charles; Dr. Manny Wang DO Commercial Sales Consultant: Signed Normal [facility] Spine Lumbar (Routine)on Spine Lumbar (Routine) [facility] [address] [place] [address] Spine Lumbar (Routine) MR#: [id number] Acct: [id number] Name: FRANTZ KAUFFMAN Rep #: [id number] : 1985 F 37 From: Xavier Whipple MD PCP: YONATHAN Coughlin Status: DEP CLI Study: Spine Lumbar (Routine) Date of Exam: 06/02/23 Exam# [id number] Ordering Dr: Manny Wang DO [id number] STUDY: MRI LUMBAR SPINE WITHOUT CONTRAST REASON FOR EXAM: Female, 37 years old. Pain in low back and ribs, sharp/achy/tingling bilateral post. legs x1+yrs, NKI TECHNIQUE: Standardized fat and water weighted pulse sequences were obtained in the sagittal and axial planes. COMPARISON: MRI lumbar spine without contrast 09/15/2022. FINDINGS: T10-T11, T11-T12 and T12-L1: (Sagittal only). Normal endplates. Normal disc height, hydration and morphology. Normal central canal and bilateral intervertebral neural foramina. Normal lumbar lordosis. There is no substantial scoliosis. Normal conus medullaris that terminates at the mid L1 vertebral body level. L1-2: Normal endplates. Normal disc height, hydration and morphology. Normal bilateral facet joints. Normal central canal and bilateral lateral recesses. Normal bilateral intervertebral neural foramina. L2-3: Normal endplates. Normal disc height, hydration and morphology. Normal bilateral facet joints. Normal central canal and bilateral lateral recesses. Normal bilateral intervertebral neural foramina. L3-4: Normal endplates. Normal disc height, hydration and morphology. Normal bilateral facet joints. Normal central canal and bilateral lateral recesses. Normal bilateral intervertebral neural foramina. L4-5: Normal endplates. Normal disc height with moderate loss of disc hydration. Mild left degenerative facet arthropathy. Normal right facet joint. Normal central canal and bilateral lateral recesses. Normal bilateral intervertebral neural foramina. L5-S1: Normal endplates. Normal disc height, hydration and morphology. Normal bilateral facet joints. Normal central canal and bilateral lateral recesses. Normal bilateral intervertebral neural foramina. Normal visualized sacral ala. Normal visualized paraspinous soft tissue structures. MRI/Spine Lumbar (Routine) IMPRESSION: 1. No MRI evidence of lumbar extruded disc fragment, disc protrusion, spinal stenosis or nerve root displacement. 2. No significant interval change when compared to 09/15/2022. Electronically Signed: Xavier Whipple MD at 10:53 EDT Reading Location ID and State: [facility] / [place] , Service support , CC: YONATHAN Charles; Dr. Manny Wang DO Commercial Sales Consultant: Signed Normal [facility] Orthopedic Visit Reporton Orthopedic Visit Report [facility] [address] [place] [address] [address] [place] [address] OFFICE VISIT Date of Service: 05/06/23 MR#: [id number] Acct: [id number] Name: FRANTZ KAUFFMAN Rep #: [id number] : 1985 Provider: Dr. Manny morrell DO Age/Sex: 37/F Location: [facility] Status: Signed with Addenda ADDENDUM by KSENIA Winter on 05/13/23 at 1328 Assessment and Plan Assessment and Plan (1) Herniation of intervertebral disc between L4 and L5: Status: Acute (2) Annular tear of lumbar disc: Status: Acute Orders: Orders Spine Lumbar (Routine) 05/06/23 M51.26 - Other intervertebral disc displacement, lumbar region Plan Patient started in formal PT in June of 2022. She had 8 visits of PT and then continued with a HEP approximately 3 times per week. She continued with the HEP up until 04/14/2023 when she had a lumbar epidural steroid injection which made her pain worse. She has not been able to do her HEP since then. Dr. Wang is ordering an MRI due to the significant worsening. 05/13/23 1328 Date Aretha Schumacher cc: YONATHAN Charles * Signed Intake Vital Signs 07/15/22 14:45 Height 5 ft 1 in Weight: 205 lb BMI 38.7 Intake Visit Reasons: LUMBAR SPINE Chief Complaint: lumbar Accompanied by: Self Is patient in pain?: Yes Pain scale (1-10): 7 Allergies Dressing: Non-Medicated [bandaids] Allergy (Verified 12/25/22 12:58) Rash tramadol Allergy (Verified 08/12/22 14:42) Rash Medications cyclobenzaprine 7.5 mg tablet 7.5 mg PO QHS 07/15/22 [History Confirmed 05/06/23] oxycodone 5 mg tablet 5 mg PO BID PRN 07/15/22 [History Confirmed 05/06/23] buspirone 10 mg tablet mg PO 05/06/23 [History Confirmed 05/06/23] calcium carbonate 600 mg-vitamin D3 20 mcg (800 unit) tablet tab PO 05/06/23 [History Confirmed 05/06/23] cetirizine 10 mg tablet (All Day Allergy (cetirizine)) 10 mg PO DAILY 05/06/23 [History Confirmed 05/06/23] fluoxetine 20 mg capsule mg PO 05/06/23 [History Confirmed 05/06/23] fluoxetine 40 mg capsule 40 mg PO 05/06/23 [History Confirmed 05/06/23] fluticasone propionate 50 mcg/actuation nasal spray,suspension intranasal 05/06/23 [History Confirmed 05/06/23] montelukast 10 mg tablet mg PO 05/06/23 [History Confirmed 05/06/23] pantoprazole 40 mg tablet,delayed release mg PO 05/06/23 [History Confirmed 05/06/23] prazosin 1 mg capsule mg PO 05/06/23 [History Confirmed 05/06/23] red yeast rice 600 mg capsule 600 mg PO DAILY 05/06/23 [History Confirmed 05/06/23] rosuvastatin 20 mg tablet 20 mg PO 05/06/23 [History Confirmed 05/06/23] trazodone 50 mg tablet 50 mg PO 05/06/23 [History Confirmed 05/06/23] PFSH Medical History High blood pressure Lumbar sprain Surgical History Hx of section Hx of cholecystectomy Hx of tubal ligation Family History Other Breast cancer Hypercholesterolemia Hypertension Social History Smoking Status: Former smoker alcohol intake: current what type of physical activity do you participate in: walking HPI LUMBAR SPINE Details: Parts of this documentation were recorded by a scribe, this documentation accurately reflects the service provided and the decisions made by me, Dr. Manny Wang, DO 05/06/23 2322. FRANTZ KAUFFMAN is a 37 year old F here today for F/U after seeing Dr. Fonseca and having lumbar epidural steroid injections. She states that she had 1 injection 04/14/23 which was not helpful with the pain at all and has in fact made her pain worse. She continues to have left side rib pain and pain across the whole lower back that radiates into the BL buttock and she had BL leg pain into the feet, the left leg pain is more frequent than the right sided leg pain. She does have numbness and tingling down the left posterior leg into the foot. She has been taking cyclobenzaprine and oxycodone for her pain but this is not helpful with the pain. Frantz returns for follow-up. The therapy that we ordered late last year or perhaps earlier this year did not help her at all regarding her low back. She saw Dr. Fonseca and had an injection on the of last month. It was an epidural injection and it did not help her and in fact she thinks it actually made her worse. The pain that goes down both buttocks and both legs now which she never did before. Thus there has been a significant time interval change for the worse since her last MRI scan. On examination she can still stand on her toes and stand on her heels. She has pain with both flexion and extension of her lumbar spine. She has reasonable motor strengt (more content not included)... Normal [facility] ABDOMEN OR KUBon 11-25-2021 ABDOMEN OR KUB EXAMINATION: ABDOMEN OR KUB CLINICAL HISTORY: Kidney stones. Technique: AP views of the abdomen. Comparison: 11/10/2021 RESULT: Included lung bases are clear. Bowel gas is present in a nonspecific and nonobstructive pattern. Calcifications project over both kidneys and along the expected course of the left ureter at the level of L3-L4. The right kidney is limited by overlying stool. Tubal ligation clips are noted in the pelvis. IMPRESSION: Urinary tract calculi as above. This report was electronically signed by Esteban Richmond MD 11/25/2021 7:04 AM Reported By: ESTEBAN RICHMOND MD Signed By: ESTEBAN RICHMOND MD [facility] OR.OPRDarren 11-25-2021 Operative Report Normal [facility] OR.OPRPT [facility] Patient Name: FRANTZ SULTANA [address] Date of : [address] [address] Unit Number: [id number] Operative Report Patient Status: REG [facility] Attending Doctor: Lili Gates MD Service Date: 11/25/21816 Operative Report Procedure Date: 11/25/21 Attending Physician: Lili Gates MD Procedure: Preoperative Diagnosis: [] Left proximal ureteral stone Postoperative Diagnosis: [] Same Procedure Type: [] Left ESWL 2500 shocks and left 6 x 24 regular stent placement Anesthesia: [] LMA Estimated Blood Loss: [] Minimal IV Fluids: [] Urine Output: [] Complications: [] Findings/Specimens: [] Procedure Details: [] Patient was taken off proceed given anesthetic patient had bilateral nonobstructing renal stones that were difficult to see on the KUB the proximal ureteral stone 9 mm was seen. The patient then under biplanar fluoroscopic guidance with SCDs in place had a total of 2500 shocks given to that stone. After 600 shocks there appeared to be morphologic change to that stone. The patient then at the end was shifted down to the observe over the left renal area the patient body habitus and the gaseous state did not reveal an obvious stone that could be seen there was questionable stone on the KUB but this cannot be replicated under active fluoroscopy. Patient then was placed in dorsolithotomy prepped and draped and cystoscopy revealed normal bladder with no exophytic lesions masses or growths and a Glidewire was placed up the left ureteral orifice into the kidney. Over the wire a 6 x 24 regular stent was deployed coiling in the upper collecting system and bladder. We will check a KUB in the next 2 weeks and likely remove the stent. Summary: [] Disclaimer This dictation was created using voice recognition software. Phonetic and/or minor grammatical errors may exist. eSign Date and Time Lili Gates MD Verified/Reviewed by 11/25/21 1038 [facility] [id number] 11-25-2021 SARS-CoV-2 (COVID-19) RNA ANIRUDH+probe Ql (Unsp spec) Negative Invalid Interpretation Code Negative [facility] Comment on above: Order Comment: Rishi jean-baptiste: Ana Maria Result Comment: RESU LTS CALLED TO AND READ BACK BY Vern LIZAMA/BRIAN AT 0621 11/25/21 BY AROLDO FLEMING Negative results do not preclude SARS-CoV-2 infection and should not be used as the sole basis for treatment or other patient management decisions. Negative results must be combined with clinical observation, patient history, and epidemiological information. This test was performed by PCR. Performed By: #### L [phone] #### [facility] [address] [phone] ABDOMEN OR KUBon 11-10-2021 ABDOMEN OR KUB KUB: Clinical Statement: Kidney stones. Technologist sheet denotes left-sided kidney stone. Nausea. Comparison: KUB 07/09/2014. FINDINGS: Bowel gas overlies the right kidney. There are bilateral renal stones, more impressive on the right side.. No abnormal calcifications along the expected courses of the ureters. The osseous structures are unremarkable. Bilateral tubo-ovarian clips are identified. Normal bowel gas pattern. IMPRESSION: Nephrolithiasis. Dictated by Locks Tender: Caleb Awan MD I, Ricki Lombardi MD, have supervised the procedure and/or image review, and agree with the above interpretation and report. This report was electronically signed by Ricki Lombardi MD 11/10/2021 1:51 PM Reported By: RICKI LOMBARDI M.D. Signed By: RICKI LOMBARDI M.D. Normal [facility] EMERGENCY REPORTon 1 EMERGENCY REPORT [facility] EMERGENCY ROOM REPORT NAME ACCOUNT SEX AGE ADMIT DISCHARGE PT MED. RECORD# NUMBER DATE DATE TYPE FRANTZ SULTANA [id number] F 35 08/24/21 08/24/21 3 [id number] ROOM: ER DATE OF : 1985 DICTATING PHYSICIAN: Nneka Frazier HISTORY OF PRESENT ILLNESS: The patient is a 35-year-old female with no pertinent past medical history who is presenting to the emergency department for evaluation of throat pain. The patient states for the last 3 days she has had a sore throat. The patient states she feels like may be bronchitis as she intermittent loses her voice. The patient is still able to tolerate p.o., but states it hurts to swallow. The patient states her son has similar symptoms and he has been also not feeling well. She denies any fever or chills, recent sick contacts outside of her son or recent illness. The patient is not vaccinated against COVID-19 and states she does not think this is COVID-19 and she would not like swabbed. The patient denies any difficulty breathing or shortness of breath. The patient denies any shortness of breath or cough. The patient denies neck swelling or difficulty when she turns her neck. The patient denies any lightheadedness or focal or neurologic deficits. REVIEW OF SYSTEMS: A ten point review of systems completed, and all negative unless otherwise stated above. PHYSICAL EXAMINATION: GENERAL: The patient is in no acute distress and nontoxic appearing. HEENT: Head is normocephalic and atraumatic. Pupils are equal and reactive to light with extraocular movements intact. Conjunctivae clear. External auditory, TMs, and external ears are unremarkable bilaterally. Nares without any evidence of epistaxis, rhinorrhea, or congestion. Posterior oropharynx edematous with some erythema and exudate noted. Uvula is midline. No sublingual lingual or submandibular swelling. No tonsillar abscess appreciated. No pain on palpation of the mastoid process. No submandibular soft tissue changes or edema. NECK: Full range of motion of the neck with no cervical lymphadenopathy. No cervical spine tenderness. No nuchal rigidity. LUNGS: The patient is clear to auscultation bilaterally with no wheezing, rales, or rhonchi. The patient is saturating at 97% on room air, unlabored breathing without any retractions or tachypnea. CARDIOVASCULAR: Regular rate and rhythm with no murmurs, rubs, or gallops. Capillary refill is less than 2 throughout. DP, PT, and radial pulses 2+ bilaterally. ABDOMEN: The patient's abdomen is soft, nondistended, without any evidence of rigidity or guarding. EXTREMITIES: The patient had 5/5 strength in all 4 extremities through full range of motion with no evidence of sensory strength or two point discrimination deficits. PSYCHIATRIC: The patient is alert and oriented to person, place, and time. Cranial nerves II-XII are intact. NIH is 0. The patient ambulated without any evidence of dependence or ataxia. The patient has appropriate mood with appropriate thought content. Page 1 of 2 FRANTZ SULTANA Emergency Room Report FRANTZ SULTANA : 1985 DIAGNOSTIC DATA: The patient's rapid strep was negative; however, the patient is still having findings concerning for acute pharyngitis. MEDICAL DECISION MAKING/EMERGENCY DEPARTMENT COURSE AND TREATMENT: The patient is a 35-year-old female with a past medical history not pertinent presenting for 3 days of sore throat. Posterior oropharynx is unremarkable and most consistent with an acute pharyngitis with low suspicion for paratonsillar abscess, tonsillar abscess, Lemierre's, angioedema, anaphylaxis, or trauma. PLAN/DISPOSITION: The patient will get a strep test, will be given Decadron for swelling, and will be treated accordingly. Given the rapid is not that sensitive, we will empirically treat with amoxicillin 1 gram daily for 10 days. The patient is comfortable with this plan. The patient tolerated p.o. without difficulty. The patient is discharged home in stable condition to followup with her primary care physician in the next 2 to 3 days. I answered all of her questions to the best of my ability. The patient was discharged home in stable condition to self care. Dictated By: Nneka Frazier DO 08/24/21 21:16 JOB #: [id number] Transcribed By: liyah 08/25/21 14:10 Electronically signed by: Dr. Nneka Frazier DO 08/26/21 04:06 Page 2 of 2 FRANTZ SULTANA Emergency Room Report Normal [facility] CULT STREP REFLEX ONLYon CULT STREP REFLEX ONLY CULT STREP REFLEX ONLY _REFLEX STREP SCREEN CULTURE ONLY_ M I C R O B I O L O G Y R E P O R T FINAL Antimicrobial Susceptibility and Organism Identification Report Specimen Number : [id number] Requested : 08/24/21 Specimen Source : THROAT Collected : 08/24/21 20:25 [place] of Isolation : EMERGENCY ROOM Received : 08/24/21 20:25 Requesting Physician : YASMANI TEE Patient/Specimen Tests and Comments Specimen Comments FINAL REPORT: NEGATIVE FOR GROUP A BETA STREP Tech : Source : THROAT ID # : [id number] FINAL Report Date : / / : Collected : 08/24/21 20:25 08/26/21.1026.BKO. 08/26/21.1026.BKO.CO MPLETE Normal [facility] Comment on above: Performed By: #### [id number] #### [facility],[address] [place] [id number] RAPID STREPon 08-24-2021 S. pyogenes Ag IA Ql (Unsp spec) Rapid Strep NEG:GRP A STREP INTERNAL QC PASS EXTERNAL QC DONE? YES Normal [facility] Comment on above: Performed By: #### 2 [id number] #### [facility],[address] [place] [id number] Coronavirus 2019on 0 COVID 19 Source [employer] Normal [facility] Comment on above: Result Comment: CONTAINER SHOP WEL[employer] S WAB Called to and read back by: [facility] [id number] [place] COVID 19 Result [employer]TAIN[employer] Abnormal Negative for COVID19 (SARS CoV2) by PCR. [facility] Comment on above: Result Comment: Posi tive for This test was developed and its performance characteristics determined by [facility] [place]. This test has been authorized by FDA under an Emergency Use Authorization (EUA). This test has been validated in accordance with the FDA's Guidance Document Policy for Diagnostics Testing in Laboratories Certified to Perform High Complexity Testing under CLIA prior to Emergency use Authorization for Coronavirus Disease 2019 during the Public Health Emergency issued on October 28, 2019. COVID19 (SARS This test was developed and its performance characteristics determined by [facility] [place]. This test has been authorized by FDA under an Emergency Use Authorization (EUA). This test has been validated in accordance with the FDA's Guidance Document Policy for Diagnostics Testing in Laboratories Certified to Perform High Complexity Testing under CLIA prior to Emergency use Authorization for Coronavirus Disease 2019 during the Public Health Emergency issued on October 28, 2019. CoV2) by This test was developed and its performance characteristics determined by [facility] [place]. This test has been authorized by FDA under an Emergency Use Authorization (EUA). This test has been validated in accordance with the FDA's Guidance Document Policy for Diagnostics Testing in Laboratories Certified to Perform High Complexity Testing under CLIA prior to Emergency use Authorization for Coronavirus Disease 2019 during the Public Health Emergency issued on October 28, 2019. PCR.(*) This test was developed and its performance characteristics determined by [facility]. This test has been authorized by FDA under an Emergency Use Authorization (EUA). This test has been validated in accordance with the FDA's Guidance Document Policy for Diagnostics Testing in Laboratories Certified to Perform High Complexity Testing under CLIA prior to Emergency use Authorization for Coronavirus Disease 2019 during the Public Health Emergency issued on October 28, 2019. EMERGENCY REPORTon 8 EMERGENCY REPORT [facility] EMERGENCY ROOM REPORT NAME ACCOUNT SEX AGE ADMIT DISCHARGE PT MED. RECORD# NUMBER DATE DATE TYPE FRANTZ KAUFFMAN [id number] F 32 03/17/18 03/17/18 3 [id number] ROOM: ER DATE OF : 1985 DICTATING PHYSICIAN: Lili Carlos TIME SEEN: 2130 hours. HISTORY OF PRESENT ILLNESS: The patient is a 32-year-old white female complaining of a cough and chest congestion. She states that she gets some chest pressure with cough and at times it is hard to breathe. She is also complaining of a migraine headache for the past 2 to 3 days. She states that her symptoms are worse today and she actually has a sore throat and her throat feels dry. She has complained of some nausea. She denies any vomiting. PAST MEDICAL HISTORY: Environmental allergies. She has had walking pneumonia in the past. She states she gets bronchitis a lot. PAST SURGICAL HISTORY: Tubal ligation. ALLERGIES: She is allergic to tramadol. SOCIAL HISTORY: She is a smoker of 1/2 pack per day. She does admit to occasional alcohol use. REVIEW OF SYSTEMS: Denies any chest pain. She does admit to some shortness of breath and cough. She has complained of some chest pressure, but only with cough. She denies any sputum, wheezing, abdominal pain. She does admit to some nausea. She denies any vomiting. She denies any diarrhea, constipation, melena, hematochezia. She does admit to headache, which she describes as a migraine headache. She denies any numbness, unsteady gait, weakness, neck or back pain, joint pain, skin rashes, swelling, hives, hay fever, swollen glands. Further review of systems is negative. PHYSICAL EXAMINATION: Temperature 98.6, pulse 71, respirations 18, blood pressure 109/77, pulse oximetry 99%. The patient is alert and oriented x3. The patient is in no acute distress. Pleasant and cooperative. HEENT: Head appears atraumatic. Pupils are equal and reactive to light. Red reflex is intact bilaterally. Extraocular muscles are intact. No conjunctival injection. No scleral icterus or lid edema. TMs are intact bilaterally. No erythema noted. Nose exhibits no rhinorrhea or epistaxis. Mucous membranes are moist. Some diffuse pharyngeal erythema is noted with positive postnasal drainage. Uvula is midline and elevates. NECK: Supple. Trachea is midline. No JVD or lymphadenopathy. No posterior cervical tenderness. Page 1 of 2 FRANTZ KAUFFMAN Emergency Room Report No nuchal rigidity. LUNGS: Lungs demonstrate some mild bilateral expiratory wheeze. No accessory muscle use. CV: Heart rate and rhythm are regular without murmur. ABDOMEN: Soft, obese and nontender with normoactive bowel sounds x4 quadrants. No guarding or rigidity. No rebound. No palpable abdominal masses. No hepatosplenomegaly. BACK: No midline or paraspinal region tenderness. No increased paraspinal muscle rigidity. Negative Lloyds sign. EXTREMITIES: No edema or cyanosis. Peripheral pulses are intact. No motor or sensory deficits are noted. Hand cruise guide are strong and symmetric. SKIN: Skin is warm and dry. No diaphoresis or rash. NEURO: The patient is alert and oriented x4. No motor or sensory deficits noted. Speech is normal. EMERGENCY DEPARTMENT COURSE AND TREATMENT: The patient was given Zithromax 500 mg p.o. here and [place] 5/325 mg 1 p.o. here. I did give her one albuterol unit dose aerosol which did improve her wheezing considerably. I placed her on Zithromax 500 mg 1 p.o. daily, dispense #7 with no refill and an albuterol inhaler with AeroChamber 2 puffs, every 6 hours, dispense #1 with no refill; Tessalon Perles 200 mg 1 p.o. every 8 hours as needed for cough, dispense #30 with no refill. The patient is to rest, encourage fluids, take the medication as prescribed, and follow up with Tamika Marcial in 3 to 5 days for reevaluation. If her symptoms become worse or any other problems develop return to the emergency department. DIAGNOSIS: 1. Acute pharyngitis. 2. Bronchitis. 3. Migraine headache. PLAN/DISPOSITION: The patient was discharged in a clinically stable condition. Nursing notes were reviewed. Dictated By: Lili Carlos DO 03/17/18 23:00 JOB #: [id number] Transcribed By: merle 03/19/18 11:50 Electronically signed by: E-Sign: Dr. Lili Carlos D.O. 03/22/18 00:01 Page 2 of 2 KAUFFMAN FRANTZ Emergency Room Report Normal [facility] Vital Signs Date Time Vital Sign Value Performing Clinician Facility 03-26-2025 13:42-0400 Body height 154.94 cm Justa Ungerer [employer] Work Phone: [facility] 03-26-2025 13:42-0400 Body mass index (BMI) [Ratio] 42.5 kg/m2 Justa Ungerer [employer] Work Phone: [facility] 03-26-2025 13:42-0400 Body temperature 97.3 [degF] Justa Ungerer [employer] Work Phone: [facility] 03-26-2025 13:42-0400 Body weight 102.05 kg Justa Ungerer [employer] Work Phone: [facility] 03-26-2025 13:42-0400 Diastolic blood pressure 68 mm[Hg] Justa Ungerer [employer] Work Phone: [facility] 03-26-2025 13:42-0400 Heart rate 74 /min Justa Ungerer [employer] Work Phone: [facility] 03-26-2025 13:42-0400 Respiratory rate 18 /min Justa Ungerer [employer] Work Phone: [facility] 03-26-2025 13:42-0400 SaO2% (BldA) [Mass fraction] 95 % Justa Ungerer [employer] Work Phone: [facility] 03-26-2025 13:42-0400 Systolic blood pressure 132 mm[Hg] Justa Ungerer [employer] Work Phone: [facility] 12-29-2024 12:05-0400 Body temperature 96.26 [degF] LILI NGO MD [facility] 12-29-2024 12:05-0400 Diastolic Blood Pressure Non-Invasive 75 mm[Hg] LILI NGO MD [facility] 12-29-2024 12:05-0400 Heart rate 55 /min LILI NGO MD [facility] 12-29-2024 12:05-0400 Respiratory rate 18 /min LILI NGO MD [facility] 12-29-2024 12:05-0400 Systolic Blood Pressure Non-Invasive 111 mm[Hg] LILI NGO MD [facility] 12-29-2024 11:53-0400 Body temperature 97.16 [degF] LILI NGO MD [facility] 12-29-2024 11:53-0400 Diastolic Blood Pressure Non-Invasive 75 mm[Hg] LILI NGO MD [facility] 12-29-2024 11:53-0400 Heart rate 61 /min LILI NGO MD [facility] 12-29-2024 11:53-0400 Mean blood pressure 89 mm[Hg] LILI NGO MD [facility] 12-29-2024 11:53-0400 Respiratory rate 18 /min LILI NGO MD [facility] 12-29-2024 11:53-0400 Systolic Blood Pressure Non-Invasive 114 mm[Hg] LILI NGO MD [facility] 12-29-2024 11:38-0400 Diastolic Blood Pressure Non-Invasive 79 mm[Hg] LILI NGO MD [facility] 12-29-2024 11:38-0400 Heart rate 62 /min LILI NGO MD [facility] 12-29-2024 11:38-0400 Mean blood pressure 93 mm[Hg] LILI NGO MD [facility] 12-29-2024 11:38-0400 Respiratory rate 18 /min LILI NGO MD [facility] 12-29-2024 11:38-0400 Systolic Blood Pressure Non-Invasive 119 mm[Hg] LILI NGO MD [facility] 12-29-2024 11:23-0400 Body temperature 96.8 [degF] LILI NGO MD [facility] 12-29-2024 11:23-0400 Heart rate 78 /min LILI NGO MD [facility] 12-29-2024 11:23-0400 Mean blood pressure 103 mm[Hg] LILI NGO MD [facility] 12-29-2024 11:20-0400 Respiratory Rate - Anes 7 br/min LILI NGO MD [facility] 12-29-2024 11:15-0400 Body temperature 97.07 [degF] LILI NGO MD [facility] 12-29-2024 11:15-0400 Respiratory Rate - Anes 9 br/min LILI NGO MD [facility] 12-29-2024 11:10-0400 Body temperature 97.21 [degF] LILI NGO MD [facility] 12-29-2024 11:10-0400 Respiratory Rate - Anes 8 br/min LILI NGO MD [facility] 12-29-2024 11:05-0400 Body temperature 97.3 [degF] LILI NGO MD [facility] 12-29-2024 07:45-0400 Body height 154.9 cm LILI NGO MD [facility] 12-29-2024 07:45-0400 Body weight 108.8 kg LILI NGO MD [facility] 12-29-2024 07:45-0400 Heart rate 58 /min LILI NGO MD [facility] 12-22-2024 11:56-0400 Body height 155 cm LILI NGO MD [facility] 12-22-2024 11:56-0400 Body temperature 97.16 [degF] LILI NGO MD [facility] 12-22-2024 11:56-0400 Body weight 108 kg LILI NGO MD [facility] 12-22-2024 11:56-0400 Body weight 44.95 kg/m2 LILI NGO MD [facility] 12-22-2024 11:56-0400 Diastolic Blood Pressure Non-Invasive 80 mm[Hg] LILI NGO MD [facility] 12-22-2024 11:56-0400 Heart rate 69 /min LILI NGO MD [facility] 12-22-2024 11:56-0400 Systolic Blood Pressure Non-Invasive 120 mm[Hg] LILI NGO MD [facility] 03-03-2024 16:05-0400 Body temperature 97.88 [degF] LILI NGO MD [facility] 03-03-2024 16:05-0400 Diastolic Blood Pressure Non-Invasive 80 mm[Hg] LILI NGO MD [facility] 03-03-2024 16:05-0400 Heart rate 76 /min LILI NGO MD [facility] 03-03-2024 16:05-0400 Reason For Taking VItal Signs LILI NGO MD [facility] 03-03-2024 16:05-0400 Respiratory rate 16 /min LILI NGO MD [facility] 03-03-2024 16:05-0400 Systolic Blood Pressure Non-Invasive 112 mm[Hg] LILI NGO MD [facility] 03-03-2024 15:47-0400 Body temperature 97.16 [degF] LILI NGO MD [facility] 03-03-2024 15:47-0400 Diastolic Blood Pressure Non-Invasive 76 mm[Hg] LILI NGO MD [facility] 03-03-2024 15:47-0400 Heart rate 78 /min LILI NGO MD [facility] 03-03-2024 15:47-0400 Mean blood pressure 91 mm[Hg] LILI NGO MD [facility] 03-03-2024 15:47-0400 Respiratory rate 18 /min LILI NGO MD [facility] 03-03-2024 15:47-0400 Systolic Blood Pressure Non-Invasive 129 mm[Hg] LILI NGO MD [facility] 03-03-2024 15:32-0400 Diastolic Blood Pressure Non-Invasive 72 mm[Hg] LILI GNO MD [facility] 03-03-2024 15:32-0400 Heart rate 92 /min LILI NGO MD [facility] 03-03-2024 15:32-0400 Mean blood pressure 83 mm[Hg] LILI NGO MD [facility] 03-03-2024 15:32-0400 Respiratory rate 18 /min LILI NGO MD [facility] 03-03-2024 15:32-0400 Systolic Blood Pressure Non-Invasive 105 mm[Hg] LILI NGO MD [facility] 03-03-2024 15:17-0400 Heart rate 67 /min LILI NGO MD [facility] 03-03-2024 15:17-0400 Mean blood pressure 89 mm[Hg] LILI NGO MD [facility] 03-03-2024 15:02-0400 Body temperature 96.8 [degF] LILI NGO MD [facility] 03-03-2024 15:00-0400 Respiratory Rate - Anes 0 br/min LILI NGO MD [facility] 03-03-2024 14:55-0400 Body temperature 97.2 [degF] LILI NGO MD [facility] 03-03-2024 14:55-0400 Respiratory Rate - Anes 11 br/min LILI NGO MD [facility] 03-03-2024 14:50-0400 Body temperature 97.41 [degF] LILI NGO MD [facility] 03-03-2024 14:50-0400 Respiratory Rate - Anes 11 br/min LILI NGO MD [facility] 03-03-2024 14:45-0400 Body temperature 97.34 [degF] LILI NGO MD [facility] 03-03-2024 11:00-0400 Body height 154.9 cm LILI NGO MD [facility] 03-03-2024 11:00-0400 Body weight 101.6 kg LILI NGO MD [facility] 03-03-2024 11:00-0400 Heart rate 53 /min LILI NGO MD [facility] 02-21-2024 12:15-0400 Blood Pressure Cuff Size LILI NGO MD [facility] 02-21-2024 12:15-0400 Blood Pressure Location LILI NGO MD [facility] 02-21-2024 12:15-0400 Blood Pressure Method LILI NGO MD [facility] 02-21-2024 12:15-0400 Body height 152.4 cm LILI NGO MD [facility] 02-21-2024 12:15-0400 Body temperature 99.32 [degF] LILI NGO MD [facility] 02-21-2024 12:15-0400 Body weight 102.6 kg LILI NGO MD [facility] 02-21-2024 12:15-0400 Diastolic Blood Pressure Non-Invasive 85 mm[Hg] LILI NGO MD [facility] 02-21-2024 12:15-0400 Heart rate 58 /min LILI NGO MD [facility] 02-21-2024 12:15-0400 Systolic Blood Pressure Non-Invasive 135 mm[Hg] LILI NGO MD [facility] Encounters Encounter Date Encounter Type Care Provider Facility Start: 03-26-2025 Patient encounter procedure Justa Shavonner [employer] [employer] Start: 03-26-2025 End: 03-26-2025 ambulatory Justa Marvinr [employer] Work Phone: [facility] Start: 03-26-2025 End: 03-26-2025 Patient encounter procedure Justa Marvinr [employer] Work Phone: Start: 03-01-2025 End: 03-01-2025 Emergency department patient visit MARVIN WEISS [facility] Start: 02-26-2025 End: 02-26-2025 Emergency department patient visit JUAN MANUEL HOLGUIN [facility] Start: 01-18-2025 End: 01-18-2025 ambulatory LILI NGO MD Facility:A Start: 12-29-2024 End: 12-29-2024 ambulatory LILI NGO MD Facility:A Start: 12-29-2024 End: 12-29-2024 SAME DAY STAY LILI NGO MD [facility] Start: 12-22-2024 End: 12-22-2024 Admission to establishment LILI NGO MD [facility] Start: 12-22-2024 End: 12-22-2024 ambulatory LILI NGO MD Facility:A Start: 12-12-2024 End: 12-12-2024 ambulatory VERONICA SALDIVAR TRAFFIC ENGINEERING DIRECTOR-SENIOR ENVIRONMENTAL PRACTICE LEADER Facility:A Start: 12-12-2024 End: 12-12-2024 Patient encounter procedure VERONICA SALDIVAR TRAFFIC ENGINEERING DIRECTOR-SENIOR ENVIRONMENTAL PRACTICE LEADER [employer] [facility] Start: 12-10-2024 End: 12-10-2024 Emergency department patient visit JUAN MANUEL HOLGUIN [facility] Start: 10-20-2024 End: 10-20-2024 Emergency department patient visit TAMIKA KNIGHT [facility] Start: 10-04-2024 End: 10-04-[address] [facility] Start: 09-27-2024 End: 09-27-2024 ambulatory JUSTA CHARLES TRAFFIC ENGINEERING DIRECTOR-SENIOR ENVIRONMENTAL PRACTICE LEADER Facility:A Start: 09-27-2024 End: 09-27-2024 Patient encounter procedure LILI NGO MD [facility] Start: 09-22-2024 End: 09-22-2024 ambulatory LILI NGO [facility] Start: 03-29-2024 End: 03-29-2024 ambulatory LILI NGO MD Facility:A Start: 03-29-2024 End: 03-29-2024 Patient encounter procedure LILI NGO MD [employer] [facility] Start: 03-15-2024 End: 03-15-2024 ambulatory RENETTA NEWTON [facility] Start: 03-03-2024 End: 03-03-2024 ambulatory LILI NGO MD Facility:A Start: 03-03-2024 End: 03-03-2024 SAME DAY STAY LILI NGO MD [employer] Start: 02-21-2024 End: 02-25-2024 ambulatory VERONICA SALDIVAR TRAFFIC ENGINEERING DIRECTOR-SENIOR ENVIRONMENTAL PRACTICE LEADER Facility:A Start: 02-21-2024 End: 02-21-2024 Admission to establishment LILI NGO MD [employer] [facility] Start: 02-21-2024 End: 02-21-2024 ambulatory LILI NGO MD Facility:A Start: 02-21-2024 End: 02-21-2024 ambulatory VERONICAEBENEZER SALDIVAR TRAFFIC ENGINEERING DIRECTOR-SENIOR ENVIRONMENTAL PRACTICE LEADER Facility:A Start: 02-21-2024 End: 02-21-2024 Patient encounter procedure VERONICA SALDIVAR TRAFFIC ENGINEERING DIRECTOR-SENIOR ENVIRONMENTAL PRACTICE LEADER [facility] Start: 01-25-2024 End: 01-25-2024 ambulatory VERONICA Hernesto SALDIVAR TRAFFIC ENGINEERING DIRECTOR-SENIOR ENVIRONMENTAL PRACTICE LEADER Facility:A Start: 01-25-2024 End: 01-25-2024 Patient encounter procedure VERONICA SALDIVAR TRAFFIC ENGINEERING DIRECTOR-SENIOR ENVIRONMENTAL PRACTICE LEADER [facility] Start: 01-19-2024 End: 01-19-2024 ambulatory VERONICA Hernesto SALDIVAR TRAFFIC ENGINEERING DIRECTOR-SENIOR ENVIRONMENTAL PRACTICE LEADER Facility:A Start: 01-19-2024 End: 01-19-2024 Patient encounter procedure VERONICA SALDIVAR TRAFFIC ENGINEERING DIRECTOR-SENIOR ENVIRONMENTAL PRACTICE LEADER [facility] Start: 12-27-2023 Telephone encounter Urology (History ) Urology Comment on above: records request Start: 12-21-2023 End: 12-21-2023 ambulatory VERONICA SALDIVAR TRAFFIC ENGINEERING DIRECTOR-SENIOR ENVIRONMENTAL PRACTICE LEADER Facility:A Start: 06-15-2023 End: 06-15-2023 ambulatory Justa Ungerer Facility:[facility] Start: 06-11-2023 End: 06-11-2023 ambulatory Justa Ungerer Facility:[facility] Start: 06-02-2023 End: 06-02-2023 ambulatory Manny Wang Facility:[facility] Start: 05-06-2023 End: 05-06-2023 ambulatory Justa Ungerer Facility:[facility] Start: 11-25-2021 End: 11-25-2021 Subsequent hospital visit by physician Lili Gates MD Work Phone: [facility] Comment on above: [facility] Start: 11-10-2021 End: 11-10-2021 Subsequent hospital visit by physician Lili Gates Work Phone: [facility] Comment on above: N20.0 Start: 08-24-2021 End: 08-24-2021 Emergency department patient visit TAMIKA EUGENE MARCIAL [facility] Start: 05-12-2018 End: 05-12-2018 Patient encounter DESI VILLEDA [facility] Start: 03-17-2018 End: 03-18-2018 Emergency department patient visit LILI GARCIA [facility] Procedures Date Procedure Procedure Detail Performing Clinician Start: 03-01-2025 Urinalysis TAMIKA MILTON Comment on above: Result Comment: URIN ALYSIS Performed By: [id number] #### [facility],[address] [place] [address] Start: 12-10-2024 End: 12-10-2024 Urinalysis TAMIKASUKUMAR MARCIAL Comment on above: Result Comment: URIN ALYSIS Performed By: [id number] #### [facility],[address] [place] [address] Performed By: [id number] ####[facility],[address] [place] [address] Start: 03-03-2024 Cystoscopy LILI NGO MD Start: 11-25-2022 Lithotripsy VERONICA MCKENZIE TRAFFIC ENGINEERING DIRECTOR-SENIOR ENVIRONMENTAL PRACTICE LEADER Start: 08-30-2014 Extraction of wisdom tooth LILI NGO MD Start: 08-30-2012 Ligation of fallopian tube LILI NGO MD Start: 08-30-2005 Cholecystectomy LILI CHACON MD section LILI NGO MD section LILI NGO MD Comment on above: Cholecystectomy VERONICA KLINE TRAFFIC ENGINEERING DIRECTOR-SENIOR ENVIRONMENTAL PRACTICE LEADER Ligation of fallopian tube A LEEANNE SALDIVAR TRAFFIC ENGINEERING DIRECTOR-SENIOR ENVIRONMENTAL PRACTICE LEADER Oral surgery (qualif ier value) VERONICA SALDIVAR TRAFFIC ENGINEERING DIRECTOR-SENIOR ENVIRONMENTAL PRACTICE LEADER Tooth extraction, co mplete upper LILI NGO MD Plan of Treatment Date Care Activity Detail Author Start: 03-26-2025 CBC W Auto Different ial panel - Blood [facility] Start: 03-26-2025 Comprehensive metabo lic 2000 panel - Serum or Plasma [facility] Start: 03-26-2025 Hemoglobin A1c/Hemog lobin.total in Blood [facility] Start: 03-26-2025 Lipid 1996 panel - Serum or Plasma [facility] Start: 03-26-2025 T4 free measurement [facility] Start: 03-26-2025 Thyroid stimulating hormone measurement [facility] Start: 03-26-2025 Triiodothyronine, free measurement [facility] Start: 03-26-2025 Urate [Mass/volume] in Serum or Plasma [facility] Alanine aminotransfe rase [Enzymatic activity/volume] in Serum or Plasma [facility] Albumin [Mass/volume ] in Serum or Plasma [facility] Alkaline phosphatase [Enzymatic activity/volume] in Serum or Plasma [facility] Anion gap in Serum or Plasma [facility] Bilirubin, total measurement [facility] BUN/Creatinine ratio [facility] Calcium [Mass/volume ] in Serum or Plasma [facility] Carbon dioxide, tota l [Moles/volume] in Central venous blood [facility] Cholesterol [Mass/vo lume] in Serum or Plasma [facility] Cholesterol in HDL [ Mass/volume] in Serum or Plasma [facility] Creatinine [Mass/vol ume] in Serum or Plasma [facility] Erythrocyte mean cor puscular volume determination [facility] Glucose [Mass/volume ] in Serum or Plasma [facility] Hematocrit [Volume F raction] of Blood [facility] Hemoglobin [Mass/volume] in Blood [facility] Leukocytes [#/volume] in Blood [facility] Low density lipoprot ein cholesterol measurement [facility] Mean corpuscular hem oglobin concentration determination [facility] Mean corpuscular hem oglobin determination [facility] Measurement of renal function [facility] Neutrophil count [facility] Neutrophil percent d ifferential count [facility] Platelets [#/volume] in Blood [facility] Potassium measurement [facility] Red blood cell count [facility] Red cell distributio n width determination [facility] Serum chloride measurement [facility] Sodium measurement [facility] Total cholesterol:HD L ratio measurement [facility] Total protein measurement [facility] Triglycerides measurement [facility] Urea nitrogen [Mass/ volume] in Serum or Plasma [facility] VLDL cholesterol measurement [facility] Immunizations Immunization Date Immunization Notes Care Provider [facility] 05-12-1999 hepatitis B pediatri c vaccine LILI NGO MD [facility] 04-07-1999 hepatitis B pediatri c vaccine LILI NGO MD [facility] 04-07-1999 measles/mumps/rubell a virus vaccine LILI NGO MD [facility] 01-29-1988 measles/mumps/rubell a virus vaccine LILI NGO MD [facility] Payers Date Payer Category Payer Unknown [id number] 2023 Self-pay 2023 Unknown [id number] 1986 Unknown [id number] 2.16.84 [id number] 1986 Unknown [id number] 2.16.8 40.1.315204.3.579.2.627 1986 Unknown [id number] 2.16.8 40.1.902344.3.579.2. 1986 Unknown [id number] 2.16.8 40.1.973462.3.579.2.627 1986 Unknown [id number] 2.16.8 40.1.632767.3.579.2.627 1986 Unknown [id number] 2.16.8 40.1.990186.3.579.2.627 1986 Unknown [id number] 2.16.8 40.1.212771.3.579.2.627 1986 Unknown [id number] 2.16.8 40.1.936046.3.579.2.627 1986 Unknown [id number] 2.16.8 40.1.806825.3.579.2.627 1986 Unknown [id number] 2.16.8 40.1.560400.3.579.2.627 1986 Unknown [id number] 2.16.8 40.1.825808.3.579.2.627 1986 Unknown [id number] 2.16.8 40.1.718820.3.579.2.627 1986 Unknown [id number] 2.16.8 40.1.482014.3.579.2.627 1986 Unknown [id number] 2.16.8 40.1.250695.3.579.2.627 1986 Unknown [id number] 2.16.8 40.1.615591.3.579.2.651 1986 Unknown [id number] 2.16.8 40.1.009572.3.579.2.651 1986 Unknown [id number] 2.16.8 40.1.899306.3.579.2.651 1986 Unknown [id number] 2.16.8 40.1.710133.3.579.2.651 1986 Unknown [id number] 2.16.8 40.1.863876.3.579.2.651 1986 Unknown [id number] 2.16.8 40.1.760184.3.579.2.651 1986 Unknown [id number] 2.16.8 40.1.456366.3.579.2.651 Unknown [id number] 2.16.8 40.1.115986.3.579.2.462 Unknown [id number] 2.16.8 40.1.561879.3.579.2.462 Unknown [id number] 2.16.8 40.1.104662.3.579.2.462 Unknown [id number] 2.16.8 40.1.840040.3.579.2.462 Unknown [id number] 2.16.8 40.1.134607.3.579.2.462 Unknown [id number] 2.16.8 40.1.470254.3.579.2.462 Social History Date Type Detail Facility Tobacco smoking status LAIS Tobacco smoking consumption unknown [facility] Start: 1985 Sex Assigned At Not on file [facility] Gender identity Not on file [facility] Start: 12-21-2023 End: 03-26-2025 Tobacco smoking status Light tobacco smoker (finding) [facility] Sex Assigned At [facility] Start: 11-13-2016 Sex Female (finding) [facility] Start: 1985 Sex Assigned At Female [facility] Functional Status Date Assessment Result Facility 12-29-2024 Functional Status Awake [facility] 12-29-2024 Functional Status [facility] 12-29-2024 Functional Status Maintained [facility] 12-22-2024 Functional Status Sensory Deficits None [facility] 03-03-2024 Functional Status Awake, Up to bathroom [facility] 03-03-2024 Functional Status [facility] 03-03-2024 Functional Status Maintained [facility] 02-21-2024 Functional Status Sensory Deficits None [facility] Mental Status Date Assessment Result Facility 12-29-2024 Mental Status Oriented x 4 [facility] 12-29-2024 Mental Status [facility] 12-29-2024 Mental Status Orientation Assessment Orie nted x 4 [facility] 03-03-2024 Mental Status Oriented x 4 [facility] 03-03-2024 Mental Status [facility] Clinical Notes 12-27-2023 to 03-26-2025 Note Date & Type Note Facility 03-26-2025 Evaluation note Diagnosis Onset Date Resolution Annular tear of lumbar disc acute March 26, 2025 1:23pm Bipolar 1 disorder acute February 282024 1:23pm Encounter to establish care with new provider acute March 26 1:23pm Herniation of intervertebral disc between L4 and L5 acute March 26, 2025 1:23pm Hypercholesterolemia acute March 26, 2025 1:23pm [facility] [facility] Work Phone: [phone]) 842-383705-02-2025 Hospital Discharge instructions Patient Education 12/29/2024 12:35:09 Ureteral Stent Implantation, Care After Ureteral Stent Implantation, Care After This sheet gives you information about how to care for yourself after your procedure. Your health care provider may also give you more specific instructions. If you have problems or questions, contact your health care provider. What can I expect after the procedure? After the procedure, it is common to have: Nausea. Mild pain when you urinate. You may feel this pain in your lower back or lower abdomen. The pain should stop within a few minutes after you urinate. This may last for up to 1 week. A small amount of blood in your urine for several days. Follow these instructions at home: Medicines Take rrkx-ylt-tlssmoz and prescription medicines only as told by your health care provider. If you were prescribed an antibiotic medicine, take it as told by your health care provider. Do notstop taking the antibiotic even if you start to feel better. Do not drive for 24 hours if you were given a sedative during your procedure. Ask your health care provider if the medicine prescribed to you requires you to avoid driving or using heavy machinery. Activity Rest as told by your health care provider. Avoid sitting for a long time without moving. Get up to take short walks every 1 2 hours. This is important to improve blood flow and breathing. Ask for help if you feel weak or unsteady. Return to your normal activities as told by your health care provider. Ask your health care provider what activities are safe for you. General instructions Watch for any blood in your urine. Call your health care provider if the amount of blood in your urine increases. If you have a catheter: ?Follow instructions from your health care provider about taking care of your catheter and collection bag. ?Do not take baths, swim, or use a hot tub until your health care provider approves. Ask your health care provider if you may take showers. You may only be allowed to take sponge baths. Drink enough fluid to keep your urine pale yellow. Do not use any products that contain nicotine or tobacco, such as cigarettes, e- cigarettes, and chewing tobacco. These can delay healing after surgery. If you need help quitting, ask your health careprovider. Keep all follow-up visits as told by your health care provider. This is important. Contact a health care provider if: You have pain that gets worse or does not get better with medicine, especially pain when you urinate. You have difficulty urinating. You feel nauseous or you vomit repeatedly during a period of more than 2 days after the procedure. Get help right away if: Your urine is dark red or has blood clots in it. You are leaking urine (have incontinence). The end of the stent comes out of your urethra. You cannot urinate. You have sudden, sharp, or severe pain in your abdomen or lower back. You have a fever. You have swelling or pain in your legs. You have difficulty breathing. Summary After the procedure, it is common to have mild pain when you urinate that goes away within a few minutes after you urinate. This may last for up to 1 week. Watch for any blood in your urine. Call your health care provider if the amount of blood in your urine increases. Take ikpi-jsu-tjdabcr and prescription medicines only as told by your health care provider. Drink enough fluid to keep your urine pale yellow. This information is not intended to replace advice given to you by your health care provider. Make sure you discuss any questions you have with your health care provider. Document Released: 04/18/2014 Document Revised: 05/23/2019 Document Reviewed: 05/24/2019 [employer] Patient Education 2020 [email or web address]. 12/29/2024 12:35:09 Laser Therapy for Kidney Stones, Care After Laser Therapy for Kidney Stones, Care After This sheet gives you information about how to care for yourself after your procedure. Your health care provider may also give you more specific instructions. If you have problems or questions, contact your health care provider. What can I expect after the procedure? After the procedure, it is common to have: Pain. A burning sensation while urinating. Small amounts of blood in your urine. A need to urinate frequently. Pieces of kidney stone in your urine. Mild discomfort when urinating that may be felt in the back. You may experience this if you have a flexible tube (stent) in your ureter. Follow these instructions at home: Medicines Take vpya-znz-jrzuovy and prescription medicines only as told by your health care provider. If you were prescribed an antibiotic medicine, take it as told by your health care provider. Do notstop taking the antibiotic even if you start to feel better. Ask your health care provider if the medicine prescribed to you: ?Requires you to avoid driving or using heavy machinery. ?Can cause constipation. You may need to take actions to prevent or treat constipation, such as: ?Take bwog-sbu-ijrgfgq or prescription medicines. ?Eat foods that are high in fiber, such as beans, whole grains, and fresh fruits and vegetables. ?Limit foods that are high in fat and processed sugars, such as fried or sweet foods. Activity Return to your normal activities as told by your health care provider. Ask your health care provider what activities are safe for you. Do not drive for 24 hours if you were given a sedative during your procedure. General instructions If your health care provider approves, you may take a warm bath to ease discomfort and burning. Drink enough fluid to keep your urine pale yellow. Your health care provider may recommend drinkingtwo 8 oz (237 mL) glasses of water per hour for a few hours after your procedure. You may be asked to strain your urine to collect any stone fragments that you pass. These fragmentsmay be tested. Keep all follow-up visits as told by your health care provider. This is important. If you have a stent, you will need to return to your health care provider to have the stent removed. Contact a health care provider if you: Have pain or a burning feeling that lasts more than 2 days. Feel nauseous. Vomit more and more often. Have difficulty urinating. Have pain that gets worse or does not get better with medicine. Get help right away if: You are unable to urinate, even if your bladder feels full. You have: ?Bright red blood or blood clots in your urine. ?More blood in your urine. ?Severe pain or discomfort. ?A fever or shaking chills. ?Abdominal pain. ?Difficulty breathing. ?Swelling in your legs. Summary After the procedure, it is common to have a burning sensation while urinating and small amounts of blood in your urine. Take ibuu-dcf-coaddxe and prescription medicines only as told by your health care provider. Drink enough fluid to keep your urine pale yellow. Keep all follow-up visits as told by your health care provider. This is important. This information is not intended to replace advice given to you by your health care provider. Make sure you discuss any questions you have with your health care provider. Document Released: 09/11/2016 Document Revised: 04/27/2019 Document Reviewed: 04/27/2019 [employer] Patient Education 2020 51edj. 12/29/2024 12:35:09 1-SDS Discharge Instructions Template (05/2018) (CUSTOM) [place] SAME DAY SURGERY DISCHARGE INSTRUCTIONS PLEASE FOLLOW THE INSTRUCTIONS BELOW MARKED WITH AN X: _x__ Regular Diet: Start with clear liquids, then soup and crackers and gradually add other foods. _x__ Drink extra fluids. ___ Special Diet Instructions: ___ ACTIVITY: _x__ Avoid stress to suture line. Since you have had an anesthetic, it would be advisable not to drive, drink alcohol, or make major decisions over the next 24 hours. You may require more rest tonight and tomorrow. ___ May resume regular activity as tolerated. ___ Restrict activity as follows: ___ ___ Walk Only ___ ___ Do not go up and down stairs. ___ Do not ride in car until ___ ___ Do not drive car. _x__ Do not have sexual intercourse. _x__ No heavy lifting, pushing or straining. _x__ Other: _Follow all verbal and written orders given by Dr. Ngo.__ BATHING/SHOWERING: ___ Sponge bathe until office visit. ___ Sitting in tub of warm water may relieve discomfort. ___ May tub bathe _x__ May shower ___ On day after surgery sit in tub of warm water to soak off dressing. DRESSING: ___ Keep operative area dry and clean for ___ ___ Check the operative area for signs of bleeding. Apply pressure to the bleeding site if necessary and call your physician. ___ Change dressing as necessary using sterile dressing material or bandaid. ___ Reinforce dressing as necessary. ___ Change and care for wound as follows: ___ ___ Wear bra for ___ days following breast surgery for comfort. ___ Change drip pad as needed. ___ Wear scrotal support for comfort. WATCH FOR SIGNS OF INFECTION: (Usually appears 36-48 hours after surgery) Increased temperature (101 degrees Fahrenheit or higher) Redness or swelling Increased pain Foul odor or drainage. If you have any questions, please call your doctor at the number listed on your follow up instructions. Follow all instructions given to you by your physician. Please complete and return the survey you will be receiving in the mail to help us better serve our patients. Form: 1522 ([id number]) R: 12/06 Follow Up Care 12/12/2024 13:30:51 With:LILI NGO MD, [facility] Address: [address] [place] [address] [place] [address] [phone] When: Unknown Comments:follow up in 2 weeks for stent removal [facility] 05-02-2025 Evaluation + Plan noteExtracted from: Title:Office Visit Note Author:LILI NGO MD Date:12/29/24 1. Ureteral calculus pt here for left ureteoscopy and laser lithotripsy. Future Scheduled Tests Laboratory* Urine Culture 01/25/24 Radiology* XR Abdomen AP 09/29/24 [facility] 05-02-2025 Anesthesiology Consult note Patient: FRANTZ KAUFFMAN Age: 39 years Sex: Female : 1985 Associated Diagnoses: None Author: EBER HOLLAND MD Postoperative Information Post Operative Info: Post op day: Post Anesthesia Care Unit. Patient location: PACU. Assessment Postanesthesia assessment Vitals: Vital signs from flowsheet : Vital Signs 12/29/2024 12:05 EDT Temperature Temporal Artery 35.7 DegC Peripheral Pulse Rate 55 bpm LOW Respiratory Rate 18 br/min Systolic Blood Pressure Non-Invasive 111 mmHg Diastolic Blood Pressure Non-Invasive 75 mmHg 12/29/2024 11:53 EDT Temperature Temporal Artery 36.2 DegC Heart Rate Monitored 61 bpm Respiratory Rate 18 br/min Systolic Blood Pressure Non-Invasive 114 mmHg Diastolic Blood Pressure Non-Invasive 75 mmHg Mean Arterial Pressure (NBP) 89 mmHg 12/29/2024 11:38 EDT Heart Rate Monitored 62 bpm Respiratory Rate 18 br/min Systolic Blood Pressure Non-Invasive 119 mmHg Diastolic Blood Pressure Non-Invasive 79 mmHg Mean Arterial Pressure (NBP) 93 mmHg 12/29/2024 11:23 EDT Temperature Temporal Artery 36 DegC Heart Rate Monitored 78 bpm Respiratory Rate 16 br/min Systolic Blood Pressure Non-Invasive 136 mmHg Diastolic Blood Pressure Non-Invasive 94 mmHg HI Mean Arterial Pressure (NBP) 103 mmHg 12/29/2024 11:20 EDT Heart Rate Monitored 63 bpm bpm Respiratory Rate - Anes 7 br/min br/min 12/29/2024 11:19 EDT Systolic Blood Pressure Non-Invasive 103 mmHg mmHg Diastolic Blood Pressure Non-Invasive 70 mmHg mmHg 12/29/2024 11:16 EDT Systolic Blood Pressure Non-Invasive 99 mmHg mmHg Diastolic Blood Pressure Non-Invasive 59 mmHg mmHg 12/29/2024 11:15 EDT Temperature (Route Not Specified) 36.15 DegC DegC Heart Rate Monitored 60 bpm bpm Respiratory Rate - Anes 9 br/min br/min 12/29/2024 11:13 EDT Systolic Blood Pressure Non-Invasive 103 mmHg mmHg Diastolic Blood Pressure Non-Invasive 62 mmHg mmHg 12/29/2024 11:10 EDT Temperature (Route Not Specified) 36.23 DegC DegC Heart Rate Monitored 61 bpm bpm Respiratory Rate - Anes 8 br/min br/min Systolic Blood Pressure Non-Invasive 102 mmHg mmHg Diastolic Blood Pressure Non-Invasive 62 mmHg mmHg 12/29/2024 11:07 EDT Systolic Blood Pressure Non-Invasive 101 mmHg mmHg Diastolic Blood Pressure Non-Invasive 64 mmHg mmHg 12/29/2024 11:05 EDT Temperature (Route Not Specified) 36.28 DegC DegC Heart Rate Monitored 56 bpm bpm Respiratory Rate - Anes 9 br/min br/min 12/29/2024 11:04 EDT Systolic Blood Pressure Non-Invasive 98 mmHg mmHg Diastolic Blood Pressure Non-Invasive 62 mmHg mmHg 12/29/2024 11:01 EDT Systolic Blood Pressure Non-Invasive 99 mmHg mmHg Diastolic Blood Pressure Non-Invasive 63 mmHg mmHg 12/29/2024 11:00 EDT Temperature (Route Not Specified) 36.31 DegC DegC Heart Rate Monitored 53 bpm bpm Respiratory Rate - Anes 9 br/min br/min 12/29/2024 10:58 EDT Systolic Blood Pressure Non-Invasive 98 mmHg mmHg Diastolic Blood Pressure Non-Invasive 59 mmHg mmHg 12/29/2024 10:55 EDT Temperature (Route Not Specified) 36.07 DegC DegC Heart Rate Monitored 57 bpm bpm Respiratory Rate - Anes 14 br/min br/min Systolic Blood Pressure Non-Invasive 103 mmHg mmHg Diastolic Blood Pressure Non-Invasive 60 mmHg mmHg 12/29/2024 10:52 EDT Systolic Blood Pressure Non-Invasive 102 mmHg mmHg Diastolic Blood Pressure Non-Invasive 59 mmHg mmHg 12/29/2024 10:50 EDT Heart Rate Monitored 60 bpm bpm Respiratory Rate - Anes 17 br/min br/min 12/29/2024 10:49 EDT Systolic Blood Pressure Non-Invasive 106 mmHg mmHg Diastolic Blood Pressure Non-Invasive 62 mmHg mmHg 12/29/2024 10:46 EDT Systolic Blood Pressure Non-Invasive 169 mmHg mmHg Diastolic Blood Pressure Non-Invasive 75 mmHg mmHg 12/29/2024 10:45 EDT Respiratory Rate - Anes 0 br/min br/min 12/29/2024 7:45 EDT Temperature Temporal Artery 35.9 DegC Apical Heart Rate 58 bpm LOW Respiratory Rate 18 br/min Systolic Blood Pressure Non-Invasive 134 mmHg Diastolic Blood Pressure Non-Invasive 81 mmHg . Mental status: at preoperative baseline. Respiratory function: respirations are non-labored, stable. Respiratory support: none. CV function: stable. Cardiovascular support: none. Pain: satisfactory. Nausea status: satisfactory. Postoperative hydration status: within normal limits. Notes: Patient is sufficiently recovered from anesthesia to participate in the evaluation. No follow-up care needed. No complications post-anesthesia.. Digitally Signed by EBER HOLLAND MD on 12/29/2024 12:37 PM [id number] Summary of episode note Discharge Instructions Thank you for allowing [facility] to assist you with your healthcare needs. The following is importantdischarge information regarding your hospital visit. Your Care Team JUSTA CHARLES APRN-EUGENE Your Diagnosis Ureteral calculus Acute post-operative pain What to do next Follow Up Appointments Follow Up with LILI NGO MD, [facility] Where:[address] [facility] [address] [facility] [place] [address] [phone] Additional Information: follow up in 2 weeks for stent removal Someone Will Contact You Regarding These Home Health Referrals No home referrals have been ordered for you. No one will call you. Allergies Adhesive Bandage Rash traMADol Rash Medications Please ask your primary doctor or pharmacist before taking any other medication not listed, including over the counter drugs, herbal medications, vitamins and or supplements as they may interact withyour home medications. What How Much When Why Instructions Last Dose New ciprofloxacin (Cipro 500 mg oral tablet) 1 tab(s) by mouth Every 12 hours Duration: 3 Days Pickup at [facility] New trospium (trospium 20 mg oral tablet) 1 tab(s) by mouth Two (2) times a day Duration: 14 Days Pickup at [facility] Changed acetaminophen-oxyCODONE (acetaminophen-oxyCODONE 325 mg-5 mg oral tablet) 1 tab(s) by mouth Three (3) times a day as needed for as needed for pain Changed acetaminophen-oxyCODONE (Percocet 5 mg-325 mg oral tablet) 1 tab(s) by mouth Every 6 hours as needed for for pain Ureteral stone Duration: 5 Days Changed acetaminophen-oxyCODONE (Percocet 5 mg-325 mg oral tablet) 1 tab(s) by mouth Every 4 hours as needed for for pain Acute post-operative pain Duration: 3 Days Pickup at [facility] Unchanged busPIRone (busPIRone 5 mg oral tablet) 1 tab(s) by mouth Two (2) times a day Unchanged cetirizine (cetirizine 10 mg oral tablet) 1 tab(s) by mouth Daily at bedtime Unchanged cholecalciferol (Vitamin D3 50 mcg (2000 intl units) oral capsule) 1 tab(s) by mouth Every day Unchanged FLUoxetine (FLUoxetine 20 mg oral capsule) 1 cap by mouth Once a day (in the morning) Unchanged FLUoxetine (FLUoxetine 40 mg oral capsule) 1 cap by mouth Once a day (in the morning) Unchanged fluticasone nasal (fluticasone 50 mcg/ inh NASAL spray) 2 spray(s) each nostril Daily at bedtime Unchanged gabapentin (gabapentin 600 mg oral tablet) 1 tab(s) by mouth Three (3) times a day Unchanged herbal/ nutritional product (Red Yeast Rice 600 mg oral capsule) 1 cap by mouth Every day Unchanged ipratropium nasal (ipratropium (0.06%) nasal 42 mcg/ spray (Atrovent Nasal)) 2 spray(s) in the nose Once a day (in the morning) Unchanged methocarbamol (methocarbamol 500 mg oral tablet) 2 tab(s) by mouth Daily at bedtime Unchanged montelukast (montelukast 10 mg oral tablet) 1 tab(s) by mouth Once a day (in the morning) Unchanged pantoprazole (pantoprazole 40 mg oral enteric coated tablet) 1 tab(s) by mouth Once a day (in the morning) Unchanged prazosin (prazosin 2 mg oral capsule) 1 cap by mouth Daily at bedtime Unchanged rosuvastatin (rosuvastatin 40 mg oral tablet) 1 tab(s) by mouth Daily at bedtime Unchanged traZODone (traZODone 50 mg oral tablet) 1 tab(s) by mouth Daily at bedtime Pharmacy Information [facility]: [address] [place], [place] [phone] Please take this list to your next doctor s visit. Bring all medications you take, including over the counter medications, herbals and other supplements with you to your doctor s visit. Patients and families are reminded to discard old lists and to update any records with all medication providers or retail pharmacies. Education Materials Ureteral Stent Implantation, Care After This sheet gives you information about how to care for yourself after your procedure. Your health care provider may also give you more specific instructions. If you have problems or questions, contact your health care provider. What can I expect after the procedure? After the procedure, it is common to have: Nausea. Mild pain when you urinate. You may feel this pain in your lower back or lower abdomen. The pain should stop within a few minutes after you urinate. This may last for up to 1 week. A small amount of blood in your urine for several days. Follow these instructions at home: Medicines Take gufz-unl-sybvcoo and prescription medicines only as told by your health care provider. If you were prescribed an antibiotic medicine, take it as told by your health care provider. Do notstop taking the antibiotic even if you start to feel better. Do not drive for 24 hours if you were given a sedative during your procedure. Ask your health care provider if the medicine prescribed to you requires you to avoid driving or using heavy machinery. Activity Rest as told by your health care provider. Avoid sitting for a long time without moving. Get up to take short walks every 1 2 hours. This is important to improve blood flow and breathing. Ask for help if you feel weak or unsteady. Return to your normal activities as told by your health care provider. Ask your health care provider what activities are safe for you. General instructions Watch for any blood in your urine. Call your health care provider if the amount of blood in your urine increases. If you have a catheter: ? Follow instructions from your health care provider about taking care of your catheter and collection bag. ? Do not take baths, swim, or use a hot tub until your health care provider approves. Ask your healthcare provider if you may take showers. You may only be allowed to take sponge baths. Drink enough fluid to keep your urine pale yellow. Do not use any products that contain nicotine or tobacco, such as cigarettes, e- cigarettes, and chewing tobacco. These can delay healing after surgery. If you need help quitting, ask your health careprovider. Keep all follow-up visits as told by your health care provider. This is important. Contact a health care provider if: You have pain that gets worse or does not get better with medicine, especially pain when you urinate. You have difficulty urinating. You feel nauseous or you vomit repeatedly during a period of more than 2 days after the procedure. Get help right away if: Your urine is dark red or has blood clots in it. You are leaking urine (have incontinence). The end of the stent comes out of your urethra. You cannot urinate. You have sudden, sharp, or severe pain in your abdomen or lower back. You have a fever. You have swelling or pain in your legs. You have difficulty breathing. Summary After the procedure, it is common to have mild pain when you urinate that goes away within a few minutes after you urinate. This may last for up to 1 week. Watch for any blood in your urine. Call your health care provider if the amount of blood in your urine increases. Take tdax-jpw-ugeefqu and prescription medicines only as told by your health care provider. Drink enough fluid to keep your urine pale yellow. This information is not intended to replace advice given to you by your health care provider. Make sure you discuss any questions you have with your health care provider. Document Released: 04/18/2014 Document Revised: 05/23/2019 Document Reviewed: 05/24/2019 Elsevier Patient Education 2020 [employer] Laser Therapy for Kidney Stones, Care After This sheet gives you information about how to care for yourself after your procedure. Your health care provider may also give you more specific instructions. If you have problems or questions, contact your health care provider. What can I expect after the procedure? After the procedure, it is common to have: Pain. A burning sensation while urinating. Small amounts of blood in your urine. A need to urinate frequently. Pieces of kidney stone in your urine. Mild discomfort when urinating that may be felt in the back. You may experience this if you have a flexible tube (stent) in your ureter. Follow these instructions at home: Medicines Take agjn-zeo-nezpoca and prescription medicines only as told by your health care provider. If you were prescribed an antibiotic medicine, take it as told by your health care provider. Do notstop taking the antibiotic even if you start to feel better. Ask your health care provider if the medicine prescribed to you: ? Requires you to avoid driving or using heavy machinery. ? Can cause constipation. You may need to take actions to prevent or treat constipation, such as: ? Take goul-fmv-qsolltk or prescription medicines. ? Eat foods that are high in fiber, such as beans, whole grains, and fresh fruits and vegetables. ? Limit foods that are high in fat and processed sugars, such as fried or sweet foods. Activity Return to your normal activities as told by your health care provider. Ask your health care provider what activities are safe for you. Do not drive for 24 hours if you were given a sedative during your procedure. General instructions If your health care provider approves, you may take a warm bath to ease discomfort and burning. Drink enough fluid to keep your urine pale yellow. Your health care provider may recommend drinkingtwo 8 oz (237 mL) glasses of water per hour for a few hours after your procedure. You may be asked to strain your urine to collect any stone fragments that you pass. These fragmentsmay be tested. Keep all follow-up visits as told by your health care provider. This is important. If you have a stent, you will need to return to your health care provider to have the stent removed. Contact a health care provider if you: Have pain or a burning feeling that lasts more than 2 days. Feel nauseous. Vomit more and more often. Have difficulty urinating. Have pain that gets worse or does not get better with medicine. Get help right away if: You are unable to urinate, even if your bladder feels full. You have: ? Bright red blood or blood clots in your urine. ? More blood in your urine. ? Severe pain or discomfort. ? A fever or shaking chills. ? Abdominal pain. ? Difficulty breathing. ? Swelling in your legs. Summary After the procedure, it is common to have a burning sensation while urinating and small amounts of blood in your urine. Take ytpg-wsn-sbxrfea and prescription medicines only as told by your health care provider. Drink enough fluid to keep your urine pale yellow. Keep all follow-up visits as told by your health care provider. This is important. This information is not intended to replace advice given to you by your health care provider. Make sure you discuss any questions you have with your health care provider. Document Released: 09/11/2016 Document Revised: 04/27/2019 Document Reviewed: 04/27/2019 [employer] Patient Education 2020 51edj. [place] SAME DAY SURGERY DISCHARGE INSTRUCTIONS PLEASE FOLLOW THE INSTRUCTIONS BELOW MARKED WITH AN X: _x__ Regular Diet: Start with clear liquids, then soup and crackers and gradually add other foods. _x__ Drink extra fluids. ___ Special Diet Instructions: ___ ACTIVITY: _x__ Avoid stress to suture line. Since you have had an anesthetic, it would be advisable not to drive, drink alcohol, or make major decisions over the next 24 hours. You may require more rest tonight and tomorrow. ___ May resume regular activity as tolerated. ___ Restrict activity as follows: ___ ___ Walk Only ___ ___ Do not go up and down stairs. ___ Do not ride in car until ___ ___ Do not drive car. _x__ Do not have sexual intercourse. _x__ No heavy lifting, pushing or straining. _x__ Other: _Follow all verbal and written orders given by Dr. Ngo.__ BATHING/SHOWERING: ___ Sponge bathe until office visit. ___ Sitting in tub of warm water may relieve discomfort. ___ May tub bathe _x__ May shower ___ On day after surgery sit in tub of warm water to soak off dressing. DRESSING: ___ Keep operative area dry and clean for ___ ___ Check the operative area for signs of bleeding. Apply pressure to the bleeding site if necessary and call your physician. ___ Change dressing as necessary using sterile dressing material or bandaid. ___ Reinforce dressing as necessary. ___ Change and care for wound as follows: ___ ___ Wear bra for ___ days following breast surgery for comfort. ___ Change drip pad as needed. ___ Wear scrotal support for comfort. WATCH FOR SIGNS OF INFECTION: (Usually appears 36-48 hours after surgery) Increased temperature (101 degrees Fahrenheit or higher) Redness or swelling Increased pain Foul odor or drainage. If you have any questions, please call your doctor at the number listed on your follow up instructions. Follow all instructions given to you by your physician. Please complete and return the survey you will be receiving in the mail to help us better serve our patients. Form: 1522 ([id number]) R: 12/06 Additional Information VACCINATE! IT SAVES LIVES! Members of the community who have not yet received the COVID-19 vaccine and would like to receive it can visit one of [facility] vaccine clinics. There are many vaccine clinic locations within the [facility]. For locations and available times, please visit [email or web address].[place].gov/. It is important to note that some COVID mobile vaccine clinics are held outdoors and may be canceled in rainy or stormy conditions. To learn more about pediatric vaccinations (ages 5-11), we invite you to visit the [facility] webpage. [email or web address].[email or web address]/pages/4390-Ewugk-Grevahnaxzx-Undjcshtiw-Qtvme-[email or web address] stions.htmlTo learn more about the COVID-19 vaccine, we invite you to visit the CDC website for a list of frequently asked questions.https://www.cdc.gov/coronavirus/2019-ncov/vaccines/faq.html [facility] Patient Portal Access Instructions: Stay connected with your healthcare team and access your personal medical information anytime with the [facility] Patient Portal. Please follow the directions below to create your [facility] account: 1.Access the email account you provided upon registration to the hospital/physician office.2.Look for an invitation email from [facility].3.Open the email and access the invitation link: AcceptInvitation to [facility].4.Fill in the required cade to create your account. To access your account, visit [email or web address]. Click the blue button labeled Access Patient Portal and then log in with the username and password that you created in the steps above. You will be able to view your test results, lab results, a summary of your visits, upcoming appointments and more. There is also a convenient messaging option where you can send secure messages to your p rovider. In addition, you will have the ability to download any documents or summaries to your computer and/or send the information securely to a physician. Remember that your healthcare information is confidential, so carefully consider who you will allowto register on the [facility] Patient Portal for access to your information. You can also access the [facility] Patient Portal on the [facility] karla. Simply click on Patient Portal and then log into your account. If you would like to receive a full copy of your medical records, please contact the [facility] Medical Records Department by calling [phone], Wednesday through Wednesday between 8 a.m. and 4:30 p.m. HOW TO SAFELY DISPOSE OF PRESCRIPTION MEDICATIONS Please use one of the following methods to safely dispose of your unused medications. 1.Use a drug disposal kit: the drug disposal pouch allows you to safely discard your old and unuseddrugs. Ask your nurse to give you one when you are discharged.2.Visit a local take-back location: Many local pharmacies and police departments have programs that collect old and unwanted prescriptiondrugs. Call your local pharmacy or go to http://bit.Angelantoni/3O4Vl4o to find one close to you.3.Make use of household items: Use cat litter or old coffee grounds to dispose medications if other options arenot available. Mix your drugs with these household products, seal them in an airtight container andthrow it into the garbage. Call [facility]: [phone] to be sure your drugs can be disposed of in this way. Some medicines may require a different approach.4.Never flush your medications down the toilet. IF YOU HAVE BEEN PRESCRIBED AN OPIOID FOR PAIN If you have been prescribed an opioid (such as hydrocodone, oxycodone or morphine), it is critical to understand the possible side effects and risks of opioid pain medications. Even when taken as directed, opioids can have several side effects including: Tolerance, meaning you might need to take more of a medication for the same pain relief. Nausea, vomiting and/or constipation. Sleepiness, dizziness, dry mouth, confusion, depression or itching. Physical dependence, meaning you have withdrawal symptoms when a medication is stopped, can develop within a few days. KNOW YOUR RESPONSIBILITIES It is important to know exactly how much and how often to take the opioid pain medications you are prescribed. Never take opioids in higher amounts or more often than prescribed. Do not combine opioids with alcohol or other drugs that cause drowsiness, such as benzodiazepines, also known as benzos, including diazepam and alprazolam, muscle relaxants or sleep aids. Never sell or share prescription opioids. This is illegal. Store opioids in a secure place and out of reach of others (including children, family, friends and visitors). The last page of this document has been signed and retained as a CHART COPY. Signatures Patient Education Materials Ureteral Stent Implantation, Care After Laser Therapy for Kidney Stones, Care After 1-SDS Discharge Instructions Template (05/2018) (CUSTOM) Medication Leaflets My discharge plan and instructions have been reviewed and explained to me and IDALY AMBER L understand my current condition and have read and understand these discharge instructions. I have received a written copy of the plan/instructions. If I have questions, I am aware that I should contact my doctor. Patient/Visual Merchandising Specialist Signature: Date/Time: Relationship to Patient: Witness Name/Signature: Date/Time: [id number] Note History of Present Illness December 12, 2024 (Veronica Saldivar) Patient known to myself and Dr Ngo , presenting today for ER follow up. I saw patient (12/21/2023) as a new patient referred by Dr Messina for kidney stones. Per referral records patient was referred to [facility] for an abnormal renal US. She reported a history of stones, 1 of which required lithotripsy. She is a former patient with Dr Gates at [facility]. CT ABD/pelvis was ordered and showed bilateral renal stones and a right proximal ureteral stone. Urology referral was recommended. Attempted to call patient multiple times in September. Referral was sent back in October 2023 after not being able to contact patient. Patient called in on 12/17/2023 and was added on for surgery. US abdomen completed 07/26/2023: [place]. Probable fatty infiltration of the liver. Echogenic renal pyramids, correlate for medullary nephrocalcinosis and/or medullary sponge kidney. Patient was seen with wv 12/21/2023 and reported she had kidney stones again, she had stated she wasseen by [facility] October 2022 and had surgery. She reported pain in June 2023 and was found tohave an ovarian cyst. She reported she was seen by Dr Messina and was recommended work up [facility]. She had a CT in September and was not aware that she was passing a stone. She denied ever get ting messages for the month that we called her earlier in the year. She reported that she L4-L5 is deteriorated and chronic pain back and also lower abdominal pain near each groin. Denied fevers or hematuria. She denied recent stone passage. Urine dip demonstrated small blood. CT kidney completed September 2023 at [place], reviewed by wv and showed bilateral nonobstructing renal calculi. Stone inthe proximal right ureter with pelviectasis and mild fullness of the proximal right ureter, indicating at least partial obstruction. Discussed results. We discussed getting updated imaging. she does have blood in urine and could be passing stone. Will get imaging and have her follow up in 2 weeks with results. She prefers L[facility]ERO if possible. Patient was seen with wv 01/25/2024 and reported continued back pain. She did not see much change insymptoms and had not seen stone pass. Denied fever or gross hematuria. She was on menstrual cycle at time of visit. Urine dip demonstrated moderate blood (on menstrual cycle). CT Abdomen/Pelvis w/o Contrast completed December 2023, reviewed by me and showed distal right ureteral calculi measuring up to 7 mm with likely mild obstruction. Bilateral nonobstructive nephrolithiasis. Medullary nephrocalcinosis. Discussed results. Discussed stone was still present. It may have migrated some. Stone had beenpresent for several months. We discussed stone treatment. Discussed cystoscopy, retrograde pyelogram, right ureteroscopy with laser lithotripsy with stent placement. Procedure was discussed in detailwith patient and she was agreeable to proceed. Patient was seen on 02/21/2024 prior to her stone surgery. Patient underwent stone surgery on 03/03/[address] Ngo for right ureteroscopy. Patient was last seen on 09/27/[address] Ngo. KUB was negative. She was advised of uric acid stones and given stone prevent. She was to follow up as needed. Patient was seen at [facility] on 12/10/[address] ABD/pelvis showed 8x5mm left distal stone. WBC 14.4. CR 1.14. GFR 53. UA blood on UA. Discharged home with Percocet and Keflex. Today's visit: Patient reports taking Percocet two times and she only has 8 pills left. She has not been taking Tylenol or Motrin as it does not help her back. Patient repots that she took Percocet this morning andis not having pain, she reports the Percocet is helping her chronic back pain as well. Denies grosshematuria. Denies fevers. She has not been straining urine as she was not given a strainer by ER. She does not think she will pass stone and is prepared for surgery. 12/29/2024 (Dr. Ngo) pt here for left ureteoscopy and laser lithotripsy. Review of Systems Patient denies fever, chills, sweats, nausea or vomiting at this time. Pt denies headaches, visual disturbances, neck pain. Pt denies shortness of breath or dyspnea. Pt denies chest pain, palpitations. Pt denies abdominal pain, or flank pain. Pt denies lower extremity swelling or gait disturbances at this time. Physical Exam Vitals and Measurements T: 35.9 C (Temporal Artery) HR: 58 (Apical) RR: 18 BP: 134/81 SpO2: 97% HT: 154.9 cm WT: 108.8 kg Oxygen Therapy: Room air Pt appears normal in appearance. No acute distress. Breathing non-labored lungs cta bilaterally CVA - RRR abd soft, nt, nd, no palpable masses, no renal tenderness, no suprapubic tenderness genitalia normal extremities without edema Social History Alcohol Use: Current. Frequency: 1-2 times per year., 02/21/2024 Home/Environment Living situation: Home/Independent. Safe place to go: Yes. Financial concerns: No. Domestic Concerns: None. Lives In: Mobile home. Current Home Treatments None. Professional Skilled Services or Special Community Resources None. Marital Status: ., 12/22/2024 Nutrition/Health Type of diet: Regular. Appetite Good. Eating Difficulties None., 12/29/2024 Substance Abuse - High Risk, 02/21/2024 Use: Current. Type: THC Vape pen. Frequency: 1-2 times per month., 12/22/2024 Tobacco - High Risk, 02/21/2024 Nicotine Use: 5-9 cigarettes (between 1/4 to 1/2 pack)/day in last 30 days. Type: Cigarettes. Tobacco use per day: 10. Number of years: 21. Started at age: 17 Years. Smoking Cessation Information Instructed to not smoke day of surgery., 12/12/2024 Family History Thyroid disease: Mother. Health Status Family Member(s) Father: History is unknown Brother: History is negative Assessment/Plan 1. Ureteral calculus pt here for left ureteoscopy and laser lithotripsy. Medication Administration Given Cipro I.V., 400 mg, IV Piggyback Problem List/Past Medical History Ongoing Anxiety Bipolar disorder Degenerative disc disease Depression Frequent headaches GERD - Gastro-esophageal reflux disease Hypercholesterolemia Left ureteral stone Post traumatic stress disorder (PTSD) Renal calculus, bilateral Schizophrenia Seasonal allergy Sponge kidney Ureteral calculus Vitamin D deficiency Procedure/Surgical History Cystoscopy: 03/03/24 Lithotripsy: 11/25/22 Extraction of wisdom tooth: 2014 TL - Tubal ligation: 2012 Cholecystectomy: 2006 section Allergies Adhesive Bandage Rash traMADol Rash Medications What How Much When Why Instructions Last Dose Unchanged acetaminophen-oxyCODONE (acetaminophen-oxyCODONE 325 mg-5 mg oral tablet) 1 tab(s) by mouth Three (3) times a day as needed for as needed for pain Unchanged acetaminophen-oxyCODONE (Percocet 5 mg-325 mg oral tablet) 1 tab(s) by mouth Every 6 hours as needed for for pain Ureteral stone Duration: 5 Days Unchanged busPIRone (busPIRone 5 mg oral tablet) 1 tab(s) by mouth Two (2) times a day Unchanged cetirizine (cetirizine 10 mg oral tablet) 1 tab(s) by mouth Daily at bedtime Unchanged cholecalciferol (Vitamin D3 50 mcg (2000 intl units) oral capsule) 1 tab(s) by mouth Every day Unchanged FLUoxetine (FLUoxetine 20 mg oral capsule) 1 cap by mouth Once a day (in the morning) Unchanged FLUoxetine (FLUoxetine 40 mg oral capsule) 1 cap by mouth Once a day (in the morning) Unchanged fluticasone nasal (fluticasone 50 mcg/ inh NASAL spray) 2 spray(s) each nostril Daily at bedtime Unchanged gabapentin (gabapentin 600 mg oral tablet) 1 tab(s) by mouth Three (3) times a day Unchanged herbal/ nutritional product (Red Yeast Rice 600 mg oral capsule) 1 cap by mouth Every day Unchanged ipratropium nasal (ipratropium (0.06%) nasal 42 mcg/ spray (Atrovent Nasal)) 2 spray(s) in the nose Once a day (in the morning) Unchanged methocarbamol (methocarbamol 500 mg oral tablet) 2 tab(s) by mouth Daily at bedtime Unchanged montelukast (montelukast 10 mg oral tablet) 1 tab(s) by mouth Once a day (in the morning) Unchanged pantoprazole (pantoprazole 40 mg oral enteric coated tablet) 1 tab(s) by mouth Once a day (in the morning) Unchanged prazosin (prazosin 2 mg oral capsule) 1 cap by mouth Daily at bedtime Unchanged rosuvastatin (rosuvastatin 40 mg oral tablet) 1 tab(s) by mouth Daily at bedtime Unchanged traZODone (traZODone 50 mg oral tablet) 1 tab(s) by mouth Daily at bedtime Digitally Signed by LILI NGO MD on 12/29/2024 10:41 AM [facility] [id number] Anesthesiology Consult note Patient: FRANTZ KAUFFMAN Age: 39 years Sex: Female : 1985 Associated Diagnoses: None Author: RAHEEM SINGH MD Preoperative Information NPO >8 hours food >2hours clear liqiods Anesthesia history Patient's history: negative. Health Status Allergies: Allergic Reactions (Selected) Severity Not Documented Adhesive Bandage- Rash. TraMADol- Rash., Allergies (2) ActiveSeverityReaction traMADolRash Adhesive BandageRash Current medications: (Selected) Inpatient Medications Ordered Cipro I.V.: Start: 12/29/24 5:00:00 EDT, Dose = 400 mg, = 200 mL, IV Piggyback, PREOP pharm, Rate: 200 mL/hr, Infuse over: 60 minute(s), 12/29/24 5:00:00 EDT LR 1,000 mL: Start: 12/29/24 5:00:00 EDT, Rate: 20 mL/hr, 12/29/24 5:00:00 EDT lidocaine 1% preservative-free injectable solution: Start: 12/29/24 5:00:00 EDT, Dose = 2.5 mg, = 0.25 mL, Intradermal, prep pharm, 12/29/24 5:00:00 EDT Prescriptions Prescribed Percocet 5 mg-325 mg oral tablet: Dose = 1 tab(s), Oral, q6h, PRN for pain, X 5 day(s), # 12 tab(s), 0 Refill(s), Pharmacy: [id number], Ureteral stone, 155, cm, 12/22/24 11:56:00 EDT, Height, 108, kg, 12/22/24 11:56:00 EDT, Dosing Weight Documented Medications Documented FLUoxetine 20 mg oral capsule: Dose : 20 mg = 1 cap(s), Oral, qAM, # 30 cap(s), 0 Refill(s) FLUoxetine 40 mg oral capsule: Dose : 40 mg = 1 cap(s), Oral, qAM, # 30 cap(s), 0 Refill(s) Red Yeast Rice 600 mg oral capsule: 1 cap, Oral, Daily, 0 Refill(s) Vitamin D3 50 mcg (2000 intl units) oral capsule: 1 tab(s), Oral, Daily, 0 Refill(s) acetaminophen-oxyCODONE 325 mg-5 mg oral tablet: Dose = 1 tab(s), Oral, TID, PRN as needed for pain, 0 Refill(s) busPIRone 5 mg oral tablet: Dose : 5 mg = 1 tab(s), Oral, BID, 0 Refill(s) cetirizine 10 mg oral tablet: Dose : 10 mg = 1 tab(s), Oral, qHS, 0 Refill(s) fluticasone 50 mcg/inh NASAL spray: 100 mcg Dose = 2 spray(s), Nostril, each, qHS, 0 Refill(s) gabapentin 600 mg oral tablet: Dose : 600 mg = 1 tab(s), Oral, TID, 0 Refill(s) ipratropium (0.06%) nasal 42 mcg/spray (Atrovent Nasal): Dose = 2 spray(s), Nasal, qAM, 0 Refill(s) methocarbamol 500 mg oral tablet: Dose : 1,000 mg = 2 tab(s), Oral, qHS, 0 Refill(s) montelukast 10 mg oral tablet: Dose : 10 mg = 1 tab(s), Oral, qAM, 0 Refill(s) pantoprazole 40 mg oral enteric coated tablet: Dose : 40 mg = 1 tab(s), Oral, qAM, 0 Refill(s) prazosin 2 mg oral capsule: Dose : 2 mg = 1 cap(s), Oral, qHS, 0 Refill(s) rosuvastatin 40 mg oral tablet: Dose : 40 mg = 1 tab(s), Oral, qHS, 0 Refill(s) traZODone 50 mg oral tablet: Dose : 50 mg = 1 tab(s), Oral, qHS, 0 Refill(s), Medications (3) Active Scheduled: (2) ciprofloxacin PMX 400 mg 200 mL, IV Piggyback, PREOP pharm lidocaine 1% (MPF) 2 mL vial pf 2.5 mg 0.25 mL, Intradermal, prep pharm Continuous: (1) Lactated Ringers 1,000 mL 1,000 mL, Intravenous, 20 mL/hr PRN: (0) Problem list: Medical Anxiety / SNOMED CT 51519933 / Confirmed Bipolar disorder / SNOMED CT 13954359 / Confirmed Degenerative disc disease / SNOMED CT 143089450 / Confirmed Depression / SNOMED CT 741041691 / Confirmed Frequent headaches / SNOMED CT 5707391818 / Confirmed GERD - Gastro-esophageal reflux disease / SNOMED CT 5918925114 / Confirmed Hypercholesterolemia / SNOMED CT 16763522 / Confirmed Renal calculus, bilateral / SNOMED CT 766360182 / Confirmed 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 Post traumatic stress disorder (PTSD) / SNOMED CT 52955217 / Confirmed Schizophrenia / SNOMED CT 03772731 / Confirmed Seasonal allergy / SNOMED CT 9588026520 / Confirmed Left ureteral stone / SNOMED CT 70335111 / Confirmed Vitamin D deficiency / SNOMED CT 63959975 / Confirmed Canceled: Right ureteral calculus / SNOMED CT 04297502 Canceled: Ureteral calculus / SNOMED CT 43916334, Active Problems (21) Adult BMI 40.0-44.9 kg/sq m Anxiety Back pain Bipolar disorder Blood in stool Cervical cancer Degenerative disc disease Depression Frequent headaches GERD - Gastro-esophageal reflux disease Hypercholesterolemia Left ureteral stone Post traumatic stress disorder (PTSD) Prediabetes Renal calculus, bilateral Schizophrenia Seasonal allergy Sponge kidney Tinnitus Tobacco use Vitamin D deficiency Histories Past Medical History: No active or resolved past medical history items have been selected or recorded. Family History: Thyroid disease Mother Procedure history: Cystoscopy (460200891) on 03/03/2024 at 38 Years. Lithotripsy ([id number]) on 11/25/2022 at 37 Years. Extraction of wisdom tooth (671076635) in 2014 at 29 Years. TL - Tubal ligation (222930438) in 2012 at 27 Years. Cholecystectomy (52330541) in 2005 at 20 Years. section ([id number]). Comments: 12/22/2024 12:03 Deysi Burch RN 2008,2012 Social History: Social & Psychosocial Habits Alcohol 12/29/2024 Use: Current Frequency: 1-2 times per year Substance Abuse 12/29/2024Risk Assessment: High Risk 12/29/2024 Use: Current Type: THC Vape pen Frequency: 1-2 times per month Tobacco 12/29/2024Risk Assessment: High Risk 12/29/2024 Tobacco Use: 5-9 cigarettes (between 1 Type: Cigarettes Tobacco use per day: 10 Number of years: 21 Started at age: 17 Years Smoking Cessation Information Instructed to not smoke d Home/Environment 12/29/2024 Living situation: Home/Independent Safe place to go: Yes Financial concerns: No Domestic Concerns None Lives In Mobile home Current Home Treatments None Special Services and Community Resources None Marital Status of Patient if Patient Independent Adult: Nutrition/Health 12/29/2024 Type of diet: Regular Appetite Good Eating Difficulties None Physical Examination Vital Signs (last 24 hrs) Last Charted Temp Psajwkds96.9 DegC (DECEMBER 29 07:45) Heart Rate ApicalL 58 bpm (DECEMBER 29 07:45) COW576 mmHg (DECEMBER 29 07:45) DBP81 mmHg (DECEMBER 29 07:45) Measurements from flowsheet : Measurements 12/29/2024 7:45 EDT Height 154.9 cm Height in inches 61 inch(es) Admission Weight 108.8 kg Weight Lbs 239.4 lb Weight Method Actual [place] Body Weight 47.76 kg Type of Scale Used Bed scale Admission Body Mass Index 45.34 m2 General: Alert and oriented. Airway: Mallampati classification: II (soft palate, fauces, uvula visible). Dentition Evaluation: No teeth. Respiratory: Lungs are clear to auscultation, Respirations are non-labored. Cardiovascular: Normal rate, Regular rhythm. Heart Sounds: Normal. Neurologic: Alert, Oriented. Review / Management Results review: No qualifying data available . Documentation reviewed: Current records. Assessment and Plan [place] [employer] Anesthesiologists (ASA) physical status classification: Class II. Anesthetic Preoperative Plan Premedication: intravenous. Anesthetic technique: General. Induction: intravenously. Maintenance airway: Laryngeal mask airway. Postoperative pain management: Per surgeon. Informed consent: signed by patient. Digitally Signed by RAHEEM SINGH MD on 12/29/2024 09:18 AM Digitally Signed by RAHEEM SINGH MD on 12/29/2024 09:22 AM [facility] [id number] NoteDischarge Instructions Discharge Summary [address] [place] [address] [id number] 10/20/2024 Patient: FRANTZ SOLORZANO Sex: Female : 1985 Age: 38y Thank you for visiting [facility]. You have been evaluated today by Marvin Weiss D.O. for the following condition(s): Principal Diagnosis Pharyngitis. INSTRUCTIONS (Stop amoxicillin.). Prescription Medications: clindamycin HCl 150 mg capsule: Take 2 capsule by mouth three times a day for 7 days, dispense 42 capsule. Refills 0. Pharmacy: [facility] [id number] [place] [address]. Follow-up: Follow up with your healthcare provider in three days. Call for an appointment. You have been given the following additional information: Pharyngitis: Strep (Confirmed) Patient Signature 1 of 5 Discharge Instructions Facility Visual Merchandising Specialist Date/Time General Instructions with ExitWriter [address] [place] [address] [phone] 10/20/2024 Patient: FRANTZ SOLORZANO Sex: Female : 1985 Age: 38y Thank you for visiting [facility]. You have been evaluated today by Marvin Weiss D.O. for the following condition(s): Principal Diagnosis Pharyngitis. INSTRUCTIONS (Stop amoxicillin.). Prescription Medications: clindamycin HCl 150 mg capsule: Take 2 capsule by mouth three times a day for 7 days, dispense 42 capsule. Refills 0. [facility] [id number] [place] [address]. Follow-up: Follow up with your healthcare provider in three days. Call for an appointment. ADDITIONAL INFORMATION 2 of 5 Discharge Instructions Pharyngitis: Strep (Confirmed) You have had a positive test for strep throat. Strep throat is a contagious illness. It's spread bycoughing, kissing, sharing glasses or eating utensils, or by touching others after touching your mouth or nose. Symptoms include throat pain that is worse with swallowing, aching all over, headache, swollen lymph nodes at the front of the neck, and red swollen tonsils sometimes with white patches and fever. It's treated with antibiotic medicine. This should help you start to feel better in 1 to 2 days. Home care Rest at home. Drink plenty of fluids so you won't get dehydrated. No work or school for the first 2 days of taking the antibiotics. You can then return to school or work if you are feeling better, have been taking the antibiotic for at least 24 hours and don't have a fever. Take antibiotic medicine for the full 10 days, even if you feel better. This is very important to ensure the infection is treated completely. It's also important to prevent medicine- resistant germs from developing. If you were given an antibiotic shot, you don't need any more antibiotics. 3 of 5 Discharge Instructions You may use acetaminophen or ibuprofen to control pain or fever, unless another medicine was prescribed for this. Talk with your healthcare provider before taking these medicines if you have chronic liver or kidney disease or if you have had a stomach ulcer or gastrointestinal bleeding. Throat lozenges or sprays help reduce pain. Gargling with warm saltwater will also reduce throat pain. Dissolve 1/2 teaspoon of salt in 1 glass of warm water. This may be useful just before meals. Soft foods and cool or warm fluids are best. Don't eat salty or spicy foods. Follow-up care Follow up with your healthcare provider or our staff if you don't get better over the next week. When to get medical advice Call your healthcare provider right away or get immediate medical care if any of these occur: Fever of 100.4F (38C) or higher, or as directed by your healthcare provider New or worsening ear pain, sinus pain, or headache Painful lumps in the back of neck Stiff neck Lymph nodes getting larger or becoming soft in the middle You have trouble swallowing liquids or you can't open your mouth wide because of throat pain Signs of dehydration. These include very dark urine or no urine, sunken eyes, and dizziness. Noisy breathing Muffled voice Rash Call 911 Call 911right away if you: Have trouble breathing Can't swallow or talk Prevention Here are steps you can take to help prevent an infection: 4 of 5 Discharge Instructions Wash your hands often with soap and clean, running water for at least 20 seconds. Don't have close contact with people who have sore throats, colds, or other upper respiratory infections. Don't smoke, and stay away from secondhand smoke. 5 of 5[facility]07-05-2024 Hospital Discharge instructions Patient Education 03/03/2024 16:43:11 Ureteroscopy, Care After Ureteroscopy, Care After This sheet gives you information about how to care for yourself after your procedure. Your health care provider may also give you more specific instructions. If you have problems or questions, contact your health care provider. What can I expect after the procedure? After the procedure, it is common to have: A burning sensation when you urinate. Blood in your urine. Mild discomfort in the bladder area or kidney area when urinating. Needing to urinate more often or urgently. Follow these instructions at home: Medicines Take mvmj-fne-pyhxbhi and prescription medicines only as told by your health care provider. If you were prescribed an antibiotic medicine, take it as told by your health care provider. Do notstop taking the antibiotic even if you start to feel better. General instructions Do not drive for 24 hours if you were given a medicine to help you relax (sedative) during your procedure. To relieve burning, try taking a warm bath or holding a warm washcloth over your groin. Drink enough fluid to keep your urine clear or pale yellow. ?Drink two 8-ounce glasses of water every hour for the first 2 hours after you get home. ?Continue to drink water often at home. You can eat what you usually do. Keep all follow-up visits as told by your health care provider. This is important. ?If you had a tube placed to keep urine flowing (ureteral stent), ask your health care provider when you need to return to have it removed. Contact a health care provider if: You have chills or a fever. You have burning pain for longer than 24 hours after the procedure. You have blood in your urine for longer than 24 hours after the procedure. Get help right away if: You have large amounts of blood in your urine. You have blood clots in your urine. You have very bad pain. You have chest pain or trouble breathing. You are unable to urinate and you have the feeling of a full bladder. This information is not intended to replace advice given to you by your health care provider. Make sure you discuss any questions you have with your health care provider. Document Released: 08/21/2014 Document Revised: 07/29/2018 Document Reviewed: 05/28/2017 [employer] Patient Education 2020 [id number]. 03/03/2024 16:43:11 Ureteral Stent Implantation, Care After Ureteral Stent Implantation, Care After This sheet gives you information about how to care for yourself after your procedure. Your health care provider may also give you more specific instructions. If you have problems or questions, contact your health care provider. What can I expect after the procedure? After the procedure, it is common to have: Nausea. Mild pain when you urinate. You may feel this pain in your lower back or lower abdomen. The pain should stop within a few minutes after you urinate. This may last for up to 1 week. A small amount of blood in your urine for several days. Follow these instructions at home: Medicines Take vuww-sbz-grbojmy and prescription medicines only as told by your health care provider. If you were prescribed an antibiotic medicine, take it as told by your health care provider. Do notstop taking the antibiotic even if you start to feel better. Do not drive for 24 hours if you were given a sedative during your procedure. Ask your health care provider if the medicine prescribed to you requires you to avoid driving or using heavy machinery. Activity Rest as told by your health care provider. Avoid sitting for a long time without moving. Get up to take short walks every 1 2 hours. This is important to improve blood flow and breathing. Ask for help if you feel weak or unsteady. Return to your normal activities as told by your health care provider. Ask your health care provider what activities are safe for you. General instructions Watch for any blood in your urine. Call your health care provider if the amount of blood in your urine increases. If you have a catheter: ?Follow instructions from your health care provider about taking care of your catheter and collection bag. ?Do not take baths, swim, or use a hot tub until your health care provider approves. Ask your health care provider if you may take showers. You may only be allowed to take sponge baths. Drink enough fluid to keep your urine pale yellow. Do not use any products that contain nicotine or tobacco, such as cigarettes, e- cigarettes, and chewing tobacco. These can delay healing after surgery. If you need help quitting, ask your health careprovider. Keep all follow-up visits as told by your health care provider. This is important. Contact a health care provider if: You have pain that gets worse or does not get better with medicine, especially pain when you urinate. You have difficulty urinating. You feel nauseous or you vomit repeatedly during a period of more than 2 days after the procedure. Get help right away if: Your urine is dark red or has blood clots in it. You are leaking urine (have incontinence). The end of the stent comes out of your urethra. You cannot urinate. You have sudden, sharp, or severe pain in your abdomen or lower back. You have a fever. You have swelling or pain in your legs. You have difficulty breathing. Summary After the procedure, it is common to have mild pain when you urinate that goes away within a few minutes after you urinate. This may last for up to 1 week. Watch for any blood in your urine. Call your health care provider if the amount of blood in your urine increases. Take lsjr-pjx-akdquka and prescription medicines only as told by your health care provider. Drink enough fluid to keep your urine pale yellow. This information is not intended to replace advice given to you by your health care provider. Make sure you discuss any questions you have with your health care provider. Document Released: 04/18/2014 Document Revised: 05/23/2019 Document Reviewed: 05/24/2019 [employer] Patient Education 2020 51edj. 03/03/2024 16:43:11 1- [facility] General Discharge Guidelines (05/14/2023) (CUSTOM) [facility] SAME DAY SURGERY DISCHARGE INSTRUCTIONS PLEASE FOLLOW THE INSTRUCTIONS BELOW MARKED WITH AN X: __X_Regular Diet: Start with clear liquids, then soup and crackers. Gradually add other foods unless otherwise instructed by your surgeon __X_Drink extra fluids ACTIVTY: __X_Since you have had anesthetic, it would be advisable not to drive, drink alcohol, or make majordecisions over the next 24 hours. You may require more rest tonight and tomorrow __X_Do not drive vehicle while taking narcotics and as directed by your Surgeon ____Restrict activity as follows: ____Do not have sexual intercourse. Nothing in the vagina-No tampons or Douching ____No heavy lifting, pushing, or straining ____Elevate operative limb ____Ice as directed __X_Follow all written and verbal instructions given to you by your Doctor ____Other: BATHING/SHOWERING ____Sponge bathe until office visit. ____Sitting in tub of warm water may relieve discomfort ____May tub bathe ____May shower in 24-48 hours with clean linen unless otherwise instructed by your Doctor DRESSING: ____Keep operative area clean and dry ____Check the operative area for signs of bleeding. Apply pressure to the bleeding site if necessary. ____Change drip pad as needed ____Wear scrotal support for comfort WATCH FOR SIGNS OF INFECTION: (Usually appears 36-48 hours after surgery) Increased temperature (101 degrees Fahrenheit or higher) Redness or swelling Increased pain Foul odor or drainage If you have any questions, please call your doctor at the number listed on your follow-up instructions. Follow Up Care 01/25/2024 15:09:14 With:LILI NGO MD, [facility] [place] Address: [address] [place] [phone] When: Unknown Comments:follow up in 2 weeks for stent removal [facility] 07-05-2024 Summary of episode note Discharge Instructions Thank you for allowing [facility] to assist you with your healthcare needs. The following is importantdischarge information regarding your hospital visit. Your Care Team JUSTA CHARLES What to do next Follow Up Appointments Follow Up with [facility], [facility] [employer] Where:[address] [place] [phone] Additional Information: follow up in 2 weeks for stent removal The Following Activity and Diet Have Been Ordered for You No qualifying data available. No qualifying data available. The Following Equipment Has Been Ordered for You No qualifying data available. Allergies Adhesive Bandage Rash traMADol Rash Medications Please ask your primary doctor or pharmacist before taking any other medication not listed, including over the counter drugs, herbal medications, vitamins and or supplements as they may interact withyour home medications. What How Much When Instructions Last Dose New ciprofloxacin (Cipro 500 mg oral tablet) 1 tab(s) by mouth Every 12 hours Duration: 3 Days Pickup at [facility] New oxybutynin (oxybutynin 10 mg/ 24 hr oral tablet, extended release) 1 tab(s) by mouth Once a day Refills: 6 Pickup at [facility] Unchanged acetaminophen-oxyCODONE (acetaminophen-oxyCODONE 325 mg-5 mg oral tablet) 1 tab(s) by mouth Three (3) times a day as needed for as needed for pain Unchanged busPIRone (busPIRone 5 mg oral tablet) 1 tab(s) by mouth Two (2) times a day Unchanged cetirizine (cetirizine 10 mg oral tablet) 1 tab(s) by mouth Daily at bedtime Unchanged cholecalciferol (Vitamin D3 50 mcg (2000 intl units) oral capsule) 1 tab(s) by mouth Every day Unchanged FLUoxetine (FLUoxetine 60 mg oral tablet) 1 tab(s) by mouth Once a day (in the morning) Unchanged fluticasone nasal (fluticasone 50 mcg/ inh NASAL spray) 2 spray(s) each nostril Daily at bedtime Unchanged gabapentin (gabapentin 600 mg oral tablet) 1 tab(s) by mouth Three (3) times a day Unchanged herbal/ nutritional product (Red Yeast Rice 600 mg oral capsule) 1 cap by mouth Every day Unchanged ipratropium nasal (ipratropium (0.06%) nasal 42 mcg/ spray (Atrovent Nasal)) 2 spray(s) in the nose Four (4) times a day as needed for as needed for allergy symptoms Unchanged methocarbamol (methocarbamol 500 mg oral tablet) 2 tab(s) by mouth Daily at bedtime Unchanged montelukast (montelukast 10 mg oral tablet) 1 tab(s) by mouth Once a day (in the morning) Unchanged pantoprazole (pantoprazole 40 mg oral enteric coated tablet) 1 tab(s) by mouth Once a day (in the morning) Unchanged prazosin (prazosin 2 mg oral capsule) 1 cap by mouth Daily at bedtime Unchanged rosuvastatin (rosuvastatin 40 mg oral tablet) 1 tab(s) by mouth Daily at bedtime Unchanged traZODone (traZODone 50 mg oral tablet) 1 tab(s) by mouth Daily at bedtime Pharmacy Information [facility]: [address] [place], [place] [id number] [phone] Please take this list to your next doctor s visit. Bring all medications you take, including over the counter medications, herbals and other supplements with you to your doctor s visit. Patients and families are reminded to discard old lists and to update any records with all medication providers or retail pharmacies. Education Materials Ureteroscopy, Care After This sheet gives you information about how to care for yourself after your procedure. Your health care provider may also give you more specific instructions. If you have problems or questions, contact your health care provider. What can I expect after the procedure? After the procedure, it is common to have: A burning sensation when you urinate. Blood in your urine. Mild discomfort in the bladder area or kidney area when urinating. Needing to urinate more often or urgently. Follow these instructions at home: Medicines Take zvqw-des-knbiqgx and prescription medicines only as told by your health care provider. If you were prescribed an antibiotic medicine, take it as told by your health care provider. Do notstop taking the antibiotic even if you start to feel better. General instructions Do not drive for 24 hours if you were given a medicine to help you relax (sedative) during your procedure. To relieve burning, try taking a warm bath or holding a warm washcloth over your groin. Drink enough fluid to keep your urine clear or pale yellow. ? Drink two 8-ounce glasses of water every hour for the first 2 hours after you get home. ? Continue to drink water often at home. You can eat what you usually do. Keep all follow-up visits as told by your health care provider. This is important. ? If you had a tube placed to keep urine flowing (ureteral stent), ask your health care provider whenyou need to return to have it removed. Contact a health care provider if: You have chills or a fever. You have burning pain for longer than 24 hours after the procedure. You have blood in your urine for longer than 24 hours after the procedure. Get help right away if: You have large amounts of blood in your urine. You have blood clots in your urine. You have very bad pain. You have chest pain or trouble breathing. You are unable to urinate and you have the feeling of a full bladder. This information is not intended to replace advice given to you by your health care provider. Make sure you discuss any questions you have with your health care provider. Document Released: 08/21/2014 Document Revised: 07/29/2018 Document Reviewed: 05/28/2017 Elsevier Patient Education 2020 [employer] Ureteral Stent Implantation, Care After This sheet gives you information about how to care for yourself after your procedure. Your health care provider may also give you more specific instructions. If you have problems or questions, contact your health care provider. What can I expect after the procedure? After the procedure, it is common to have: Nausea. Mild pain when you urinate. You may feel this pain in your lower back or lower abdomen. The pain should stop within a few minutes after you urinate. This may last for up to 1 week. A small amount of blood in your urine for several days. Follow these instructions at home: Medicines Take bywz-coo-tvbegge and prescription medicines only as told by your health care provider. If you were prescribed an antibiotic medicine, take it as told by your health care provider. Do notstop taking the antibiotic even if you start to feel better. Do not drive for 24 hours if you were given a sedative during your procedure. Ask your health care provider if the medicine prescribed to you requires you to avoid driving or using heavy machinery. Activity Rest as told by your health care provider. Avoid sitting for a long time without moving. Get up to take short walks every 1 2 hours. This is important to improve blood flow and breathing. Ask for help if you feel weak or unsteady. Return to your normal activities as told by your health care provider. Ask your health care provider what activities are safe for you. General instructions Watch for any blood in your urine. Call your health care provider if the amount of blood in your urine increases. If you have a catheter: ? Follow instructions from your health care provider about taking care of your catheter and collection bag. ? Do not take baths, swim, or use a hot tub until your health care provider approves. Ask your healthcare provider if you may take showers. You may only be allowed to take sponge baths. Drink enough fluid to keep your urine pale yellow. Do not use any products that contain nicotine or tobacco, such as cigarettes, e- cigarettes, and chewing tobacco. These can delay healing after surgery. If you need help quitting, ask your health careprovider. Keep all follow-up visits as told by your health care provider. This is important. Contact a health care provider if: You have pain that gets worse or does not get better with medicine, especially pain when you urinate. You have difficulty urinating. You feel nauseous or you vomit repeatedly during a period of more than 2 days after the procedure. Get help right away if: Your urine is dark red or has blood clots in it. You are leaking urine (have incontinence). The end of the stent comes out of your urethra. You cannot urinate. You have sudden, sharp, or severe pain in your abdomen or lower back. You have a fever. You have swelling or pain in your legs. You have difficulty breathing. Summary After the procedure, it is common to have mild pain when you urinate that goes away within a few minutes after you urinate. This may last for up to 1 week. Watch for any blood in your urine. Call your health care provider if the amount of blood in your urine increases. Take hehc-mku-zsahaxo and prescription medicines only as told by your health care provider. Drink enough fluid to keep your urine pale yellow. This information is not intended to replace advice given to you by your health care provider. Make sure you discuss any questions you have with your health care provider. Document Released: 04/18/2014 Document Revised: 05/23/2019 Document Reviewed: 05/24/2019 [employer] Patient Education 2020 [employer] [facility] SAME DAY SURGERY DISCHARGE INSTRUCTIONS PLEASE FOLLOW THE INSTRUCTIONS BELOW MARKED WITH AN X: __X_Regular Diet: Start with clear liquids, then soup and crackers. Gradually add other foods unless otherwise instructed by your surgeon __X_Drink extra fluids ACTIVTY: __X_Since you have had anesthetic, it would be advisable not to drive, drink alcohol, or make majordecisions over the next 24 hours. You may require more rest tonight and tomorrow __X_Do not drive vehicle while taking narcotics and as directed by your Surgeon ____Restrict activity as follows: ____Do not have sexual intercourse. Nothing in the vagina-No tampons or Douching ____No heavy lifting, pushing, or straining ____Elevate operative limb ____Ice as directed __X_Follow all written and verbal instructions given to you by your Doctor ____Other: BATHING/SHOWERING ____Sponge bathe until office visit. ____Sitting in tub of warm water may relieve discomfort ____May tub bathe ____May shower in 24-48 hours with clean linen unless otherwise instructed by your Doctor DRESSING: ____Keep operative area clean and dry ____Check the operative area for signs of bleeding. Apply pressure to the bleeding site if necessary. ____Change drip pad as needed ____Wear scrotal support for comfort WATCH FOR SIGNS OF INFECTION: (Usually appears 36-48 hours after surgery) Increased temperature (101 degrees Fahrenheit or higher) Redness or swelling Increased pain Foul odor or drainage If you have any questions, please call your doctor at the number listed on your follow-up instructions. Additional Information VACCINATE! IT SAVES LIVES! Members of the community who have not yet received the COVID-19 vaccine and would like to receive it can visit one of [facility] vaccine clinics. There are many vaccine clinic locations within the [facility]. For locations and available times, please visit [email or web address].[place].gov/. It is important to note that some COVID mobile vaccine clinics are held outdoors and may be canceled in rainy or stormy conditions. To learn more about pediatric vaccinations (ages 5-11), we invite you to visit the [facility] webpage. [email or web address].[email or web address]/pages/[email or web address]-[email or web address]-[email or web address] stions.htmlTo learn more about the COVID-19 vaccine, we invite you to visit the CDC website for a list of frequently asked questions.https://www.cdc.gov/coronavirus/2019-ncov/vaccines/faq.html [facility] Patient Portal Access Instructions: Stay connected with your healthcare team and access your personal medical information anytime with the [facility] Patient Portal. Please follow the directions below to create your [employer] account: 1.Access the email account you provided upon registration to the hospital/physician office.2.Look for an invitation email from [facility].3.Open the email and access the invitation link: AcceptInvitation to [facility].4.Fill in the required cade to create your account. To access your account, visit [email or web address]. Click the blue button labeled Access Patient Portal and then log in with the username and password that you created in the steps above. You will be able to view your test results, lab results, a summary of your visits, upcoming appointments and more. There is also a convenient messaging option where you can send secure messages to your p flynnvider. In addition, you will have the ability to download any documents or summaries to your computer and/or send the information securely to a physician. Remember that your healthcare information is confidential, so carefully consider who you will allowto register on the [facility] for access to your information. You can also access the [facility] Patient Portal on the [facility] karla. Simply click on Patient Portal and then log into your account. If you would like to receive a full copy of your medical records, please contact the [facility] Medical Records Department by calling [phone], Wednesday through Wednesday between 8 a.m. and 4:30 p.m. HOW TO SAFELY DISPOSE OF PRESCRIPTION MEDICATIONS Please use one of the following methods to safely dispose of your unused medications. 1.Use a drug disposal kit: the drug disposal pouch allows you to safely discard your old and unuseddrugs. Ask your nurse to give you one when you are discharged.2.Visit a local take-back location: Many local pharmacies and police departments have programs that collect old and unwanted prescriptiondrugs. Call your local pharmacy or go to http://Outbox.Angelantoni/7N5Ct9u to find one close to you.3.Make use of household items: Use cat litter or old coffee grounds to dispose medications if other options arenot available. Mix your drugs with these household products, seal them in an airtight container andthrow it into the garbage. Call [facility]: [phone] to be sure your drugs can be disposed of in this way. Some medicines may require a different approach.4.Never flush your medications down the toilet. IF YOU HAVE BEEN PRESCRIBED AN OPIOID FOR PAIN If you have been prescribed an opioid (such as hydrocodone, oxycodone or morphine), it is critical to understand the possible side effects and risks of opioid pain medications. Even when taken as directed, opioids can have several side effects including: Tolerance, meaning you might need to take more of a medication for the same pain relief. Nausea, vomiting and/or constipation. Sleepiness, dizziness, dry mouth, confusion, depression or itching. Physical dependence, meaning you have withdrawal symptoms when a medication is stopped, can develop within a few days. KNOW YOUR RESPONSIBILITIES It is important to know exactly how much and how often to take the opioid pain medications you are prescribed. Never take opioids in higher amounts or more often than prescribed. Do not combine opioids with alcohol or other drugs that cause drowsiness, such as benzodiazepines, also known as benzos, including diazepam and alprazolam, muscle relaxants or sleep aids. Never sell or share prescription opioids. This is illegal. Store opioids in a secure place and out of reach of others (including children, family, friends and visitors). The last page of this document has been signed and retained as a CHART COPY. Signatures Patient Education Materials Ureteroscopy, Care After Ureteral Stent Implantation, Care After 1- SDS General Discharge Guidelines (05/14/2023) (CUSTOM) Medication Leaflets My discharge plan and instructions have been reviewed and explained to me and I,FRANTZ KAUFFMAN understand my current condition and have read and understand these discharge instructions. I have received a written copy of the plan/instructions. If I have questions, I am aware that I should contact my doctor. Patient/Visual Merchandising Specialist Signature: Date/Time: Relationship to Patient: Witness Name/Signature: Date[facility]Time: [id number] Anesthesiology Consult note Patient: FRANTZ KAUFFMAN Age: 38 years Sex: Female : 1985 Associated Diagnoses: None Author: MATTHEW MELENDEZ MD Postoperative Information Patient has been doing well in the PACU. They have been hemodynamically stable, oxygenating well, the pain and nausea are under control. Patients hydration status appears to be adequate and at baseline. Given the patient's stability, I feel they are appropriately recovered from anesthesia and in a stable condition to be discharged from PACU. This is a late entry documentation due to involvement patient care and inability to document prior to discharge from PACU. Patient was evaluated prior to discharge, and the note followed. Assessment Postanesthesia assessment Vitals: Vital signs from flowsheet : Vital Signs 03/03/2024 15:47 EDT Temperature Temporal Artery 36.2 DegC Heart Rate Monitored 78 bpm Respiratory Rate 18 br/min Systolic Blood Pressure Non-Invasive 129 mmHg Diastolic Blood Pressure Non-Invasive 76 mmHg Mean Arterial Pressure (NBP) 91 mmHg 03/03/2024 15:32 EDT Heart Rate Monitored 92 bpm Respiratory Rate 18 br/min Systolic Blood Pressure Non-Invasive 105 mmHg Diastolic Blood Pressure Non-Invasive 72 mmHg Mean Arterial Pressure (NBP) 83 mmHg 03/03/2024 15:17 EDT Heart Rate Monitored 67 bpm Respiratory Rate 18 br/min Systolic Blood Pressure Non-Invasive 117 mmHg Diastolic Blood Pressure Non-Invasive 76 mmHg Mean Arterial Pressure (NBP) 89 mmHg 03/03/2024 15:02 EDT Temperature Temporal Artery 36 DegC Heart Rate Monitored 70 bpm Respiratory Rate 20 br/min Systolic Blood Pressure Non-Invasive 141 mmHg HI Diastolic Blood Pressure Non-Invasive 90 mmHg HI Mean Arterial Pressure (NBP) 107 mmHg 03/03/2024 15:00 EDT Respiratory Rate - Anes 0 br/min br/min 03/03/2024 14:58 EDT Systolic Blood Pressure Non-Invasive 108 mmHg mmHg Diastolic Blood Pressure Non-Invasive 67 mmHg mmHg 03/03/2024 14:55 EDT Temperature (Route Not Specified) 36.22 DegC DegC Heart Rate Monitored 62 bpm bpm Respiratory Rate - Anes 11 br/min br/min Systolic Blood Pressure Non-Invasive 98 mmHg mmHg Diastolic Blood Pressure Non-Invasive 60 mmHg mmHg 03/03/2024 14:52 EDT Systolic Blood Pressure Non-Invasive 99 mmHg mmHg Diastolic Blood Pressure Non-Invasive 62 mmHg mmHg 03/03/2024 14:50 EDT Temperature (Route Not Specified) 36.34 DegC DegC Heart Rate Monitored 63 bpm bpm Respiratory Rate - Anes 11 br/min br/min 03/03/2024 14:49 EDT Systolic Blood Pressure Non-Invasive 100 mmHg mmHg Diastolic Blood Pressure Non-Invasive 67 mmHg mmHg 03/03/2024 14:46 EDT Systolic Blood Pressure Non-Invasive 97 mmHg mmHg Diastolic Blood Pressure Non-Invasive 68 mmHg mmHg 03/03/2024 14:45 EDT Temperature (Route Not Specified) 36.3 DegC DegC Heart Rate Monitored 64 bpm bpm Respiratory Rate - Anes 12 br/min br/min 03/03/2024 14:43 EDT Systolic Blood Pressure Non-Invasive 91 mmHg mmHg Diastolic Blood Pressure Non-Invasive 55 mmHg mmHg 03/03/2024 14:40 EDT Temperature (Route Not Specified) 34.76 DegC DegC Heart Rate Monitored 67 bpm bpm Respiratory Rate - Anes 16 br/min br/min Systolic Blood Pressure Non-Invasive 95 mmHg mmHg Diastolic Blood Pressure Non-Invasive 67 mmHg mmHg 03/03/2024 14:38 EDT Systolic Blood Pressure Non-Invasive 104 mmHg mmHg Diastolic Blood Pressure Non-Invasive 55 mmHg mmHg 03/03/2024 14:35 EDT Heart Rate Monitored 63 bpm bpm Respiratory Rate - Anes 0 br/min br/min Systolic Blood Pressure Non-Invasive 137 mmHg mmHg Diastolic Blood Pressure Non-Invasive 89 mmHg mmHg 03/03/2024 11:00 EDT Temperature Temporal Artery 35.9 DegC Peripheral Pulse Rate 53 bpm LOW Respiratory Rate 16 br/min Systolic Blood Pressure Non-Invasive 102 mmHg Diastolic Blood Pressure Non-Invasive 62 mmHg . Digitally Signed by MATTHEW MELENDEZ MD on 03/03/2024 04:34 PM [id number] Note ORIGINAL EXAMINATION: RETROGRADE PYELOGRAM03/03/2024 3:02 pm COMPARISON: None. HISTORY: ORDERING SYSTEM PROVIDED HISTORY: Reason for Exam: STONE FLUOROSCOPY DOSE AND TYPE: Radiation Exposure Index: DAP uGy*m2, 5.8 FINDINGS: Intraoperative fluoroscopy utilized for retrograde pyelogram. Single image reveals right ureteral stent. IMPRESSION: Please see procedure note for further detail. Interpreted by: Lili Miller DO Preliminary Report By: Lili Miller DO Electronically signed By Lili Miller DO Dictated Date: 03/03/2024 4:06:48 PM Prelim Date: 03/03/2024 4:07:53 PM Sign Date: 03/03/2024 4:07:53 PM Ordering Provider: [facility]07-05-2024 Anesthesiology Progress note Patient: FRANTZ KAUFFMAN Age: 38 years Sex: Female : 1985 Associated Diagnoses: None Author: MEGAN MCKEON MD Preoperative Information NPO >8 hours Anesthesia history Patient's history: negative. History of Present Illness 38yoF with PMH medullary cystic kidney, bilateral renal calculus, anxiety, bipolar disorder, degenerative disc disease, depression, frequent headaches, hypercholesterolemia, PTSD, schizophrenia, seasonal allergies, vitamin D deficiency, COVID (2020), GERD (controlled with pantoprazole) presenting for cysto. Denies CP, SOB, fever, recent cough, cold or congestion; >4 METS, no GERD sx, N or V today. Health Status Allergies: Allergic Reactions (Selected) Severity Not Documented Adhesive Bandage- Rash. TraMADol- Rash., Allergies (2) ActiveSeverityReaction traMADolRash Adhesive BandageRash Current medications: (Selected) Inpatient Medications Ordered LR 1,000 mL: 75 mL/hr, Intravenous, Stop: 03/03/24 22:59:00 EDT lidocaine 1% preservative-free injectable solution: 2.5 mg, 0.25 mL, Intradermal, prep pharm Documented Medications Documented FLUoxetine 60 mg oral tablet: 60 mg, 1 tab(s), Oral, qAM Red Yeast Rice 600 mg oral capsule: 1 cap, Oral, Daily, 0 Refill(s) Vitamin D3 50 mcg (2000 intl units) oral capsule: 1 tab(s), Oral, Daily, 0 Refill(s) acetaminophen-oxyCODONE 325 mg-5 mg oral tablet: 1 tab(s), Oral, TID, PRN: as needed for pain, 0 Refill(s) busPIRone 5 mg oral tablet: 5 mg, 1 tab(s), Oral, BID, 0 Refill(s) cetirizine 10 mg oral tablet: 10 mg, 1 tab(s), Oral, qHS, 0 Refill(s) fluticasone 50 mcg/inh NASAL spray: 100 mcg, 2 spray(s), Nostril, each, qHS, 0 Refill(s) gabapentin 600 mg oral tablet: 600 mg, 1 tab(s), Oral, TID, 0 Refill(s) ipratropium (0.06%) nasal 42 mcg/spray (Atrovent Nasal): 2 spray(s), Nasal, QID, PRN: as needed forallergy symptoms, 0 Refill(s) methocarbamol 500 mg oral tablet: 1,000 mg, 2 tab(s), Oral, qHS, 0 Refill(s) montelukast 10 mg oral tablet: 10 mg, 1 tab(s), Oral, qAM, 0 Refill(s) pantoprazole 40 mg oral enteric coated tablet: 40 mg, 1 tab(s), Oral, qAM, 0 Refill(s) prazosin 2 mg oral capsule: 2 mg, 1 cap(s), Oral, qHS, 0 Refill(s) rosuvastatin 40 mg oral tablet: 40 mg, 1 tab(s), Oral, qHS, 0 Refill(s) traZODone 50 mg oral tablet: 50 mg, 1 tab(s), Oral, qHS, 0 Refill(s), Medications (2) Active Scheduled: (1) lidocaine 1% (MPF) 2 mL vial pf 2.5 mg 0.25 mL, Intradermal, prep pharm Continuous: (1) Lactated Ringers 1,000 mL 1,000 mL, Intravenous, 75 mL/hr PRN: (0) Problem list: Medical Anxiety / SNOMED CT 43264814 / Confirmed Bipolar disorder / SNOMED CT 86973880 / Confirmed Degenerative disc disease / SNOMED CT 612223382 / Confirmed Depression / SNOMED CT 551507842 / Confirmed Frequent headaches / SNOMED CT 1021685708 / Confirmed GERD - Gastro-esophageal reflux disease / SNOMED CT 3261087201 / Confirmed Hypercholesterolemia / SNOMED CT 52759686 / Confirmed Renal calculus, bilateral / SNOMED CT 161972044 / Confirmed Sponge kidney / SNOMED CT 482321911 / Confirmed Post traumatic stress disorder (PTSD) / SNOMED CT 26967818 / Confirmed Schizophrenia / SNOMED CT 34712083 / Confirmed Seasonal allergy / SNOMED CT 8830755495 / Confirmed Right ureteral calculus / SNOMED CT 47709200 / Confirmed Vitamin D deficiency / SNOMED CT 55604117 / Confirmed, Active Problems (15) Anxiety Bipolar disorder Degenerative disc disease Depression Frequent headaches GERD - Gastro-esophageal reflux disease Hypercholesterolemia Post traumatic stress disorder (PTSD) Renal calculus, bilateral Right ureteral calculus Schizophrenia Seasonal allergy Sponge kidney Tobacco use Vitamin D deficiency Histories Past Medical History: No active or resolved past medical history items have been selected or recorded. Procedure history: Lithotripsy (107765453) on 11/25/2022 at 37 Years. Cholecystectomy (88055505). TL - Tubal ligation ([id number]). section (20033475). Tooth extraction, complete upper (923065282). Social History: Social & Psychosocial Habits Alcohol 03/03/2024 Use: Current Frequency: 1-2 times per year Substance Abuse 03/03/2024 Use: Current Type: THC Vape pen Frequency: Several times per day 4Risk Assessment: High Risk Tobacco 03/03/2024 Tobacco Use: 5-9 cigarettes (between 1 Type: Cigarettes Tobacco use per day: 10 Number of years: 22 Started at age: 17 Years Smoking Cessation Information Instructed to not smoke d 4Risk Assessment: High Risk Home/Environment 03/03/2024 Living situation: Home/Independent Safe place to go: Yes Current Home Treatments None Special Services and Community Resources None Marital Status of Patient if Patient Independent Adult: Physical Examination Vital Signs (last 24 hrs) Last Charted Temp Xinbjkmk56.9 DegC (MAR 03 11:00) YWT686 mmHg (MAR 03 11:00) DBP62 mmHg (MAR 03 11:00) Measurements from flowsheet : Measurements 03/03/2024 11:00 EDT Height 154.9 cm Height in inches 61 inch(es) Admission Weight 101.6 kg Weight Lbs 223.5 lb Weight Method Actual [place] Body Weight 47.76 kg Type of Scale Used Bed scale Admission Body Mass Index 42.34 m2 General: Alert and oriented, No acute distress. Airway: Normal mouth, Normal neck range of motion. Mallampati classification: III (soft palate, base of uvula visible). Dentition Evaluation: Intact, Missing teeth, Dentures, upper, Denies loose/chipped teeth. Neck: Supple. Respiratory: Lungs are clear to auscultation, Respirations are non-labored. Cardiovascular: Normal rate, Regular rhythm. Heart Sounds: Normal. Neurologic: Alert, Oriented. Review / Management Results review: No qualifying data available . Documentation reviewed: Current records. Assessment and Plan [place] [employer]hesi[employer] (ASA) physical status classification: Class II. Anesthetic Preoperative Plan Premedication: intravenous. Anesthetic technique: General. Induction: intravenously. Maintenance airway: Laryngeal mask airway. Postoperative pain management: Per surgeon. Risks discussed: nausea, vomiting, headache, sore throat, dental injury, hypotension, allergic reaction, serious complications. Informed consent: signed by patient. Digitally Signed by MEGAN MCKEON MD on 03/03/2024 02:21 PM [id number] Note. MICRO - Microbiology PROCEDURE: Urine Culture [*1] SOURCE: Urine, Clean Catch BODY SITE: COLLECTED DATE/TIME: 02/21/2024 13:58 EDT RECEIVED DATE/TIME: 02/21/2024 19:57 EDT START DATE/TIME: 02/21/2024 19:58 EDT FREE TEXT SOURCE: FINAL REPORTS Final Report [] Verified Date/Time/Personnel: 02/22/2024 14:36 EDT 10,000 - 50,000 cfu/ml Mixed growth consistent with normal urogenital jonathan. Performing Locations *1: This test was performed at: [facility], [address] [place] [address], [address] , Formerly [facility] ([place])01-25-2024 Evaluation + Plan note Future Scheduled Tests Laboratory* Urine Culture 01/25/24 [facility] 05-28-2024 Evaluation + Plan note Future Scheduled Tests Laboratory* Urine Culture 01/25/24 Radiology* XR Abdomen AP 09/29/24 [facility] 04-29-2024 Telephone encounter Note* Telephone Encounter - Denisse Mayer - 12/27/2023 1:12 PM EDT Urology [facility] into [facility]04-29-2024 Miscellaneous Notes* Telephone Encounter - Denisse Mayer - 12/27/2023 1:12 PM EDT Urology one records [facility] to [facility] and scanned into epic documented in [facility] encounterAccess [facility] [place]Evaluation + Plan note Future Appointments Appointment Date:01/25/2024 01:40:00 PM Scheduled Provider:VERONICA SALDIVAR Location:UROLOGY Appointment Type:URO OV 20 min [facility] [employer] + Plan note Future Appointments Appointment Date:02/21/2024 02:20:00 PM Scheduled Provider:VERONICA SALDIVAR Location:UROLOGY Appointment Type:URO OV Physical 20 min Appointment Date:03/03/2024 07:30:00 AM Scheduled Provider: Location:Main OR Appointment Type:Surgery [facility] Urology Future Scheduled Tests Laboratory* Basic Metabolic Panel 01/25/24 * Urine Culture 01/25/24 * Complete Blood Count 01/25/24 [facility] [employer] + Plan note Future Appointments Appointment Date:03/03/2024 02:55:00 PM Scheduled Provider: Location:Main OR Appointment Type:Surgery [facility] Urology Future Scheduled Tests Laboratory* Urine Culture 01/25/24 [facility] [employer] + Plan note Future Appointments Appointment Date:09/27/2024 01:10:00 PM Scheduled Provider:LILI NGO MD Location:UROLOGY Appointment Type:URO OV Future Scheduled Tests Laboratory* Urine Culture 01/25/24 Radiology* XR Abdomen AP 09/29/24 [facility] [employer] + Plan note Future Appointments Appointment Date:12/29/2024 03:20:00 PM Scheduled Provider: Location:Main OR Appointment Type:Surgery [facility] Urology Future Scheduled Tests Laboratory* Urine Culture 01/25/24 Radiology* XR Abdomen AP 09/29/24 [facility] [employer] + Plan note Future Appointments Appointment Date:12/29/2024 10:50:00 AM Scheduled Provider: Location:Main OR Appointment Type:Surgery [facility] Urology Future Scheduled Tests Laboratory* Urine Culture 01/25/24 Radiology* XR Abdomen AP 09/29/24 [facility] Hospital course Narrative No data available for this section [facility] Discharge instructions No data available for this section [facility] Progress note No data available for this section [facility] Reason for referral (narrative)No reason for referral information [facility] Phone: Summary Purpose Family History Relationship Condition Age at Onset Recorded Date/T kyle Not Specified Malignant neoplasm of breast Unknown mother Disorder of thyroid Unknown Hypertension Unknown Hypercholesterolemia Unknown Advance Directives No Advanced Directives Records FoundNo Advanced Directives Records FoundNo Advanced Directives Records FoundNo Advanced Directives Records FoundNo Advanced Directives Records FoundNo Advanced Directives Records FoundNo Advanced Directives Records FoundNo Advanced Directives Records FoundNo Advanced Directives Records FoundNo Advanced Directives Records Found Chief Complaint and Reason for Visit Chief Complaint Admit Date EST NEW PT - FORMER PT [facility] [place]- NEEDS PP WK March 26, 2025 1:23pm Reason for Visit Admit Date Annular tear of lumbar disc March 26, 025 1:23pm Bipolar 1 disorder March 26, 2025 1:23 pm Encounter to establish care with new pro vider March 26, 2025 1:23pm 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 DATE CREATED AUTHOR AUTHOR'S ORGANIZ ATION 06/13/2020 [facility] DATE CREATED AUTHOR AUTHOR'S ORGANIZ ATION 08/26/2021 [facility] DATE CREATED AUTHOR AUTHOR'S ORGANIZ ATION 11/30/2021 [facility] DATE CREATED AUTHOR AUTHOR'S ORGANIZ ATION 10/29/2023 [facility] DATE CREATED AUTHOR AUTHOR'S ORGANIZ ATION 12/28/2023 [facility] DATE CREATED AUTHOR AUTHOR'S ORGANIZ ATION 04/15/2024 [facility] DATE CREATED AUTHOR AUTHOR'S ORGANIZ ATION 12/15/2024 [facility] DATE CREATED AUTHOR AUTHOR'S ORGANIZ ATION 03/04/2025 [facility] DATE CREATED AUTHOR AUTHOR'S ORGANIZ ATION 03/09/2025 [facility] Source Comments (unrecognize d section and content) In the event this informatio n is protected by the Federal Confidentiality of Alcohol and Drug Abuse Patient Records regulations: The Federal rules restrict any use of the information to criminally investigate or prosecute any alcohol or drug abuse patient.[facility] the event this information is protected by the Federal Confidentiality of Alcohol and Drug Abuse Patient Records regulations: The Federal rules restrict any use of the information to criminally investigate or prosecute any alcohol or drug abuse patient.[facility] the event this information is protected by the Federal Confidentiality of Alcohol and Drug Abuse Patient Records regulations: The Federal rules restrict any use of the information to criminally investigate or prosecute any alcohol or drug abuse patient.[facility] Reason for Visit (unrecogniz ed section and content) Reason Comments records request Patient Care team informatio n (unrecognized section and content) Team Status: Active Member Role/Relationship Status Dates Justa Ungerer , [employer] Primary Care Provider Active Team Status: Inactive Member Role/Relationship Status Dates Justa Ungerer , [employer] Primary Care Provider Active Start: March 26, 2025 End: March 26, 2025 Justa Ungerer , [employer] Attending Provider Active Start: March 26, 2025 End: March 26, 2025 Justa Ungerer , [employer] Referring Provider Active Start: March 26, 2025 End: March 26, 2025 Team Status: Active Member Role/Relationship Status Dates Justa Ungerer , [employer] Primary Care Provider Active Start: March 26, 2025 Justa Louiseerer , [employer] Attending Provider Active Start: March 26, 2025 Justa Ungerer , [employer] Referring Provider Active Start: March 26, 2025 Goals (unrecognized section and content) Goals may be documented in a n alternate section FOR RECORDS PERTAINING TO PATIENTS WHO ARE OR HAVE BEEN ENROLLED IN A CHEMICAL DEPENDENCY/SUBSTANCEABUSE PROGRAM, SOME INFORMATION MAY BE OMITTED. This clinical summary was aggregated from multiple sources. Caution should be exercised in using it in the provision of clinical care. This summary normalizes information from multiple sources, and as a consequence, information in this document may materially change the coding, format and clinical context of patient data. In addition, data may be omitted in some cases. CLINICAL DECISIONS SHOULD BE BASED ON THE PRIMARY CLINICAL RECORDS. [facility] [employer], [facility] provides no warranty or guarantee of the accuracy or completeness of information in this document.
== END | disposition home or self-care (01) ==
LOC: BIMLAB 14:54
PROVIDERS: PCP Nurse Practitioner Family; Referring Provider Nurse Practitioner Family; Visit Provider Nurse Practitioner Family
DX: E78.00 Pure hypercholesterolemia, unspecified (principal); S33.5XXA Sprain of ligaments of lumbar spine, initial encounter
CPT/HCPCS: 36415; 80053; 80061; 83036; 84439; 84443; 84481; 84550; 85025